=== PATIENT | male | born 1940 | race Caucasian/White ===

== ENCOUNTER 2018-07-19 18:11 | Inpatient (IN) | payer OTHER ==
[~2018-07-19] VITALS: Ht 180.3 cm; Wt 105.5 kg
[2018-07-19 19:38] LABS: Basophils # (auto) 0.1 uL; Basophils % (auto) 0.7 % (0.0-2.0); Eosinophils # (auto) 0.1 uL; Eosinophils % (auto) 1.3 % (0.0-7.0); Hematocrit 42.3 % (41.0-53.0); Hemoglobin 14.1 g/dL (13.5-17.5); Lymphocytes % (auto) 21.3 % (10.0-50.0); Mean Corpuscular Hemoglobin 33.6 pg (28.0-32.0); Mean Corpuscular Hgb Conc. 33.3 g/dL (32.0-36.0); Mean Corpuscular Volume 100.8 fL (80.0-100.0); Monocytes # (auto) 0.8 uL; Monocytes % (auto) 8.1 % (0.0-12.0); Neutrophils # (auto) 6.5 uL; Neutrophils % (auto) 68.6 % (37.0-80.0); Nucleated Red Blood Cells % 0.1 %; Platelet Count (auto) 341 10^3/uL (140-450); Red Cell Distribution Width 12.7 % (11.8-14.3); White Blood Cell 9.4 10^3/uL (4.4-10.8)
[2018-07-19 19:53] LABS: Urine WBC None Seen /hpf (0 - 3)
[2018-07-19 19:54] LABS: INR 0.93 (0.9-1.15); Partial Thromboplastin Time 27.8 sec (23.78-33.04)
[2018-07-19 19:56] LABS: Alanine Aminotransferase 17 U/L (16-61); Albumin 3.2 g/dL (3.4-5.0); Anion Gap 6 (5-15); Aspartate Aminotransferase 15 U/L (15-37); BUN/Creatinine Ratio 9.6; Blood Urea Nitrogen 11 mg/dL (7-18); Calcium 8.4 mg/dL (8.5-10.1); Carbon Dioxide 27 mmol/L (21-32); Chloride 108 mmol/L (98-107); GFR African American 79 mL/min; GFR Non-African American 66 mL/min; Glucose 107 mg/dL (74-106); Magnesium 2.2 mg/dL (1.6-2.6); Potassium 4.3 mmol/L (3.5-5.1); Sodium 141 mmol/L (136-145)
[2018-07-19 20:01] LABS: Alkaline Phosphatase 71 U/L (45-117); Bilirubin, Total 0.6 mg/dL (0.2-1.0); Total Protein 6.8 g/dL (6.4-8.2)
[2018-07-19 20:12] LABS: Urine Bacteria NONE SEEN /hpf (None Seen); Urine Blood Negative /uL (Negative); Urine Specific Gravity 1.003 (1.001-1.035)
[2018-07-19] MEDS ORDERED: TEMAZEPAM 15 MG CAP PO PRN (22:00)
[2018-07-19] MEDS ORDERED: ONDANSETRON HCL 4 MG/2 ML VIAL IV PRN (22:00)
[2018-07-19] MEDS ORDERED: LEVOFLOXACIN 500MG 100 ML IV ONE (22:00)
[2018-07-19] MEDS: FAMOTIDINE 20 MG TAB PO SCH (22:00)
[2018-07-19] MEDS ORDERED: DOCUSATE SOD 100 MG CAP PO PRN (22:00)
[2018-07-19] MEDS: PRAVASTATIN SODIUM 20 MG TAB PO SCH (22:00)
[2018-07-19] MEDS ORDERED: ACETAMINOPHEN 325 MG TAB PO PRN (22:00)
[2018-07-19] MEDS ORDERED: DONEPEZIL HYDROCHLORIDE 5 MG TAB PO SCH (22:00)
[2018-07-19] MEDS: HYDROcodone-ACET 5/325MG TAB PO PRN (22:20)
[2018-07-20] MEDS ORDERED: LORazepam 2MG/ML-1ML VIAL ONE (01:42)
[2018-07-20] MEDS ORDERED: LORazepam 2MG/ML-1ML VIAL IV ONE ×2 (01:45→03:30)
[2018-07-20] MEDS ORDERED: HALOPERIDOL LACTATE 5 MG/ML INJ VIAL IM ONE ×3 (02:30→18:30)
[2018-07-20] MEDS ORDERED: HALOPERIDOL LACTATE 5 MG/ML INJ VIAL ONE (02:53)
[2018-07-20] MEDS ORDERED: PRAV20TA3 PO (09:19)
[2018-07-20] MEDS ORDERED: LOSA-49 PO (09:19)
[2018-07-20] MEDS ORDERED: DONE10TA17 PO (09:19)
[2018-07-20] MEDS ORDERED: QUET25TA37 PO (09:19)
[2018-07-20] MEDS ORDERED: FELO10TA PO (09:19)
[2018-07-20] MEDS: LEVOFLOXACIN 500MG 100 ML IV SCH (11:30)
[2018-07-20] MEDS: ENOXAPARIN SOD 40 MG/0.4 ML SYRINGE SC SCH (11:30)
[2018-07-20] MEDS: LOSARTAN POTASSIUM 50 MG TAB PO SCH (11:34)
[2018-07-20] MEDS: FAMOTIDINE 20 MG TAB PO SCH ×2 (11:34→22:01)
[2018-07-20] MEDS: LORazepam 0.5 MG TAB PO PRN (15:33)
[2018-07-20 20:20] VITALS: BP 124/72
[2018-07-20] MEDS: PRAVASTATIN SODIUM 20 MG TAB PO SCH (22:01)
[2018-07-20] MEDS: DONEPEZIL HYDROCHLORIDE 5 MG TAB PO SCH (22:01)
[2018-07-20] MEDS: QUEtiapine FUMARATE 25 MG TAB PO SCH (22:02)
[2018-07-21 04:27] VITALS: BP 129/73
[2018-07-21 09:00] VITALS: BP 148/67
[2018-07-21] MEDS: ENOXAPARIN SOD 40 MG/0.4 ML SYRINGE SC SCH (10:35)
[2018-07-21] MEDS: LEVOFLOXACIN 500MG 100 ML IV SCH (10:35)
[2018-07-21] MEDS: LOSARTAN POTASSIUM 50 MG TAB PO SCH (10:36)
[2018-07-21] MEDS: FAMOTIDINE 20 MG TAB PO SCH ×2 (10:36→21:39)
[2018-07-21 12:50] VITALS: BP 131/62
[2018-07-21] MEDS: LORazepam 0.5 MG TAB PO PRN ×2 (14:28→15:54)
[2018-07-21] MEDS ORDERED: LEVO500T21 PO (15:30)
[2018-07-21] MEDS ORDERED: SACC250C PO (15:30)
[2018-07-21 16:44] VITALS: BP 142/70
[2018-07-21 17:52] LABS: Basophils # (auto) 0 uL; Basophils % (auto) 0.4 % (0.0-2.0); Eosinophils # (auto) 0.1 uL; Eosinophils % (auto) 1.3 % (0.0-7.0); Hematocrit 45.7 % (41.0-53.0); Hemoglobin 15.2 g/dL (13.5-17.5); Lymphocytes # (auto) 1.9 uL; Lymphocytes % (auto) 18.7 % (10.0-50.0); Mean Corpuscular Hemoglobin 33.4 pg (28.0-32.0); Mean Corpuscular Hgb Conc. 33.2 g/dL (32.0-36.0); Mean Corpuscular Volume 100.6 fL (80.0-100.0); Monocytes # (auto) 0.9 uL; Monocytes % (auto) 8.6 % (0.0-12.0); Neutrophils # (auto) 7.3 uL; Platelet Count (auto) 374 10^3/uL (140-450); Red Blood Cells 4.54 10^6/uL (4.5-5.90); Red Cell Distribution Width 12.6 % (11.8-14.3); White Blood Cell 10.2 10^3/uL (4.4-10.8)
[2018-07-21 18:29] LABS: Calcium 9.7 mg/dL (8.5-10.1); Magnesium 2.2 mg/dL (1.6-2.6); Potassium 4.6 mmol/L (3.5-5.1)
[2018-07-21 18:39] LABS: BUN/Creatinine Ratio 12.5
[2018-07-21] MEDS: HYDROcodone-ACET 5/325MG TAB PO PRN (20:43)
[2018-07-21] MEDS: PRAVASTATIN SODIUM 20 MG TAB PO SCH (21:39)
[2018-07-21] MEDS: DONEPEZIL HYDROCHLORIDE 5 MG TAB PO SCH (21:39)
[2018-07-21] MEDS: QUEtiapine FUMARATE 25 MG TAB PO SCH (21:40)
[2018-07-21 22:00] VITALS: BP 139/91
[2018-07-22 05:04] VITALS: BP 141/75
[2018-07-22 08:00] VITALS: BP 148/67
[2018-07-22 09:00] VITALS: BP 149/82
[2018-07-22] MEDS ORDERED: LEVOFLOXACIN 500 MG TAB PO SCH (10:00)
[2018-07-22] MEDS: FAMOTIDINE 20 MG TAB PO SCH (10:12)
[2018-07-22] MEDS: ENOXAPARIN SOD 40 MG/0.4 ML SYRINGE SC SCH (10:12)
[2018-07-22] MEDS: LOSARTAN POTASSIUM 50 MG TAB PO SCH (10:12)
[2018-07-22 12:32] VITALS: BP 149/82
[2018-07-22 13:00] VITALS: BP 150/84
[2018-07-22 13:30] VITALS: BP 149/82
== END 2018-07-22 16:00 | DRG 70 ==
LOC: ER 18:20 → OVERFLOW 18:21 → WEST WING 07-20 08:30
PROVIDERS: ADMIT Nurse Practitioner; ATTEND Internal Medicine
DX: G93.41 Metabolic encephalopathy (principal); J18.9 Pneumonia, unspecified organism; I24.9 Acute ischemic heart disease, unspecified; F41.9 Anxiety disorder, unspecified; F03.90 Unspecified dementia, unspecified severity, without behavioral disturbance, psychotic disturbance, mood disturbance, and anxiety; E78.5 Hyperlipidemia, unspecified; I10 Essential (primary) hypertension; Z86.73 Personal history of transient ischemic attack (TIA), and cerebral infarction without residual deficits
CPT/HCPCS: 36415; 70450; 71045; 71250; 80048; 80053; 80061; 81001; 83735; 84443; 84484; 85025; 85610; 85730; 93005; 94761; 96365; 96372; 96375; J1956

== ENCOUNTER 2024-02-23 20:28 | Emergency (ER) | payer OTHER ==
[~2024-02-23] VITALS: Ht 182.9 cm; Wt 110.0 kg
[~2024-02-23 20:28] MED LIST: DONE10TA9 PO; FELO10TA28 PO; LEVO500T31 PO; LOSA-535 PO; PRAV20TA3 PO; QUET25TA37 PO; SACC250C PO
[2024-02-23 21:27] LABS: Basophils # (auto) 0 10 ^3/uL (0-0.2); Basophils % (auto) 0.4 % (0.0-2.0); Eosinophils # (auto) 0.1 10 ^3/uL (0-0.8); Eosinophils % (auto) 0.4 % (0.0-7.0); Hematocrit 49.2 % (41.0-53.0); Hemoglobin 16.5 g/dL (13.5-17.5); Lymphocytes # (auto) 1.3 10 ^3/uL (0.4-5.4); Lymphocytes % (auto) 9.5 % (10.0-50.0); Mean Corpuscular Hemoglobin 32.1 pg (28.0-32.0); Mean Corpuscular Hgb Conc. 33.5 g/dL (32.0-36.0); Mean Corpuscular Volume 95.8 fL (80.0-100.0); Monocytes # (auto) 1.1 10 ^3/uL (0-1.3); Neutrophils # (auto) 10.8 10 ^3/uL (1.6-8.6); Neutrophils % (auto) 81.7 % (37.0-80.0); Red Blood Cells 5.13 10^6/uL (4.5-5.90); Red Cell Distribution Width 13.6 % (11.8-14.3); White Blood Cell 13.3 10^3/uL (4.4-10.8)
[2024-02-23 21:47] LABS: INR 1.03 (0.9-1.15); Partial Thromboplastin Time 29.4 SEC (24.5-34.5); Prothrombin Time 10.8 sec (9.3-11.8)
[2024-02-23 21:48] LABS: Alanine Aminotransferase 22 U/L (7-40); Albumin 4.1 g/dL (3.2-4.8); Alkaline Phosphatase 63 U/L (46-116); Anion Gap 8 (5-15); Aspartate Aminotransferase 25 U/L (13-40); BUN/Creatinine Ratio 13.3 (10.0-20.0); Blood Urea Nitrogen 14 mg/dL (9-23); Calcium 9.4 mg/dL (8.5-10.1); Carbon Dioxide 25 mmol/L (20-30); Chloride 105 mmol/L (98-107); Glucose 125 mg/dL (74-106); Potassium 4.6 mmol/L (3.5-5.1); Sodium 138 mmol/L (136-145)
[2024-02-23 21:49] LABS: Bilirubin, Total 0.6 mg/dL (0.2-1.0); Total Protein 6.6 g/dL (5.7-8.2)
[2024-02-24 00:30] VITALS: PULSE 89; RESP 20; O2SAT 94
[2024-02-24] MEDS ORDERED: CEPH250C PO (01:01)
[2024-02-24] MEDS ORDERED: ACET500T58 PO (01:01)
[2024-02-24] MEDS: LORazepam 2MG/ML-1ML VIAL IM ONE (02:07)
[2024-02-24] MEDS: LORazepam 2MG/ML-1ML VIAL ONE (02:07)
[2024-02-24 10:51] VITALS: BP 114/74; PULSE 85; RESP 15; TEMP 98.5; O2SAT 98
== END 2024-02-24 12:00 ==
LOC: ER 20:28 → EDBD 20:28 → ER 02-24 12:00
DX: S01.01XA Laceration without foreign body of scalp, initial encounter (principal); I10 Essential (primary) hypertension; E78.5 Hyperlipidemia, unspecified; F03.90 Unspecified dementia, unspecified severity, without behavioral disturbance, psychotic disturbance, mood disturbance, and anxiety; Z86.73 Personal history of transient ischemic attack (TIA), and cerebral infarction without residual deficits; Z98.890 Other specified postprocedural states; Z79.899 Other long term (current) drug therapy; Z86.2 Personal history of diseases of the blood and blood-forming organs and certain disorders involving the immune mechanism; W01.198A Fall on same level from slipping, tripping and stumbling with subsequent striking against other object, initial encounter; Y93.89 Activity, other specified; Y92.89 Other specified places as the place of occurrence of the external cause; Y99.8 Other external cause status
CPT/HCPCS: 12002; 36415; 70450; 72125; 80053; 84484; 85025; 85610; 85730; 93005; 96372; 99284; J2060

== ENCOUNTER 2024-10-15 17:22 | Emergency (ER) | payer OTHER ==
[~2024-10-15] VITALS: Ht 172.7 cm; Wt 86.0 kg
[2024-10-15] MEDS: SOD CHL 0.45% 500 ML IV ONE (02:33)
[~2024-10-15 17:22] MED LIST changes: +ACET500T58 PO; +CEPH250C PO
--- NOTE | 2024-10-15 18:05 | ED.PDOC ---
History of Present Illness HPI Comments 84 year old male MEG presents to the ED with chief complaint of generalized weakness. EMS reports patient is coming from [facility] with noted generalized weakness as patient normally gets out of bed every day, except for today. EMS relays patient is not able to give any accurate history due to his dementia and patient has no complaints at this time or the reason why he is in the ED. Patient states he was sleeping when EMS arrived and does not remember anything about today. Patient denies any and all symptoms at this time. Chief Complaint: General Weakness Time Seen by MD: 17:58 Primary Care Provider: DR. FRAGOSO Reviewed Notes: Nurses Notes, Channel Installer Notes, Medications, Allergies Allergies: Coded Allergies: Penicillins (Verified Allergy, Unknown, 07/19/18) Home Meds Active Scripts Acetaminophen (Acetaminophen) 500 Mg Tab, 500 MG PO Q4HP PRN, #30 TAB Prov:REMEDIOS NIXON PAC 02/24/24 Cephalexin (KEFLEX CAPSULE) 250 Mg Cp, 1 CAP PO QID for 7 Days, #28 CAP Prov:REMEDIOS NIXON PAC 02/24/24 Yeast (S. Boulardii)(S. Cerevi (Florastor) 250 Mg Cap, 250 MG PO DAILY, #7 CAP Prov:IRA TOMAS MD 07/21/18 Levofloxacin (Levaquin) 500 Mg Tab, 500 MG PO DAILY, #5 TAB Prov:IRA TOMAS MD 07/21/18 Reported Medications Felodipine (Felodipine Er) 10 Mg Tab, 10 MG PO DAILY for 30 Days, MG 07/20/18 Losartan Potassium (Losartan Potassium) 100 Mg Tab, 1 TAB PO DAILY, #30 TAB 5 Refills 07/20/18 Donepezil Hydrochloride (Aricept) 10 Mg Tab, 10 MG PO DAILY, TAB 07/20/18 Pravastatin Sodium (PRAVACHOL TABLET) 20 Mg Tb, 2 TAB PO QHSP, #90 TAB 1 Refill 07/20/18 Quetiapine Fumerate (Seroquel) 25 Mg Tab, 25 MG PO QHSP for 30 Days, MG 07/20/18 Information Source: Patient, Emergency Med Personnel Mode of Arrival: EMS Severity: Moderate Timing: Hours Duration: Since onset Prehospital treatment: None Past Medical History PAST MEDICAL HISTORY: Dementia, High Lipids, HTN, TIA Surgical History: Hernia Repair Family History Family History: Reviewed,noncontributory to illness, Unknown Social History Smoker: Non-Smoker Alcohol: Denies ETOH Use Drugs: Denies Drug Use Lives In: Assisted Care Constitutional: reports: weakness; denies: chills, diaphoresis, fatigue, fever, malaise, sweats, others EENTM: denies: blurred vision, double vision, ear bleeding, ear discharge, ear drainage, ear pain, ear ringing, eye pain, eye redness, hearing loss, mouth pain, mouth swelling, nasal discharge, nose bleeding, nose congestion, nose pain, photophobia, tearing, throat pain, throat swelling, voice changes, others Respiratory: denies: cough, hemoptysis, orthopnea, SOB at rest, shortness of breath, SOB with excertion, stridor, wheezing, others Cardiovascular: denies: chest pain, dizzy spells, diaphoresis, Dyspnea on exertion, edema, irregular heart beat, left arm pain, lightheadedness, palpitations, PND, syncope, others Gastrointestinal: denies: abdomen distended, abdominal pain, blood streaked bowels, constipated, diarrhea, dysphagia, difficulty swallowing, hematemesis, melena, nausea, poor appetite, poor fluid intake, rectal bleeding, rectal pain, vomiting, others Genitourinary: denies: burning, dysuria, flank pain, frequency, hematuria, incontinence, penile discharge, penile sore, pain, testicle pain, testicle swelling, urgency, others Neurological: denies: dizziness, fainting, headache, left sided numbness, left sided weakness, numbness, paresthesia, pre-existing deficit, right sided numbness, right sided weakness, seizure, speech problems, tingling, tremors, weakness, others Musculoskeletal: denies: back pain, gout, joint pain, joint swelling, muscle pain, muscle stiffness, neck pain, others Integumetry: denies: bruises, change in color, change in hair/nails, dryness, laceration, lesions, lumps, rash, wounds, others Allergic/Immunocompromised: denies: Difficulty Healing, Frequent Infections, Hives, Itching, others Hematologic/Lymphatic: denies: anemia, blood clots, easy bleeding, easy bruising, swollen glands, others Endocrine: denies: excessive hunger, excessive sweating, excessive thirst, excessive urination, flushing, intolerance to cold, intolerance to heat, unexplained weight gain, unexplained weight loss, others Psychiatric: denies: anxiety, bipolar disorder, depression, hopeless, panic di sorder, schizophrenia, sleepless, suicidal, others Unable to Obtain due to: Dementia All Other Systems: Reviewed and Negative Physical Exam General Appearance: No Apparent Distress, Normal, Other (Patient cooperative and has clear speech) HEENT: Normal ENT Inspection, Pharynx Normal, TMs Normal Neck: Full Range of Motion, Non-Tender, Normal, Normal Inspection Respiratory: Chest Non-Tender, Lungs Clear, No Accessory Muscle Use, No Respiratory Distress, Normal Breath Sounds Cardiovascular: No Edema, No JVD, No Murmur, No Gallop, Normal Peripheral Pulses, Regular Rate/Rhythm Breast Exam: Deferred Gastrointestinal: No Organomegaly, No Pulsatile Mass, Normal Bowel Sounds, Soft, Tenderness (mild diffused) Genitalia: Deferred Pelvic: Deferred Rectal: Deferred Extremities: No calf tenderness, Normal capillary refill, Normal inspection, Normal range of motion, Non-tender, No pedal edema Musculoskeletal : Apperance: Normal Neurologic: Alert, ent nurse II-XII nml as Tested, No Motor Deficits, Normal Affect, Normal Mood, No Sensory Deficits Cerebellar Function: Normal Reflexes: Normal Skin: Dry, Normal Color, Warm Lymphatic: No Adenopathy Was a procedure done? Was a procedure done?: No EKG EKG : Pulse Rate (adult): 77 [place]: LAD Cardiac Rhythm: NSR, PVC's Block: None Hypertrophy: None ST: Normal Differential Dx Considerations may include: uti, pneumonia, dementia, viral infection, hypoglycemia, hypotension, electrolyte disorders X-Ray, Labs, Meds, VS Vital Signs Date Time Temp Pulse Resp B/P (MAP) Pulse Ox O2 Delivery O2 Flow Rate FiO2 10/15/24 19:49 77 10/15/24 17:45 97.9 69 18 126/67 (86) 98 Lab Test 10/15/24 19:30 10/15/24 18:30 Range/Units Troponin I High Sensitivity 13 14 </=54 ng/L White Blood Count 8.8 4.4-10.8 10^3/uL Red Blood Count 5.32 4.5-5.90 10^6/uL Hemoglobin 16.9 13.5-17.5 g/dL Hematocrit 50.9 41.0-53.0 % Mean Corpuscular Volume 95.5 80.0-100.0 fL Mean Corpuscular Hemoglobin 31.7 28.0-32.0 pg Mean Corpuscular Hemoglobin Concent 33.2 32.0-36.0 g/dL Red Cell Distribution Width 14.0 11.8-14.3 % Platelet Count 293 140-450 10^3/uL Mean Platelet Volume 9.8 6.9-10.8 fL Neutrophils (%) (Auto) 64.9 37.0-80.0 % Lymphocytes (%) (Auto) 23.2 10.0-50.0 % Monocytes (%) (Auto) 8.4 0.0-12.0 % Eosinophils (%) (Auto) 3.3 0.0-7.0 % Basophils (%) (Auto) 0.2 0.0-2.0 % Neutrophils # (Auto) 5.7 1.6-8.6 10 ^3/uL Lymphocytes # (Auto) 2.1 0.4-5.4 10 ^3/uL Monocytes # (Auto) 0.7 0-1.3 10 ^3/uL Eosinophils # (Auto) 0.3 0-0.8 10 ^3/uL Basophils # (Auto) 0 0-0.2 10 ^3/uL Nucleated Red Blood Cells 0.1 % Sodium Level 138 136-145 mmol/L Potassium Level 4.2 3.5-5.1 mmol/L Chloride Level 106 98-107 mmol/L Carbon Dioxide Level 27 20-31 mmol/L Anion Gap 5 5-15 Blood Urea Nitrogen 14 9-23 mg/dL Creatinine 1.01 0.700-1.30 mg/dL Glomerular Filtration Rate Calc 73 >90 mL/min BUN/Creatinine Ratio 13.9 10.0-20.0 Serum Glucose 121 H 74-106 mg/dL Calcium Level 10.0 8.7-10.4 mg/dL Total Bilirubin 0.5 0.2-1.0 mg/dL Aspartate Amino Transferase (AST) 19 13-40 U/L Alanine Aminotransferase (ALT) 24 7-40 U/L Alkaline Phosphatase 97 46-116 U/L Total Protein 7.1 5.7-8.2 g/dL Albumin 4.1 3.2-4.8 g/dL Lipase 34 12-53 U/L Time of 1ST Reevaluation: 18:58 Reevaluation 1ST: Unchanged Patient Education/Counseling: Diagnosis, Treatment, Prognosis, Need For Follow Up Family Education/Counseling: No Family Present Additional Information I reviewed the following notes from the pt's past medical encounters: Visit for head trauma on 02/23/24. The following tests were ordered, and results were reviewed by me: CBC, CMP, Troponin, UA, chest XR, and EKG. Additional information was gathered from interviewing the following independent historians: EMT and nursing staff. I reviewed and agreed with the following test results read by other providers: Chest XR I discussed treatments and results with medical personnel. pt has dementia and does not have any complaints nor knows why he is here. however, [facility] staff found him to ve noticeably weaker. the workup shows he may have pneumonia. he will be admitted for treatment and monitoring Departure 1 Departure Time of Disposition: 20:50 Impression: Primary Impression: Generalized weakness Additional Impressions: Pneumonia Qualified Codes: J18.9 - Pneumonia, unspecified organism Abdominal tenderness Qualified Codes: R10.817 - Generalized abdominal tenderness Disposition: ADMITTED INPATIENT Admit to: Med Surg Condition: Stable Critical Care Note Critical Care Time?: Yes (45 min-critical care time only) Critical care comment: due to concerns for pt's condition deteriorating, the care required my highest level of attention and readiness to intervene. i assessed the patient, ordered the appropriate treatments and tests and reassessed his response. i communicated with medical personnel and consultants, i reviewed his medical records, and formulated a treatment plan. cc time does not include any procedures Stability Stability form required: No Heart Score Heart Score: Heart Score Response (Comments) Value History N/A 0 EKG N/A 0 Age N/A 0 Risk Factors N/A 0 Troponin N/A 0 Total 0 I personally scribed for CODY GARDUNO MD ([email or web address]) on 10/15/24 at 18:04. Electronically submitted by Uriel Sibley ([email or web address]). CODY GARDUNO MD Oct 15, 2024 18:04
[2024-10-15 18:58] LABS: Basophils # (auto) 0 10 ^3/uL (0-0.2); Basophils % (auto) 0.2 % (0.0-2.0); Eosinophils # (auto) 0.3 10 ^3/uL (0-0.8); Eosinophils % (auto) 3.3 % (0.0-7.0); Hematocrit 50.9 % (41.0-53.0); Hemoglobin 16.9 g/dL (13.5-17.5); Lymphocytes # (auto) 2.1 10 ^3/uL (0.4-5.4); Lymphocytes % (auto) 23.2 % (10.0-50.0); Mean Corpuscular Hemoglobin 31.7 pg (28.0-32.0); Mean Corpuscular Hgb Conc. 33.2 g/dL (32.0-36.0); Mean Corpuscular Volume 95.5 fL (80.0-100.0); Monocytes # (auto) 0.7 10 ^3/uL (0-1.3); Monocytes % (auto) 8.4 % (0.0-12.0); Neutrophils # (auto) 5.7 10 ^3/uL (1.6-8.6); Neutrophils % (auto) 64.9 % (37.0-80.0); Nucleated Red Blood Cells % 0.1 %; Platelet Count (auto) 293 10^3/uL (140-450); Red Blood Cells 5.32 10^6/uL (4.5-5.90); White Blood Cell 8.8 10^3/uL (4.4-10.8)
[2024-10-15 19:02] LABS: Alanine Aminotransferase 24 U/L (7-40); Albumin 4.1 g/dL (3.2-4.8); Alkaline Phosphatase 97 U/L (46-116); Anion Gap 5 (5-15); Aspartate Aminotransferase 19 U/L (13-40); BUN/Creatinine Ratio 13.9 (10.0-20.0); Blood Urea Nitrogen 14 mg/dL (9-23); Carbon Dioxide 27 mmol/L (20-31); Chloride 106 mmol/L (98-107); Potassium 4.2 mmol/L (3.5-5.1); Sodium 138 mmol/L (136-145)
[2024-10-15 19:03] LABS: Bilirubin, Total 0.5 mg/dL (0.2-1.0); Total Protein 7.1 g/dL (5.7-8.2)
[2024-10-15 19:06] LABS: Glucose 121 mg/dL (74-106)
--- NOTE | 2024-10-15 19:40 | DVH ---
CHEST RADIOGRAPH Indication: weakness Technique: Single frontal view of the chest was obtained Comparison: None FINDINGS: Lines and Tubes: None Lungs: Right lower lung zone opacification. Linear densities over the left lung base. Elevated right hemidiaphragm. No pneumothorax. Cardiomediastinal contours: Unremarkable Bones: No acute osseous abnormality. IMPRESSION: Right lower lung zone pneumonia/atelectasis with left basilar atelectasis
--- NOTE | 2024-10-15 19:50 | DVH ---
Exam: CT CT AB PEL WO CON-NO ORAL OR IV History: pain Comparison Study: None available at time of dictation. TECHNIQUE: Multidetector CT of the abdomen and pelvis without contrast. Axial, coronal and sagittal m ultiplanar reformats were obtained from the axial data set by the technologist. Radiation Dose Information: CT Dose: CTDI volume is 13.14 mGy. Dose-length product is 844.92 mGy*cm FINDINGS: Bibasilar ground-glass opacities with inter lobar septal thickening. Elevated right hemidiaphragm. Mi ld cardiomegaly. 3.9 cm left hepatic lobe cyst. Otherwise, liver, spleen, pancreas and adrenal glands unremarkable. C holelithiasis with no CT evidence of acute cholecystitis. Mild nonspecific bilateral perirenal fat stranding. Multiple right renal cysts, largest measuring up to 4.8 cm. No hydronephrosis or renal calculi bilaterally. Thickening of the urinary bladder which is most likely from inadequate distension. Prostate is enlarged measuring 4.6 x 5.1 by 5.6 cm with calc ification. Small hiatal hernia. Stomach is unremarkable. Small bowel loops unremarkable. Appendix is not definit stefano visualized. Small to moderate amount of fecal material within the colon. Colonic diverticulosis w ithout diverticulitis. No evidence of intraperitoneal free air or free fluid. No evidence of aortic aneurysm. Moderate to heavy atherosclerotic calcification of the aorta and bila teral iliacs. No significant lymphadenopathy. Small fat containing left inguinal hernia with focus of calcification within the left inguinal canal. Multilevel severe degenerative changes of the lumbar spine. Anterior wedge deformity of L1 with abou t 50% loss of vertebral body height. There is anterior wedge deformity with about 20-30% loss of vert ebral body height of T12. Inferior T10 compression fracture with mild loss of vertebral body height o f unknown chronicity. Multilevel anterior bridging osteophytes of the thoracic and upper lumbar spine . IMPRESSION: Mild wall thickening of the urinary bladder which is most likely from inadequate distension. Correla tion with urinalysis is recommended to exclude cystitis. Colonic diverticulosis without diverticulitis. Right renal cysts. Cholelithiasis with no CT evidence of acute cholecystitis. If there is concern for acute cholecystit is, right upper quadrant ultrasound should be considered for further evaluation. Right hepatic lobe cyst. Bibasilar atelectasis/ scarring with underlying infectious process not excluded. Enlarged prostate. Recommend correlation with PSA. Anterior wedge deformity of L1 and T12 as detailed above. Compression fracture of the inferior verteb ral body of T10 of unknown chronicity. Additional findings as above.
[2024-10-15] MEDS: cefTRIAXone 1GM/50ML D5W 50 ML IV ONE (20:00)
[2024-10-15] MEDS ORDERED: LEVO500T91 PO (22:02)
[2024-10-15 22:45] VITALS: PULSE 86; RESP 15; TEMP 98.8; O2SAT 94
[2024-10-15] MEDS: levoFLOXacin 500MG 100 ML IV ONE (23:18)
--- NOTE | 2024-10-16 06:43 | ECG ---
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
--- NOTE | 2024-10-16 06:44 | ECG ---
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
[2024-10-16 08:40] VITALS: PULSE 53; RESP 16; O2SAT 95
[2024-10-16 10:00] VITALS: BP 154/84; PULSE 63; RESP 22; O2SAT 92
--- NOTE | 2024-10-16 12:48 | DVHDS2 ---
Physician Discharge Progress N Final Diagnosis: Pneumonia Operations or Procedures: Operations or Procedures none Other Interventions Other Interventions EKG, CXR, CT, lab results Consultations: Consultations none Commentary: Commentary 84 year old man was transferred from his living facility - [facility]. He has dementia and the staff informed ENTs that the patient was weaker that usually and he didn't want to get out of his bed today. Patient denied any symptoms including SOB or cough. His VS were within normal limits with O2 sat of 95% on RA. CXR showed right lower pneumonia/atelectasis. WBC was normal. Patient was given Levaquin IV but refused IVF. He remained stable in the ED. He was discharged back to [facility] to continue Levaquin for a week. Condition on Discharge: Stable Disposition: Assisted Living Facility SNF Discharge Will this Physician continue t: No Discharge Instructions: Diet: Cardiac 2g Na,low cholest Activity: No Restrictions, As Tolerated Follow Up/Referral: PMD in 3 days Medications: Levofloxacin 500 mg PO daily for 7 days. Prescription is sent to the pharmacy Follow Up Care: Discharge Statement: "Patient was advised to return to the ER or call 911 if any headaches, dizziness, shortness of breath, chest pain, abdominal pain, bleeding, fevers, or worsening of medical condition. Patient was counseled about treatment plan, medications, possible side effects, patientverbalized understanding. All questions were answered to the best of my ability. This discharge took greater then 30 minutes in planning, reviewing documentation, counseling the patient, and discussing with other team members." ERICA ALVAREZ MD Oct 16, 2024 12:48
== END 2024-10-16 11:13 ==
LOC: ER 17:22 → EDBD 17:22 → ER 10-16 11:13
DX: J18.9 Pneumonia, unspecified organism (principal); R53.1 Weakness; R10.819 Abdominal tenderness, unspecified site; E78.5 Hyperlipidemia, unspecified; I10 Essential (primary) hypertension; Z86.73 Personal history of transient ischemic attack (TIA), and cerebral infarction without residual deficits; Z88.0 Allergy status to penicillin; Z79.899 Other long term (current) drug therapy; Z98.890 Other specified postprocedural states
CPT/HCPCS: 36415; 71045; 74176; 80053; 83690; 84484; 85025; 93005; 96365; 99284; J1956

== ENCOUNTER 2025-08-29 23:02 | Emergency (ER) | payer OTHER ==
[~2025-08-29] VITALS: Ht 177.8 cm; Wt 81.0 kg
[~2025-08-29 23:02] MED LIST changes: +LEVO500T91 PO
--- NOTE | 2025-08-29 23:16 | ED.PDOC ---
History of Present Illness HPI Comments 84-year-old male who came to ER via EMS for weakness. Patient picked up at [facility]. He has a history of hypertension and dementia. Was seen lying on the ground office bedroom floor, preventing the door from opening, and preventing his wheelchair-bound roommate from getting out. Patient was noted to be acting more altered and confused than usual. Blood sugars on scene was 130. Denies any pain REVIEW OF SYSTEMS: General: No fever, no chills, or fatigue HEENT: No sore throat, no earache, no congestion, no neck pain. Cardiac: No chest pain. No palpitations. Lungs: No shortness of breath, no cough. GI: No nausea, no vomiting, no diarrhea, no constipation, no abdominal pain : No dysuria, frequency, or urgency. No hematuria. Musculoskeletal: No joint pain , no joint swelling, no extremity edema. Skin: No rash, no itching. Neuro: No headache, no dizziness, no weakness Physical exam GEN: Patient alert, in no acute distress HEENT: Atraumatic, normocephalic without edema, discoloration or evidence of trauma. Facial bones without deformities or tenderness EYES: PERRL. no scleral icterus or conjunctival injection. Extraocular muscles intact without nystagmus or diplopia. No proptosis or enophthalmos. EARS: Normal-appearing pinnae. No hemotympanum. NOSE: Trachea midline. No discolorations or edema. Neck immobilized in cervical collar. CVS: S1-S2 heard, regular rate and rhythm, no murmur RESPIRATORY: No respiratory distress. Breath sounds clear bilateral, no wheezes, rhonchi or rales; no use of accessory muscles CHEST: No abrasions or ecchymosis. Chest symmetric with respirations. No chest wall tenderness. No crepitus. No step-offs. Lungs are clear to auscultation bilaterally. No rales, rhonchi, wheezing or stridor. ABDOMINAL: No ecchymosis or abrasions. Soft, nondistended, nontender. Bowel tones normoactive. No masses or organomegaly. : No CVA tenderness MUSC: No gross deformities are discolorations or lesions. Tolerates full range of motion of extremities without tenderness. No edema of the extremities. BACK: No abrasions, skin openings or ecchymosis. Spine without bony tenderness. No step-offs. PELVIC: Pelvis stable, nontender to lateral compression and palpation of the symphysis pubis. NEURO: Alert and confused. GCS 15. 5 out of 5 in bilateral upper and lower extremities. SKIN: Warm and well perfused. No lacerations, bruises, discoloration or abrasions. PSYCH: Normal affect, normal mood, no apparent hallucinations, speech clear LYMPHATIC: No cervical lymphadenopathy Chief Complaint: Weakness Time Seen by MD: 23:15 Primary Care Provider: DR. FRAGOSO Reviewed Notes: [employer] Notes Allergies: Coded Allergies: Iodine (Verified Allergy, Unknown, 08/29/25) Penicillins (Verified Allergy, Unknown, 07/19/18) Home Meds Active Scripts Levofloxacin Hemihydrate (LEVOFLOXACIN) 500 Mg Tab, 1 TAB PO DAILY, #7 TAB Prov:ERICA ALVAREZ MD 10/15/24 Acetaminophen (Acetaminophen) 500 Mg Tab, 500 MG PO Q4HP PRN, #30 TAB Prov:REMEDIOS NIXON PAC 02/24/24 Cephalexin (KEFLEX CAPSULE) 250 Mg Cp, 1 CAP PO QID for 7 Days, #28 CAP Prov:REMEDISO NIXON PAC 02/24/24 Yeast (S. Boulardii)(S. Cerevi (Florastor) 250 Mg Cap, 250 MG PO DAILY, #7 CAP Prov:IRA TOMAS MD 07/21/18 Levofloxacin (Levaquin) 500 Mg Tab, 500 MG PO DAILY, #5 TAB Prov:IRA TOMAS MD 07/21/18 Reported Medications Felodipine (Felodipine Er) 10 Mg Tab, 10 MG PO DAILY for 30 Days, MG 07/20/18 Losartan Potassium (Losartan Potassium) 100 Mg Tab, 1 TAB PO DAILY, #30 TAB 5 Refills 07/20/18 Donepezil Hydrochloride (Aricept) 10 Mg Tab, 10 MG PO DAILY, TAB 07/20/18 Pravastatin Sodium (PRAVACHOL TABLET) 20 Mg Tb, 2 TAB PO QHSP, #90 TAB 1 Refill 07/20/18 Quetiapine Fumerate (Seroquel) 25 Mg Tab, 25 MG PO QHSP for 30 Days, MG 07/20/18 Information Source: Patient, Emergency Med Personnel Mode of Arrival: EMS Past Medical History PAST MEDICAL HISTORY: Dementia, High Lipids, HTN, TIA Surgical History: Hernia Repair Family History Family History: Reviewed,noncontributory to illness Social History Smoker: Non-Smoker Alcohol: Denies ETOH Use Drugs: Denies Drug Use Lives In: Assisted Care Was a procedure done? Was a procedure done?: No EKG EKG : Comments Multiple PVCs. No STEMI. Differential Dx Considerations may include: Anemia, electrolyte imbalance, encephalopathy, dementia, fall injury X-Ray, Labs, Meds, VS Vital Signs Date Time Temp Pulse Resp B/P (MAP) Pulse Ox O2 Delivery O2 Flow Rate FiO2 08/30/25 01:30 96 13 134/68 (90) 94 08/30/25 00:49 95 08/29/25 23:30 Room Air* 0 21 08/29/25 23:30 99.1 90 20 130/64 (86) 92 99.1 08/29/25 23:15 96 08/29/25 23:05 100.1 92 18 134/64 92 100.1 Lab Test 08/30/25 02:15 08/30/25 00:25 08/30/25 00:11 08/29/25 23:21 Range/Units Troponin I High Sensitivity 42 42 45 </=54 ng/L Urine Color Light-orange Yellow Urine Clarity Ex.turbid Clear Urine pH 6.0 5.0-9.0 Urine Specific [place] 1.014 1.001-1.035 Urine Protein 1+ H Negative Urine Ketones 1+ H Negative Urine Blood 1+ H Negative /uL Urine Nitrite 2+ H Negative Urine Bilirubin Negative Negative Urine Urobilinogen Normal Negative mg/dL Urine Leukocyte Esterase 3+ Negative /uL Urine RBC 10 0 - 3 /hpf Urine WBC Clumps Present None Seen /hpf Urine Microscopic WBC 2107 H 0-3 /HPF Urine Squamous Epithelial Cells None seen <5 /hpf Urine Bacteria Many H None Seen /hpf Urine Glucose Normal Normal mg/dL White Blood Count 10.5 4.4-10.8 10^3/uL Red Blood Count 5.13 4.5-5.90 10^6/uL Hemoglobin 16.0 13.5-17.5 g/dL Hematocrit 47.7 41.0-53.0 % Mean Corpuscular Volume 92.9 80.0-100.0 fL Mean Corpuscular Hemoglobin 31.2 28.0-32.0 pg Mean Corpuscular Hemoglobin Concent 33.6 32.0-36.0 g/dL Red Cell Distribution Width 14.4 H 11.8-14.3 % Platelet Count 278 140-450 10^3/uL Mean Platelet Volume 9.9 6.9-10.8 fL Neutrophils (%) (Auto) 78.1 37.0-80.0 % Lymphocytes (%) (Auto) 9.0 L 10.0-50.0 % Monocytes (%) (Auto) 12.6 H 0.0-12.0 % Eosinophils (%) (Auto) 0.0 0.0-7.0 % Basophils (%) (Auto) 0.3 0.0-2.0 % Neutrophils # (Auto) 8.2 1.6-8.6 10 ^3/uL Lymphocytes # (Auto) 0.9 0.4-5.4 10 ^3/uL Monocytes # (Auto) 1.3 0-1.3 10 ^3/uL Eosinophils # (Auto) 0 0-0.8 10 ^3/uL Basophils # (Auto) 0 0-0.2 10 ^3/uL Nucleated Red Blood Cells 0.1 % Sodium Level 139 136-145 mmol/L Potassium Level 4.2 3.5-5.1 mmol/L Chloride Level 106 98-107 mmol/L Carbon Dioxide Level 23 20-31 mmol/L Anion Gap 10 5-15 Blood Urea Nitrogen 11 9-23 mg/dL Creatinine 1.21 0.700-1.30 mg/dL Glomerular Filtration Rate Calc 59 >90 mL/min BUN/Creatinine Ratio 9.1 L 10.0-20.0 Serum Glucose 139 H 74-106 mg/dL Lactic Acid Level 1.1 0.4-2.0 mmol/L Calcium Level 9.2 8.7-10.4 mg/dL Magnesium Level 2.0 1.6-2.6 mg/dL B-Type Natriuretic Peptide 156.97 0-100 pg/mL Time of 1ST Reevaluation: 23:12 Reevaluation 1ST: Unchanged Patient Education/Counseling: Need For Follow Up Family Education/Counseling: No Family Present SEPSIS Sepsis Screen Physician Orders Straight Cath. (08/29/25 ) Chest Xray 1 View (08/29/25 23:07) Vital Signs Date Time Temp Pulse Resp B/P (MAP) Pulse Ox O2 Delivery O2 Flow Rate FiO2 08/30/25 01:30 96 13 134/68 (90) 94 08/30/25 00:49 95 08/29/25 23:30 Room Air* 0 21 08/29/25 23:30 99.1 90 20 130/64 (86) 92 99.1 08/29/25 23:15 96 08/29/25 23:05 100.1 92 18 134/64 92 100.1 Laboratory Tests Test 08/29/25 23:21 Lactic Acid Level 1.1 mmol/L (0.4-2.0) White Blood Count 10.5 10^3/uL (4.4-10.8) Departure 1 Departure Time of Disposition: 03:27 Impression: Primary Impression: Fall Disposition: HOME / SELF CARE / HOMELESS Condition: Stable Additional Instructions: ED DISCHARGE INSTRUCTIONS Instructions: Please read all instructions provided in this packet carefully. Although you have been discharged from the Emergency Department, this does not mean that you have a "clean bill of health". No definitive diagnosis for your symptoms has been made today. It is possible that you are in the process of developing a serious illness. This is why you must return to the ED without fail if any new or worsening symptoms (especially if your symptoms include chest pain, trouble breathing, abdominal pain, fever, headache, confusion, trouble seeing, or trouble walking) It is also very important that you see a primary care provider (PCP) within the next 3-5 days to follow up. If you are unable to get an appointment, return to the ED for re-evaluation. Comments MDM: 84-year-old male with fall. No apparent injury on exam. Patient able to ambulate around the emergency department during the ED observation. He is felt stable for discharge back to SNF. I reviewed the following notes from the pt's past medical encounters: Encounter October 2024 for lethargy The following tests were ordered, and results were reviewed by me: (See diagnostic results section) The following test were independently interpreted by me: EKG Additional information was gathered from interviewing the following independent historians: EMS personnel I reviewed and agreed with the following test results read by other providers: Chest x-ray I discussed treatments and results with patient Decision regarding hospitalization or escalation of hospital level of care: Risks and benefits of admission for further treatment of patient's condition was considered however due to patient's stable condition patient will be discharged to follow up closely or return to care for worsening of condition or inability to follow up. Critical Care Note Critical Care Time?: No Stability Stability form required: No Heart Score Heart Score: Heart Score Response (Comments) Value History N/A 0 EKG N/A 0 Age N/A 0 Risk Factors N/A 0 Troponin N/A 0 Total 0 I personally scribed for KRISHNA TENORIO MD ([email or web address]) on 08/29/25 at 23:16. Electronically submitted by Jeremiah Thomas ([email or web address]). KRISHNA TENORIO MD Aug 29, 2025 23:16
[2025-08-29 23:30] VITALS: TEMP 99.1
[2025-08-29 23:30] LABS: Hematocrit 47.7 % (41.0-53.0); Hemoglobin 16.0 g/dL (13.5-17.5); Mean Corpuscular Hemoglobin 31.2 pg (28.0-32.0); Mean Corpuscular Volume 92.9 fL (80.0-100.0); Nucleated Red Blood Cells % 0.1 %
[2025-08-29 23:35] LABS: Chloride 106 mmol/L (98-107); Potassium 4.2 mmol/L (3.5-5.1); Sodium 139 mmol/L (136-145)
[2025-08-29 23:36] LABS: Anion Gap 10 (5-15); Carbon Dioxide 23 mmol/L (20-31)
[2025-08-29 23:37] LABS: Calcium 9.2 mg/dL (8.7-10.4)
[2025-08-29 23:42] LABS: BUN/Creatinine Ratio 9.1 (10.0-20.0); Blood Urea Nitrogen 11 mg/dL (9-23); Magnesium 2.0 mg/dL (1.6-2.6)
[2025-08-29 23:47] LABS: Glucose 139 mg/dL (74-106)
--- NOTE | 2025-08-29 23:49 | DVH ---
CHEST RADIOGRAPH Indication: Syncope Technique: Single frontal view of the chest was obtained COMPARISON: XY CHEST PORTABLE on DOS: 10/15/24 FINDINGS: Lines and Tubes: None Lungs: Clear. Mild right hemidiaphragmatic eventration. Pleura: No effusion. No pneumothorax. Cardiomediastinal contours: Unremarkable Bones: Unremarkable IMPRESSION: 1. No radiographic evidence of acute cardiopulmonary abnormality.
[2025-08-30 01:06] LABS: Urine Protein, UAD 1+ (Negative); Urine WBC Clumps PRESENT /hpf (None Seen)
[2025-08-30 01:30] VITALS: BP 134/68; PULSE 96; RESP 13; O2SAT 94
--- NOTE | 2025-09-02 10:20 | ECG ---
[facility] Test Date: 2025-08-29 Test Time: 23:09:19 Pat Name: ISRAEL CORTES Department: [facility] ED Patient ID: [facility]-[id number] Room: Gender: M Medical Doctor Md: : 1940 Requested By: KRISHNA TENORIO Order Number: [id number] Reading MD: Tae Dueñas Measurements Intervals [place] Rate: 96 P: 41 TN: 179 QRS: 72 QRSD: 102 T: 21 QT: 371 QTc: 469 Interpretive Statements Sinus tachycardia Ventricular trigeminy Probable anteroseptal infarct, old Electronically Signed On 09-09-2025 13:13:08 PST by Tae Dueñas Please click the below link to view image of tracing.
--- NOTE | 2025-09-02 10:20 | ECG ---
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
== END 2025-08-30 12:40 | disposition home or self-care (01) ==
LOC: ER 23:02 → EDBD 23:02 → ER 08-30 12:40
DX: R53.1 Weakness (principal); R41.82 Altered mental status, unspecified; Z88.0 Allergy status to penicillin; Z88.8 Allergy status to other drugs, medicaments and biological substances; Z98.890 Other specified postprocedural states; W19.XXXA Unspecified fall, initial encounter; Y93.89 Activity, other specified; Y92.89 Other specified places as the place of occurrence of the external cause; Y99.8 Other external cause status
CPT/HCPCS: 36415; 71045; 80048; 81001; 83605; 83735; 83880; 84484; 85025; 93005

== ENCOUNTER 2025-09-06 05:20 | Inpatient (IN) | payer OTHER ==
[~2025-09-06] VITALS: Ht 185.4 cm; Wt 87.6 kg
--- NOTE | 2025-09-06 06:58 | ED.PDOC ---
Brendan. trauma (HPI) HPI Comments 84 y.o male with PMHx of dementia, HLD, and HTN, presents to the ED via EMS following an unwitnessed fall last night. According to EMS, the patient was found on the floor next to his bed at the [facility]. The patient is currently disoriented, but his baseline mental status is difficult to ascertain due to his known dementia. A limited history was obtained because of his symptoms and cognitive state. Chief Complaint: Fall Injury Time Seen by MD: 06:20 Primary Care Provider: DR. FRAGOSO Reviewed notes: Nurses Notes, Rand Cementer Notes, Medications, Allergies Allergies: Coded Allergies: Iodine (Verified Allergy, Unknown, 08/29/25) Penicillins (Verified Allergy, Unknown, 07/19/18) Home Meds Active Scripts Levofloxacin Hemihydrate (LEVOFLOXACIN) 500 Mg Tab, 1 TAB PO DAILY, #7 TAB Prov:ERICA ALVAREZ MD 10/15/24 Acetaminophen (Acetaminophen) 500 Mg Tab, 500 MG PO Q4HP PRN, #30 TAB Prov:REMEDIOS NIXON PAC 02/24/24 Cephalexin (KEFLEX CAPSULE) 250 Mg Cp, 1 CAP PO QID for 7 Days, #28 CAP Prov:REMEDIOS NIXON PAC 02/24/24 Yeast (S. Boulardii)(S. Cerevi (Florastor) 250 Mg Cap, 250 MG PO DAILY, #7 CAP Prov:IRA TOMAS MD 07/21/18 Levofloxacin (Levaquin) 500 Mg Tab, 500 MG PO DAILY, #5 TAB Prov:IRA TOMAS MD 07/21/18 Reported Medications Felodipine (Felodipine Er) 10 Mg Tab, 10 MG PO DAILY for 30 Days, MG 07/20/18 Losartan Potassium (Losartan Potassium) 100 Mg Tab, 1 TAB PO DAILY, #30 TAB 5 Refills 07/20/18 Donepezil Hydrochloride (Aricept) 10 Mg Tab, 10 MG PO DAILY, TAB 07/20/18 Pravastatin Sodium (PRAVACHOL TABLET) 20 Mg Tb, 2 TAB PO QHSP, #90 TAB 1 Refill 07/20/18 Quetiapine Fumerate (Seroquel) 25 Mg Tab, 25 MG PO QHSP for 30 Days, MG 07/20/18 Information Source: Emergency Med Personnel Mode of Arrival: EMS Severity: Moderate Timing: Hours Duration: Since onset Mechanism: Fall Associated signs and symtoms: Other Past Medical History PAST MEDICAL HISTORY: Dementia, High Lipids, HTN, TIA Surgical History: Hernia Repair Family History Family History: Reviewed,noncontributory to illness Social History Smoker: Non-Smoker Alcohol: Denies ETOH Use Drugs: Denies Drug Use Lives In: Assisted Care Unable to Obtain due to: Dementia Physical Exam General Appearance: Moderate Distress HEENT: Normal ENT Inspection, Pharynx Normal, TMs Normal Neck: Full Range of Motion, Non-Tender, Normal, Normal Inspection Respiratory: Chest Non-Tender, Lungs Clear, No Accessory Muscle Use, No Respiratory Distress, Normal Breath Sounds Cardiovascular: Irregular, No Edema, No JVD, No Murmur, No Gallop, Normal Peripheral Pulses Breast Exam: Deferred Gastrointestinal: No Organomegaly, Non Tender, No Pulsatile Mass, Normal Bowel Sounds, Soft Genitalia: Deferred Pelvic: Deferred Rectal: Deferred Extremities: No calf tenderness, No pedal edema Musculoskeletal : Apperance: Normal Neurologic: Disoriented Cerebellar Function: NOT DONE Reflexes: NOT DONE Skin: Dry, Normal Color, Warm Peripheral Pulses: 3+ Radial (R), 3+ Radial (L) Lymphatic: No Adenopathy Was a procedure done? Was a procedure done?: No Differential Diagnosis Multiple Trauma: Fractures, Contusion X-Ray, Labs, Meds, VS Vital Signs Date Time Temp Pulse Resp B/P (MAP) Pulse Ox O2 Delivery O2 Flow Rate FiO2 09/06/25 05:20 98.9 94 16 140/94 94 98.9 Lab Test 09/06/25 07:03 Range/Units White Blood Count 18.2 H 4.4-10.8 10^3/uL Red Blood Count 5.02 4.5-5.90 10^6/uL Hemoglobin 15.7 13.5-17.5 g/dL Hematocrit 46.7 41.0-53.0 % Mean Corpuscular Volume 93.1 80.0-100.0 fL Mean Corpuscular Hemoglobin 31.2 28.0-32.0 pg Mean Corpuscular Hemoglobin Concent 33.6 32.0-36.0 g/dL Red Cell Distribution Width 14.8 H 11.8-14.3 % Platelet Count 331 140-450 10^3/uL Mean Platelet Volume 10.7 6.9-10.8 fL Neutrophils (%) (Auto) 85.6 H 37.0-80.0 % Lymphocytes (%) (Auto) 6.2 L 10.0-50.0 % Monocytes (%) (Auto) 7.7 0.0-12.0 % Eosinophils (%) (Auto) 0.1 0.0-7.0 % Basophils (%) (Auto) 0.4 0.0-2.0 % Neutrophils # (Auto) 15.5 H 1.6-8.6 10 ^3/uL Lymphocytes # (Auto) 1.1 0.4-5.4 10 ^3/uL Monocytes # (Auto) 1.4 H 0-1.3 10 ^3/uL Eosinophils # (Auto) 0 0-0.8 10 ^3/uL Basophils # (Auto) 0.1 0-0.2 10 ^3/uL Nucleated Red Blood Cells 0.0 % Sodium Level 144 136-145 mmol/L Potassium Level 4.0 3.5-5.1 mmol/L Chloride Level 109 H 98-107 mmol/L Carbon Dioxide Level 26 20-31 mmol/L Anion Gap 9 5-15 Blood Urea Nitrogen 35 H 9-23 mg/dL Creatinine 1.91 H 0.700-1.30 mg/dL Glomerular Filtration Rate Calc 34 >90 mL/min BUN/Creatinine Ratio 18.3 10.0-20.0 Serum Glucose 175 H 74-106 mg/dL Calcium Level 8.7 8.7-10.4 mg/dL Troponin I High Sensitivity 125 *H </=54 ng/L Current Medications Medications (Trade) Dose Ordered Sig/Abilio Route Start Time Stop Time Status Last Admin Sodium Chloride 1,000 ml @ 1,000 mls/hr Q1H ONCE IV 09/06/25 06:45 09/06/25 07:44 DC 09/06/25 09:[address] [address] Ph: [phone] DIAGNOSTIC IMAGING Diagnostic Imaging Report : [id number] Signed PATIENT: ISRAEL CORTES ACCT: [id number] UNIT: [id number] : 1940 LOC: ER ROOM / BED: / AGE / SEX: 84 / M ADM STATUS: REG ER SERVICE ORDERING PHYSICIAN: MIRANDA REAL MD PROCEDURE(s): PELVS - PELVIS AP REASON: fall ORDER NUMBER(s): [id number], ACCESSION NUMBER(s): [id number] XY PELVIS AP HISTORY: fall TECHNICAL DATA: Single frontal view of the pelvis was obtained. COMPARISON: None FINDINGS: There is bilateral hip joint space narrowing. No dislocation. No acute fracture. IMPRESSION: 1. No acute osseous abnormality. ATED BY: MARIA G AGUILAR MD DICTATED DATE/TIME: 09/06/25724 SIGNED BY: MARIA G AGUILAR MD SIGNED DATE/TIME: 09/06/25724 CC: [place] [address] Ph: [phone] DIAGNOSTIC IMAGING Diagnostic Imaging Report : [id number] Signed PATIENT: ISRAEL CORTES ACCT: [id number] UNIT: [id number] : 1940 LOC: ER ROOM / BED: / AGE / SEX: 84 / M ADM STATUS: REG ER SERVICE 0 ORDERING PHYSICIAN: MIRANDA REAL MD PROCEDURE(s): CXRP - CHEST PORTABLE REASON: sob ORDER NUMBER(s): [id number], ACCESSION NUMBER(s): [id number] CHEST RADIOGRAPH Indication: sob Technique: Single frontal view of the chest was obtained Comparison: XY CHEST XRAY 1 VIEW on DOS: 08/29/25 FINDINGS: Lines and Tubes: None Lungs: Elevated right hemidiaphragm. Bibasilar airspace disease. Pleura: No effusion. No pneumothorax. Cardiomediastinal contours: Cardiomegaly. Bones: No acute osseous abnormality. IMPRESSION: 1. Bibasilar airspace disease. ATED BY: MARIA G AGUILAR MD DICTATED DATE/TIME: 09/06/25722 SIGNED BY: MARIA G AGUILAR MD SIGNED DATE/TIME: 09/06/25722 CC: Patient unable to answering any questions. Moves his extremities. Vitals stable. Answering questions. No sign of any injury. Unable to get any history from the patient. He will be admitted for metabolic encephalopathy. Continue monitoring. Time of 1ST Reevaluation: 06:55 Reevaluation 1ST: Unchanged Patient Education/Counseling: Other (Pt has hx of dementia ) Family Education/Counseling: No Family Present Departure 1 Departure Time of Disposition: 07:19 Impression: Primary Impression: Atrial fibrillation Qualified Codes: I48.0 - Paroxysmal atrial fibrillation Additional Impression: Metabolic encephalopathy Disposition: ADMITTED INPATIENT Admit to: Med Surg Condition: Guarded Critical Care Note Critical Care Time?: Yes (90 min-critical care time only) Stability Stability form required: No I personally scribed for MIRANDA REAL MD ([email or web address]) on 09/06/25 at 06:58. Electronically submitted by Chata Echavarria ([email or web address]). I personally scribed for MIRANDA REAL MD ([email or web address]) on 09/06/25 at 10:28. Electronically submitted by Zackery Chan ([email or web address]). MIRANDA REAL MD Sep 06, 2025 06:58
[2025-09-06 07:15] LABS: Hematocrit 46.7 % (41.0-53.0); Hemoglobin 15.7 g/dL (13.5-17.5); Mean Corpuscular Hemoglobin 31.2 pg (28.0-32.0); Mean Corpuscular Volume 93.1 fL (80.0-100.0); Nucleated Red Blood Cells % 0.0 %
[2025-09-06 07:19] LABS: Potassium 4.0 mmol/L (3.5-5.1); Sodium 144 mmol/L (136-145)
[2025-09-06 07:20] LABS: Anion Gap 9 (5-15); Calcium 8.7 mg/dL (8.7-10.4); Carbon Dioxide 26 mmol/L (20-31); Chloride 109 mmol/L (98-107)
[2025-09-06 07:25] LABS: BUN/Creatinine Ratio 18.3 (10.0-20.0)
--- NOTE | 2025-09-06 07:25 | DVH ---
CHEST RADIOGRAPH Indication: sob Technique: Single frontal view of the chest was obtained Comparison: XY CHEST XRAY 1 VIEW on DOS: 08/29/25 FINDINGS: Lines and Tubes: None Lungs: Elevated right hemidiaphragm. Bibasilar airspace disease. Pleura: No effusion. No pneumothorax. Cardiomediastinal contours: Cardiomegaly. Bones: No acute osseous abnormality. IMPRESSION: 1. Bibasilar airspace disease.
[2025-09-06 07:27] LABS: Blood Urea Nitrogen 35 mg/dL (9-23); Glucose 175 mg/dL (74-106)
--- NOTE | 2025-09-06 07:27 | DVH ---
XY PELVIS AP HISTORY: fall TECHNICAL DATA: Single frontal view of the pelvis was obtained. COMPARISON: None FINDINGS: There is bilateral hip joint space narrowing. No dislocation. No acute fracture. IMPRESSION: 1. No acute osseous abnormality.
[2025-09-06 08:00] VITALS: PULSE 91; RESP 23; O2SAT 97
[2025-09-06] MEDS: SODIUM CHLORIDE 0.9% 1,000 ML IV ONE (09:21)
--- NOTE | 2025-09-06 11:01 | DVH ---
EXAM: CT HEAD WITHOUT CONTRAST INDICATION: Altered mental status. TECHNIQUE: CT of the head without intravenous contrast. Coronal and sagittal reformatted images are s ubmitted. Radiation Dose : 1. Head: CT Dose: CTDI volume is 53.79 mGy. Dose-length product is 971.88 mGy*cm The dose indicators for CT are the volume Computed Tomography (CT) Dose Index (CTDIvol) and the Dose Length Product (DLP), and are measured in units of mGy and mGy-cm, respectively. These indicators are not patient dose, but values generated from the CT scanner acquisition factors. The report includes radiation exposure data for exposures received during this examination. All CT scans at this medical facility are performed using dose modulation techniques as appropriate to a performed exam including the following: Automated exposure control was utilized; adjustment of the MA and/or KV according to patient size; and use of iterative reconstruction technique. COMPARISON: CT HEAD WITHOUT CONTRAST on DOS: 02/23/24 FINDINGS: There is no evidence of acute intracranial hemorrhage, extra-axial collection, mass effect, midline s hift, herniation or hydrocephalus. The ventricles, sulci and cisterns are age appropriate. The samano-white differentiation is intact. The visualized paranasal sinuses and mastoid air cells are clear. No depressed calvarial fracture. The surrounding soft tissues are unremarkable. IMPRESSION: 1. No evidence of acute intracranial abnormality.
[2025-09-06] MEDS ORDERED: NITROGLYCERIN 0.4 MG SL TAB SL PRN (13:00)
[2025-09-06] MEDS ORDERED: HYDROcodone-ACET 5/325MG TAB PO PRN (13:00)
[2025-09-06] MEDS ORDERED: ONDANSETRON HCL 4 MG/2 ML VIAL IV PRN (13:00)
[2025-09-06] MEDS ORDERED: MORPHINE SULFATE INJ 2 MG/ml SYRG IV PRN (13:00)
[2025-09-06] MEDS ORDERED: ACETAMINOPHEN 325 MG TAB PO PRN (13:00)
[2025-09-06] MEDS: ERTAPENEM SOD INJ 1 GM in SODIUM CHL 0.9% 50 ML IV ONE (14:38)
[2025-09-06] MEDS: ENOXAPARIN SOD 40 MG/0.4 ML SYRINGE SC SCH (14:39)
[2025-09-06 16:45] VITALS: BP 144/85; PULSE 58; RESP 19; TEMP 97.6; O2SAT 98
[2025-09-06 17:56] VITALS: BP 144/85; PULSE 58; RESP 19; TEMP 97.6; O2SAT 98
[2025-09-06 20:00] VITALS: PULSE 95
[2025-09-06 21:00] VITALS: BP 132/89; PULSE 89; RESP 17; TEMP 98.4; O2SAT 97
[2025-09-07] VITALS (8 sets, daily range): BP systolic 113–141; BP diastolic 52–83; PULSE 54–98; RESP 16–17; TEMP 97.7–98.6; O2SAT 94–96
[2025-09-07 07:11] LABS: Hematocrit 45.5 % (41.0-53.0); Hemoglobin 14.9 g/dL (13.5-17.5); Mean Corpuscular Hemoglobin 30.4 pg (28.0-32.0); Mean Corpuscular Volume 92.8 fL (80.0-100.0); Nucleated Red Blood Cells % 0.0 %
[2025-09-07 07:34] LABS: Alkaline Phosphatase 60 U/L (46-116); Anion Gap 10 (5-15); BUN/Creatinine Ratio 20.1 (10.0-20.0); Bilirubin, Total 0.7 mg/dL (0.2-1.0); Carbon Dioxide 27 mmol/L (20-31); Potassium 4.0 mmol/L (3.5-5.1); Total Protein 6.0 g/dL (5.7-8.2)
[2025-09-07 07:36] LABS: Alanine Aminotransferase < 9 U/L (7-40); Albumin 3.1 g/dL (3.2-4.8); Blood Urea Nitrogen 40 mg/dL (9-23); Calcium 8.4 mg/dL (8.7-10.4); Chloride 111 mmol/L (98-107); Glucose 157 mg/dL (74-106); Sodium 148 mmol/L (136-145)
[2025-09-07] MEDS: ERTAPENEM SOD INJ 1 GM in SODIUM CHL 0.9% 50 ML IV SCH (11:00)
--- NOTE | 2025-09-07 21:59 | DVHHP2 ---
History of Present Illness HPI 84 y.o male with PMHx of dementia, HLD, and HTN, presents to the ED via EMS following an unwitnessed fall last night. According to EMS, the patient was found on the floor next to [facility]. The patient is currently disoriented, but his baseline mental status is difficult to ascertain due to his known dementia. A limited history was obtained because of his symptoms and cognitive state. Home Meds Active Scripts Levofloxacin Hemihydrate (LEVOFLOXACIN) 500 Mg Tab, 1 TAB PO DAILY, #7 TAB Prov:ERICA ALVAREZ MD 10/15/24 Acetaminophen (Acetaminophen) 500 Mg Tab, 500 MG PO Q4HP PRN, #30 TAB Prov:REMEDIOS NIXON PAC 02/24/24 Cephalexin (KEFLEX CAPSULE) 250 Mg Cp, 1 CAP PO QID for 7 Days, #28 CAP Prov:REMEDIOS NIXON PAC 02/24/24 Yeast (S. Boulardii)(S. Cerevi (Florastor) 250 Mg Cap, 250 MG PO DAILY, #7 CAP Prov:IRA TOMAS MD 07/21/18 Levofloxacin (Levaquin) 500 Mg Tab, 500 MG PO DAILY, #5 TAB Prov:IRA TOMAS MD 07/21/18 Reported Medications Felodipine (Felodipine Er) 10 Mg Tab, 10 MG PO DAILY for 30 Days, MG 07/20/18 Losartan Potassium (Losartan Potassium) 100 Mg Tab, 1 TAB PO DAILY, #30 TAB 5 Refills 07/20/18 Donepezil Hydrochloride (Aricept) 10 Mg Tab, 10 MG PO DAILY, TAB 07/20/18 Pravastatin Sodium (PRAVACHOL TABLET) 20 Mg Tb, 2 TAB PO QHSP, #90 TAB 1 Refill 07/20/18 Quetiapine Fumerate (Seroquel) 25 Mg Tab, 25 MG PO QHSP for 30 Days, MG 07/20/18 Past Medical History Patient Family History: Breast cancer in mother G8 MOTHER, Onset:50's - 60 Review of Systems Constitutional: No symptom reported Pulmonary/Respiratory: No symptom reported Cardiovascular: No symptom reported Gastrointestinal: No symptom reported H&P Exam Vital Signs Vital Signs Date Time Temp Pulse Resp B/P (MAP) Pulse Ox O2 Delivery O2 Flow Rate FiO2 09/07/25 16:47 98.6 92 16 128/83 (98) 94 98.6 09/07/25 08:15 Nasal Cannula* 4 36 General Appeara: Well developed, Well nourished Nasal Exam: Normal inspection Pulmonary/Respiratory: Normal inspection SEPSIS Sepsis Screen Date sepsis recognized/suspect: Sep 06, 2025 Time Sepsis recognized/suspect: 0800 Recent Procedure: No On Antibiotic Therapy: No Respiratory Rate >20: Yes Heart Rate >90: No Temp<36 C (96.8 F) or >38.3 C: No SBP <90 or MAP <65 mmHG: No New Acute Mental Status Change: No Is the patient on CPAP, BIPAP,: No Physician Orders Apply Z-Guard BID (09/07/25 11:05) * Dietary Consult (09/07/25 15:25) Cleanse Wound With Wound Clean BID (09/07/25 11:05) Vital Signs Date Time Temp Pulse Resp B/P (MAP) Pulse Ox O2 Delivery O2 Flow Rate FiO2 09/07/25 16:47 98.6 92 16 128/83 (98) 94 98.6 Labs/Xrays Labs Test 09/07/25 06:25 09/06/25 13:01 Range/Units White Blood Count 16.6 H 4.4-10.8 10^3/uL Red Blood Count 4.91 4.5-5.90 10^6/uL Hemoglobin 14.9 13.5-17.5 g/dL Hematocrit 45.5 41.0-53.0 % Mean Corpuscular Volume 92.8 80.0-100.0 fL Mean Corpuscular Hemoglobin 30.4 28.0-32.0 pg Mean Corpuscular Hemoglobin Concent 32.8 32.0-36.0 g/dL Red Cell Distribution Width 14.8 H 11.8-14.3 % Platelet Count 326 140-450 10^3/uL Mean Platelet Volume 11.1 H 6.9-10.8 fL Neutrophils (%) (Auto) 78.9 37.0-80.0 % Lymphocytes (%) (Auto) 10.0 10.0-50.0 % Monocytes (%) (Auto) 9.7 0.0-12.0 % Eosinophils (%) (Auto) 1.3 0.0-7.0 % Basophils (%) (Auto) 0.1 0.0-2.0 % Neutrophils # (Auto) 13.1 H 1.6-8.6 10 ^3/uL Lymphocytes # (Auto) 1.7 0.4-5.4 10 ^3/uL Monocytes # (Auto) 1.6 H 0-1.3 10 ^3/uL Eosinophils # (Auto) 0.2 0-0.8 10 ^3/uL Basophils # (Auto) 0 0-0.2 10 ^3/uL Nucleated Red Blood Cells 0.0 % Sodium Level 148 H 136-145 mmol/L Potassium Level 4.0 3.5-5.1 mmol/L Chloride Level 111 H 98-107 mmol/L Carbon Dioxide Level 27 20-31 mmol/L Anion Gap 10 5-15 Blood Urea Nitrogen 40 H 9-23 mg/dL Creatinine 1.99 H 0.700-1.30 mg/dL Glomerular Filtration Rate Calc 33 >90 mL/min BUN/Creatinine Ratio 20.1 H 10.0-20.0 Serum Glucose 157 H 74-106 mg/dL Calcium Level 8.4 L 8.7-10.4 mg/dL Total Bilirubin 0.7 0.2-1.0 mg/dL Aspartate Amino Transferase (AST) 16 13-40 U/L Alanine Aminotransferase (ALT) < 9 7-40 U/L Alkaline Phosphatase 60 46-116 U/L Total Protein 6.0 5.7-8.2 g/dL Albumin 3.1 L 3.2-4.8 g/dL Troponin I High Sensitivity 104 *H </=54 ng/L Assessment/Plan Primary Diagnosis 84 y.o male with PMHx of dementia, HLD, and HTN, presents to the ED via EMS following an unwitnessed fall last night. According to EMS, the patient was found on the floor next to [facility]. The patient is currently disoriented, but his baseline mental status is difficult to ascertain due to his known dementia. A limited history was obtained because of his symptoms and cognitive state. Atrial fibrillation Metabolic encephalopathy recent CVA recent UTI cxr indicate bibasilar opacities sepsis with suspected PNA dementia continue with [facility] tx for pna further evaluation Plan discussed with: Patient UNRULY SANDHU DO Sep 07, 2025 21:59
--- NOTE | 2025-09-07 21:59 | DVHPN2 ---
Progress Note Date Seen: Sep 07, 2025 Medical Necessity Reason Pt with a Central, PICC or Fol: No Objective vital signs Vital Sign Date Time Temp Pulse Resp B/P (MAP) Pulse Ox O2 Delivery O2 Flow Rate FiO2 09/07/25 16:47 98.6 92 16 128/83 (98) 94 98.6 09/07/25 08:15 Nasal Cannula* 4 36 Total Intake and Output 09/06/25 09/06/25 09/07/25 15:00 23:00 07:00 Intake Total 1000 ml 50 ml 1200 ml Balance 1000 ml 50 ml 1200 ml medications Current Medications Medications Dose Ordered Sig/Abilio Route Start Time Stop Time Status Last Admin Dose Admin Acetaminophen/ Hydrocodone Bitart 1 tab Q4HP PRN PO 09/06/25 13:00 Ondansetron HCl 4 mg Q4HP PRN IV 09/06/25 13:00 Acetaminophen 650 mg Q6HP PRN PO 09/06/25 13:00 Morphine Sulfate 2 mg Q4HPRN PRN IV 09/06/25 13:00 Enoxaparin Sodium 40 mg DAILY SC 09/06/25 13:00 09/06/25 14:39 40 MG Nitroglycerin 0.4 mg Q5MINP PRN SL 09/06/25 13:00 Morphine Sulfate 2 mg Q30M PRN IV 09/06/25 13:00 Ertapenem 1 gm/ Sodium Chloride 50 ml @ 100 mls/hr DAILY IV 09/07/25 10:00 Examination: GENERAL:Normal, HEENT:Normal, NECK:Normal, LUNGS:Normal laboratory and microbiology Laboratory Tests 09/07/25 06:25 Test 09/07/25 06:25 Range/Units Serum Glucose 157 H 74-106 mg/dL Labs and/or images reviewed: Labs reviewed by me, Image(s) reviewed by me Problem List/Assessment/Plan Problem List/Assessment/Plan 84 y.o male with PMHx of dementia, HLD, and HTN, presents to the ED via EMS following an unwitnessed fall last night. According to EMS, the patient was found on the floor next to [facility]. The patient is currently disoriented, but his baseline mental status is difficult to ascertain due to his known dementia. A limited history was obtained because of his symptoms and cognitive state. Atrial fibrillation Metabolic encephalopathy recent CVA recent UTI cxr indicate bibasilar opacities sepsis with suspected PNA dementia mechanical fall, rule out fractures continue with [facility] tx for pna further evaluation Plan discussed with: Patient My Orders My Orders Orders - UNRULY SANDHU DO Procedure Category Date Status Time Apply Z-Guard SCARLETT 09/07/25 In Process 11:05 * Dietary Consult CONS 09/07/25 Transmitted 15:25 Cleanse Wound With SCARLETT 09/07/25 In Process Wound Clean 11:05 Dietary Evaluation Review Comments: 1) Initiate Ensure High Protein bid 2) Initiate MVI @ 1 tb qd 3) Initiate vitamin C @ 500 mg bid and zinc sulfate @ 220 mg qd for 7 days 4) Follow-up with neurology, nephrology, cardiology, and pulmonology 5) Continue to monitor I&O, labs, and skin integrity Expected Outcomes/Goals: 1) appetite and labs to improve 2) wounds to improve 3) f/u in 3-5 days UNRULY SANDHU DO Sep 07, 2025 21:59
[2025-09-08] VITALS (7 sets, daily range): BP systolic 135–147; BP diastolic 62–82; PULSE 67–90; RESP 17–20; TEMP 98.1–99.8; O2SAT 96–98
[2025-09-08 10:53] LABS: Urine Budding Yeast OCCASIONAL /hpf (None Seen); Urine Protein, UAD Negative (Negative); Urine WBC Clumps PRESENT /hpf (None Seen)
[2025-09-08] MEDS ORDERED: CLINIMIX PER PHARMACY 0 ML IV SCH (15:00)
[2025-09-08 15:27] LABS: Base Excess -1.2 mmol/L (-2.0-3.0)
[2025-09-08] MEDS ORDERED: DEXTROSE (50%) 50ML SYRG IV SCH (15:30)
[2025-09-08 16:50] LABS: Triglycerides 122.0 mg/dL (< 150)
[2025-09-08 16:51] LABS: Magnesium 2.4 mg/dL (1.6-2.6)
--- NOTE | 2025-09-08 17:12 | DVH ---
PROCEDURE: MRI BRAIN HEAD WO CONTRAST Indication: R/O Stroke COMPARISON: None TECHNIQUE: Multiplanar multisequence images of the brain are obtained. FINDINGS: Limited examination. Only DWI and axial T2 images are obtained There are numerous foci diffusion restriction within the bilateral jaffe radiata and subcortical reg ions, [id number]- right. There are old bilateral basal ganglia lacunar infarcts. The ventricles are midline and normal in size. Cisterns patent. Major intracranial flow voids intact . Mild global cerebral volume loss. Mastoids well pneumatized. Mucosal thickening ethmoids. Orbits and retrobulbar spaces unremarkable. IMPRESSION: Limited examination. Only DWI and axial T2 images submitted for review. Recommend repea t brain MRI when patient is able to tolerate. Numerous foci diffusion restriction within the bilateral jaffe radiata and subcortical regions left- [id number], consistent with acute infarction in the watershed distribution bilaterally. Gabriella elate for thromboembolic, vasospastic etiologies.
[2025-09-08] MEDS: InsuLIN REG 1unit/0.01ml Soln (100units/ml) SC SCH (18:00)
[2025-09-08] MEDS: ACCU-CHEK COMFORT CURVE STRIP VI SCH (18:00)
--- NOTE | 2025-09-08 20:54 | DVH ---
Upper Extremity Venous Duplex Clinical History: Right arm swelling Comparison: None Technique: Duplex Doppler evaluation of the venous system of the RIGHT lower neck and upper extremity including color Doppler and spectral/pulsed waveform analysis was performed. Findings: The internal jugular vein demonstrates appropriate compressibility and waveform variability. The subclavian vein is patent on color Doppler evaluation without intraluminal thrombus and demonstra julián waveform variability. The visualized portion of the brachiocephalic vein is patent on color Doppler evaluation without intr aluminal thrombus and demonstrates waveform variability. The axillary vein demonstrates appropriate compressibility and waveform variability. The brachial veins demonstrate appropriate compressibility and patency on Doppler evaluation. The basilic vein demonstrates appropriate compressibility and patency on Doppler evaluation. The cephalic vein demonstrates no flow or compressibility. Impression: 1. No flow noted in the right cephalic vein and no compressibility consistent with thrombosis.
[2025-09-08] MEDS: AMINO ACID INFUSION IN D10W 1,000 ML IV SCH (21:56)
--- NOTE | 2025-09-08 22:45 | DVHINCON2 ---
Date of service: Sep 08, [address] Norris Reason for Consultation Right-sided weakness History of Present Illness Mr. Rich is a 84 years old gentleman with a history of hypertension, dyslipidemia, TIA, dementia, the patient was brought to the [facility] on 09/15/2025 with a chief company of with a fall, at this time, the patient is awake, but he does not not respond to verbal stimuli, vocalize In the hospital, the patient is found to have leukocytosis, urinary tract infection, hypernatremia. According to his nurse, the patient talked last night, and was only oriented to himself In the hospital, the patient is found to have right-sided weakness, MR brain scan from 09/08/2025 showed evidence of acute stroke in bilateral hemispheres Urinalysis, 09/08/2025: WBC: 54, urine leukocyte esterase: 3+ WBC/HB/PLT/MCV, 09/07/2025: 16.6/40.9/326/92.8 Na 09/06/2025: 144, 09/07/2025: 148 BUN/CR, 09/06/2025: 35/1.91, 09/07/2025: 40/1.99 GFR, 09/06/2025: 33, 09/07/2025: 33 Extremity venous study, 09/08/2025: No flow noted in the right cephalic vein and no compressibility consistent with thrombosis. MRI head, 09/08/2025: Limited examination. Only DWI and axial T2 images submitted for review. Recommend repeat brain MRI when patient is able to tolerate. Numerous foci diffusion restriction within the bilateral jaffe radiata and subcortical regions [id number]-[id number]-[id number]-right, consistent with acute infarction in the watershed distribution bilaterally. Correlate for thromboembolic, vasospastic etiologies. Past Medical History Hypertension, dyslipidemia, TIA, dementia Past Surgical History Hernia repair Family History: Breast cancer in mother G8 MOTHER, Onset:50's - 60 Family History Breast Cancer Social History Smoker: Non-Smoker Alcohol: Denies ETOH Use Drugs: Denies Drug Use Lives In: Assisted Care Allergies: Coded Allergies: Iodine (Verified Allergy, Unknown, 08/29/25) Penicillins (Verified Allergy, Unknown, 07/19/18) Home Meds Active Scripts Levofloxacin Hemihydrate (LEVOFLOXACIN) 500 Mg Tab, 1 TAB PO DAILY, #7 TAB Prov:ERICA ALVAREZ MD 10/15/24 Acetaminophen (Acetaminophen) 500 Mg Tab, 500 MG PO Q4HP PRN, #30 TAB Prov:REMEDIOS NIXON PAC 02/24/24 Cephalexin (KEFLEX CAPSULE) 250 Mg Cp, 1 CAP PO QID for 7 Days, #28 CAP Prov:REMEDIOS NIXON PAC 02/24/24 Yeast (S. Boulardii)(S. Cerevi (Florastor) 250 Mg Cap, 250 MG PO DAILY, #7 CAP Prov:IRA TOMAS MD 07/21/18 Levofloxacin (Levaquin) 500 Mg Tab, 500 MG PO DAILY, #5 TAB Prov:IRA TOMAS MD 07/21/18 Reported Medications Felodipine (Felodipine Er) 10 Mg Tab, 10 MG PO DAILY for 30 Days, MG 07/20/18 Losartan Potassium (Losartan Potassium) 100 Mg Tab, 1 TAB PO DAILY, #30 TAB 5 Refills 07/20/18 Donepezil Hydrochloride (Aricept) 10 Mg Tab, 10 MG PO DAILY, TAB 07/20/18 Pravastatin Sodium (PRAVACHOL TABLET) 20 Mg Tb, 2 TAB PO QHSP, #90 TAB 1 Refill 07/20/18 Quetiapine Fumerate (Seroquel) 25 Mg Tab, 25 MG PO QHSP for 30 Days, MG 07/20/18 Current Medications Current Medications Medications (Trade) Dose Ordered Sig/Abilio Route PRN Reason Start Time Stop Time Status Last Admin Amino Acids 0 ml @ 0 mls/hr PER PHARMACY IV 09/08/25 15:00 Diagnostic Test (Pha) (Accu-Chek Comfort Curve T) 1 strip Q6HR 09/08/25 18:00 09/08/25 18:00 Insulin Human Regular (InsuLIN R) FOLLOW SLIDING SCALE Q6HR SC 09/08/25 18:00 Dextrose 50 ml UD IV 09/08/25 15:30 Amino Acids/ Electrolytes/ Dextrose 1,000 ml @ 42 mls/hr DAILY@2200 IV 09/08/25 22:00 09/08/25 21:56 Review of Systems Unobtainable Vital Signs Vital Signs Date Time Temp Pulse Resp B/P (MAP) Pulse Ox O2 Delivery O2 Flow Rate FiO2 09/08/25 16:33 99.8 80 20 135/82 (99) 96 99.8 09/08/25 08:00 Nasal Cannula* 4 36 Physical Exam GENERAL EXAM: General: the patient is well developed and nourished. No acute distress. HEENT: Normocephalic, neck is supple, no carotid bruits. No mass. RESPIRATORY: Normal respiratory effort with symmetrical lung expansion. Lungs clear to auscultation. CARDIOVASCULAR: Regular rate and rhythm with no murmurs. S1, S2. ABDOMEN: Soft, nontender, normal bowel sound NEUROLOGICAL: MENTAL STATUS: HPI SPEECH, LANGUAGE, HIGHER CORTICAL FUNCTION: He does not vocalize CRANIAL NERVES: #2: Intact visual ayers to confrontation. . #3,4,6: Pupils are equal, round and reactive. Gait eye movement #5: Facial sensation okay in all three divisions bilaterally. Mandibular str ength intact. #7: Facial muscles symmetrical and strength intact. #8: Deferred #9,10: Deferred #11: Deferred #12: Tongue midline SENSATION: Sensation to touch and pinprick is fine MOTOR: Normal tone in the upper and lower extremity. Normal muscle bulk. No fasciculations. No abnormal movements or posturing. He moves the left arm, and slightly the left leg. He does not moves the right arm than leg REFLEXES: Deep tendon reflexes are symmetrical. Upgoing toes in the right foot CEREBELLAR/COORDINATION: Deferred GAIT/STATION: deferred. Labs/Diagnostic Data Labs Test 09/08/25 18:29 09/08/25 16:19 09/08/25 15:22 09/08/25 10:20 Range/Units POC Glucose 115 H 70-106 mg/dl Phosphorus Level 4.3 2.4-5.1 mg/dL Magnesium Level 2.4 1.6-2.6 mg/dL Triglycerides Level 122 < 150 mg/dL Blood Gas Specimen Type Arterial Blood Gas Sample Site Left radial Blood Gas Patient Temperature 37.0 Arterial Blood Date Drawn [id number] Arterial Blood pH 7.436 7.350-7.450 Arterial Blood Partial Pressure CO2 33.7 L 35.0-48.0 mmHg Arterial Blood Partial Pressure O2 76.2 L 83.0-108.0 mmHg Arterial Blood HCO3 22.2 21.0-28.0 mmol/L Arterial Blood Oxygen Saturation 95.3 94.0-98.0 % Arterial Blood Base Excess -1.2 -2.0-3.0 mmol/L Arterial Blood Oxyhemoglobin 93.6 L 94.0-98.0 % Arterial Blood Carboxyhemoglobin 1.2 0.5-1.5 % Arterial Blood Methemoglobin 0.6 0.0-1.5 % Bernard Test Yes Blood Gas Total Hemoglobin 16.00 13.5-17.5 g/dL Blood Gas Liter Flow 4.00 Blood Gas Modality Nasal cannula FiO2 % 36.0 Urine Color Light-orange Yellow Urine Clarity Turbid H Clear Urine pH 5.5 5.0-9.0 Urine Specific [place] 1.011 1.001-1.035 Urine Protein Negative Negative Urine Ketones Negative Negative Urine Blood 1+ H Negative /uL Urine Nitrite Negative Negative Urine Bilirubin Negative Negative Urine Urobilinogen Normal Negative mg/dL Urine Leukocyte Esterase 3+ Negative /uL Urine RBC 4 0 - 3 /hpf Urine WBC Clumps Present None Seen /hpf Urine Microscopic WBC 54 H 0-3 /HPF Urine Squamous Epithelial Cells None seen <5 /hpf Urine Bacteria None seen None Seen /hpf Urine Yeast (Budding) Occasional None Seen /hpf Urine Glucose Normal Normal mg/dL Test 09/07/25 06:25 09/06/25 13:01 Range/Units White Blood Count 16.6 H 4.4-10.8 10^3/uL Red Blood Count 4.91 4.5-5.90 10^6/uL Hemoglobin 14.9 13.5-17.5 g/dL Hematocrit 45.5 41.0-53.0 % Mean Corpuscular Volume 92.8 80.0-100.0 fL Mean Corpuscular Hemoglobin 30.4 28.0-32.0 pg Mean Corpuscular Hemoglobin Concent 32.8 32.0-36.0 g/dL Red Cell Distribution Width 14.8 H 11.8-14.3 % Platelet Count 326 140-450 10^3/uL Mean Platelet Volume 11.1 H 6.9-10.8 fL Neutrophils (%) (Auto) 78.9 37.0-80.0 % Lymphocytes (%) (Auto) 10.0 10.0-50.0 % Monocytes (%) (Auto) 9.7 0.0-12.0 % Eosinophils (%) (Auto) 1.3 0.0-7.0 % Basophils (%) (Auto) 0.1 0.0-2.0 % Neutrophils # (Auto) 13.1 H 1.6-8.6 10 ^3/uL Lymphocytes # (Auto) 1.7 0.4-5.4 10 ^3/uL Monocytes # (Auto) 1.6 H 0-1.3 10 ^3/uL Eosinophils # (Auto) 0.2 0-0.8 10 ^3/uL Basophils # (Auto) 0 0-0.2 10 ^3/uL Nucleated Red Blood Cells 0.0 % Sodium Level 148 H 136-145 mmol/L Potassium Level 4.0 3.5-5.1 mmol/L Chloride Level 111 H 98-107 mmol/L Carbon Dioxide Level 27 20-31 mmol/L Anion Gap 10 5-15 Blood Urea Nitrogen 40 H 9-23 mg/dL Creatinine 1.99 H 0.700-1.30 mg/dL Glomerular Filtration Rate Calc 33 >90 mL/min BUN/Creatinine Ratio 20.1 H 10.0-20.0 Serum Glucose 157 H 74-106 mg/dL Calcium Level 8.4 L 8.7-10.4 mg/dL Total Bilirubin 0.7 0.2-1.0 mg/dL Aspartate Amino Transferase (AST) 16 13-40 U/L Alanine Aminotransferase (ALT) < 9 7-40 U/L Alkaline Phosphatase 60 46-116 U/L Total Protein 6.0 5.7-8.2 g/dL Albumin 3.1 L 3.2-4.8 g/dL Troponin I High Sensitivity 104 *H </=54 ng/L Assessment 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 Although this document has been carefully reviewed, there may still be some phonetic and typographical errors. These areas are purely typographical due to imperfections of the software programs, and do not reflect any compromise in the patient's medical care. Plan discussed with: Other ELLA MURDOCK MD Sep 08, 2025 22:45
--- NOTE | 2025-09-08 23:27 | DVHINCON2 ---
Date of service: Sep 08, 2025 Referring Physician Myrna Reason for Consultation Elevated troponin History of Present Illness This is a 84 year old male with PMH of dementia, HLD, and HTN who was brought in by EMS following an unwitnessed fall last night. According to EMS, the patient was found on the floor next to his bed at the [facility] facility. A limited history was obtained because of his symptoms and cognitive state. Chest x-ray shows bibasilar airspace disease. Pelvic x-ray is WNL. CT head shows no evidence of acute intracranial abnormality. 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 Troponin 125 > 116 > 104. Patient was admitted to the hospital. I am asked to consult on this patient. Family History: Breast cancer in mother G8 MOTHER, Onset:50's - 60 Allergies: Coded Allergies: Iodine (Verified Allergy, Unknown, 08/29/25) Penicillins (Verified Allergy, Unknown, 07/19/18) Home Meds Active Scripts Levofloxacin Hemihydrate (LEVOFLOXACIN) 500 Mg Tab, 1 TAB PO DAILY, #7 TAB Prov:ERICA ALVAREZ MD 10/15/24 Acetaminophen (Acetaminophen) 500 Mg Tab, 500 MG PO Q4HP PRN, #30 TAB Prov:REMEDIOS NIXON PAC 02/24/24 Cephalexin (KEFLEX CAPSULE) 250 Mg Cp, 1 CAP PO QID for 7 Days, #28 CAP Prov:REMEDIOS NIXON PAC 02/24/24 Yeast (S. Boulardii)(S. Cerevi (Florastor) 250 Mg Cap, 250 MG PO DAILY, #7 CAP Prov:IRA TOMAS MD 07/21/18 Levofloxacin (Levaquin) 500 Mg Tab, 500 MG PO DAILY, #5 TAB Prov:IRA TOMAS MD 07/21/18 Reported Medications Felodipine (Felodipine Er) 10 Mg Tab, 10 MG PO DAILY for 30 Days, MG 07/20/18 Losartan Potassium (Losartan Potassium) 100 Mg Tab, 1 TAB PO DAILY, #30 TAB 5 Refills 07/20/18 Donepezil Hydrochloride (Aricept) 10 Mg Tab, 10 MG PO DAILY, TAB 07/20/18 Pravastatin Sodium (PRAVACHOL TABLET) 20 Mg Tb, 2 TAB PO QHSP, #90 TAB 1 Refill 07/20/18 Quetiapine Fumerate (Seroquel) 25 Mg Tab, 25 MG PO QHSP for 30 Days, MG 07/20/18 Current Medications Current Medications Medications (Trade) Dose Ordered Sig/Abilio Route PRN Reason Start Time Stop Time Status Last Admin Amino Acids 0 ml @ 0 mls/hr PER PHARMACY IV 09/08/25 15:00 Diagnostic Test (Pha) (Accu-Chek Comfort Curve T) 1 strip Q6HR 09/08/25 18:00 09/08/25 18:00 Insulin Human Regular (InsuLIN R) FOLLOW SLIDING SCALE Q6HR SC 09/08/25 18:00 Dextrose 50 ml UD IV 09/08/25 15:30 Amino Acids/ Electrolytes/ Dextrose 1,000 ml @ 42 mls/hr DAILY@2200 IV 09/08/25 22:00 09/08/25 21:56 Review of Systems Unable to review as patient is altered. Vital Signs Vital Signs Date Time Temp Pulse Resp B/P (MAP) Pulse Ox O2 Delivery O2 Flow Rate FiO2 09/08/25 20:00 90 20 97 Nasal Cannula* 4 36 09/08/25 16:33 99.8 135/82 (99) 99.8 Physical Exam GENERAL: Altered. EYES: PERRL, EOMI. Anicteric. HENT: Moist mucous membranes. LUNGS: Clear to auscultation bilaterally. CARDIOVASCULAR: Irregular rate and rhythm. ABDOMEN: Soft, non-tender and non-distended. EXTREMITIES: No edema. SKIN: Warm, dry. Labs/Diagnostic Data Labs Test 09/08/25 18:29 09/08/25 16:19 09/08/25 15:22 09/08/25 10:20 Range/Units POC Glucose 115 H 70-106 mg/dl Phosphorus Level 4.3 2.4-5.1 mg/dL Magnesium Level 2.4 1.6-2.6 mg/dL Triglycerides Level 122 < 150 mg/dL Blood Gas Specimen Type Arterial Blood Gas Sample Site Left radial Blood Gas Patient Temperature 37.0 Arterial Blood Date Drawn [id number] Arterial Blood pH 7.436 7.350-7.450 Arterial Blood Partial Pressure CO2 33.7 L 35.0-48.0 mmHg Arterial Blood Partial Pressure O2 76.2 L 83.0-108.0 mmHg Arterial Blood HCO3 22.2 21.0-28.0 mmol/L Arterial Blood Oxygen Saturation 95.3 94.0-98.0 % Arterial Blood Base Excess -1.2 -2.0-3.0 mmol/L Arterial Blood Oxyhemoglobin 93.6 L 94.0-98.0 % Arterial Blood Carboxyhemoglobin 1.2 0.5-1.5 % Arterial Blood Methemoglobin 0.6 0.0-1.5 % Bernard Test Yes Blood Gas Total Hemoglobin 16.00 13.5-17.5 g/dL Blood Gas Liter Flow 4.00 Blood Gas Modality Nasal cannula FiO2 % 36.0 Urine Color Light-orange Yellow Urine Clarity Turbid H Clear Urine pH 5.5 5.0-9.0 Urine Specific [place] 1.011 1.001-1.035 Urine Protein Negative Negative Urine Ketones Negative Negative Urine Blood 1+ H Negative /uL Urine Nitrite Negative Negative Urine Bilirubin Negative Negative Urine Urobilinogen Normal Negative mg/dL Urine Leukocyte Esterase 3+ Negative /uL Urine RBC 4 0 - 3 /hpf Urine WBC Clumps Present None Seen /hpf Urine Microscopic WBC 54 H 0-3 /HPF Urine Squamous Epithelial Cells None seen <5 /hpf Urine Bacteria None seen None Seen /hpf Urine Yeast (Budding) Occasional None Seen /hpf Urine Glucose Normal Normal mg/dL Test 09/07/25 06:25 09/06/25 13:01 Range/Units White Blood Count 16.6 H 4.4-10.8 10^3/uL Red Blood Count 4.91 4.5-5.90 10^6/uL Hemoglobin 14.9 13.5-17.5 g/dL Hematocrit 45.5 41.0-53.0 % Mean Corpuscular Volume 92.8 80.0-100.0 fL Mean Corpuscular Hemoglobin 30.4 28.0-32.0 pg Mean Corpuscular Hemoglobin Concent 32.8 32.0-36.0 g/dL Red Cell Distribution Width 14.8 H 11.8-14.3 % Platelet Count 326 140-450 10^3/uL Mean Platelet Volume 11.1 H 6.9-10.8 fL Neutrophils (%) (Auto) 78.9 37.0-80.0 % Lymphocytes (%) (Auto) 10.0 10.0-50.0 % Monocytes (%) (Auto) 9.7 0.0-12.0 % Eosinophils (%) (Auto) 1.3 0.0-7.0 % Basophils (%) (Auto) 0.1 0.0-2.0 % Neutrophils # (Auto) 13.1 H 1.6-8.6 10 ^3/uL Lymphocytes # (Auto) 1.7 0.4-5.4 10 ^3/uL Monocytes # (Auto) 1.6 H 0-1.3 10 ^3/uL Eosinophils # (Auto) 0.2 0-0.8 10 ^3/uL Basophils # (Auto) 0 0-0.2 10 ^3/uL Nucleated Red Blood Cells 0.0 % Sodium Level 148 H 136-145 mmol/L Potassium Level 4.0 3.5-5.1 mmol/L Chloride Level 111 H 98-107 mmol/L Carbon Dioxide Level 27 20-31 mmol/L Anion Gap 10 5-15 Blood Urea Nitrogen 40 H 9-23 mg/dL Creatinine 1.99 H 0.700-1.30 mg/dL Glomerular Filtration Rate Calc 33 >90 mL/min BUN/Creatinine Ratio 20.1 H 10.0-20.0 Serum Glucose 157 H 74-106 mg/dL Calcium Level 8.4 L 8.7-10.4 mg/dL Total Bilirubin 0.7 0.2-1.0 mg/dL Aspartate Amino Transferase (AST) 16 13-40 U/L Alanine Aminotransferase (ALT) < 9 7-40 U/L Alkaline Phosphatase 60 46-116 U/L Total Protein 6.0 5.7-8.2 g/dL Albumin 3.1 L 3.2-4.8 g/dL Troponin I High Sensitivity 104 *H </=54 ng/L Assessment Paroxysmal atrial fibrillation. Metabolic encephalopathy. Elevated troponin. Dementia. HLD. HTN. History of TIA. Plan/Recommendation I agree with your ongoing assessment and care of plan. Morphine and Churdan for pain management. DVT prophylactics. IV antibiotics as ordered. Nitro SL. Additional plan as per the hospital course. A total of 45 minutes was spent reviewing the patient record, examining the patient, making a diagnostic and therapeutic plan, discussing this plan with medical personnel, following up on diagnostic studies and following the patient for clinical stability excluding any and all procedures. At least 50% of this time was spent in direct, [id number] contact. Plan discussed with: BLAINE Boudreaux MD Sep 08, 2025 23:27
[2025-09-08] MEDS: ATORVASTATIN 20 MG TAB PO ONE (23:30)
[2025-09-09] VITALS (8 sets, daily range): BP systolic 110–153; BP diastolic 44–91; PULSE 50–96; RESP 15–20; TEMP 97.7–98.6; O2SAT 93–98
--- NOTE | 2025-09-09 00:28 | DVH ---
Carotid Duplex Clinical History: CVA Comparison: MRI BRAIN HEAD WO CONTRAST on DOS: 09/08/25, CT HEAD WITHOUT CONTRAST on DOS: 09/06/25, CT CERVICAL WITHOUT CONTRAST on DOS: 02/23/24, CT HEAD WITHOUT CONTRAST on DOS: 02/23/24 Technique: Duplex Doppler evaluation of the extracranial carotid and vertebral arteries including color Doppler and spectral/pulsed waveform analysis was performed. Findings: RIGHT SIDE: The peak systolic velocities are 86 cm/s in the CCA, 0 cm/s in the ICA. The ICA/CCA ratio is 0. The external carotid artery is patent with peak systolic velocity of 234 cm/s proximally. There is appropriate antegrade flow in the right vertebral artery. LEFT SIDE: The peak systolic velocities are 80 cm/s in the CCA, 0 cm/s in the ICA. The ICA/CCA ratio is 0. The external carotid artery is patent with peak systolic velocity of 118 cm/s proximally. There is appropriate antegrade flow in the left vertebral artery. IMPRESSION: No appreciable flow within either ICA suggesting either occlusion or near occlusion. Reference: Radiology 2003; 229:340-346 Normal ICA PSV is <125 cm/sec and no plaque or intimal thickening is visible sonographically addition al criteria include ICA/CCA PSV ratio <2.0 and ICA EDV <40 cm/sec <50% ICA stenosis ICA PSV is <125 cm/sec and plaque or intimal thickening is visible sonographically additional criteria include ICA/CCA PSV ratio <2.0 and ICA EDV <40 cm/sec 50-69% ICA stenosis ICA PSV is 125-230 cm/sec and plaque is visible sonographically additional criter ia include ICA/CCA PSV ratio of 2.0-4.0 and ICA EDV of 40-100 cm/sec 70% ICA stenosis but less than near occlusion ICA PSV is >230 cm/sec and visible plaque and luminal narrowing are seen at samano-scale and color Doppler ultrasound (the higher the Doppler parameters lie above the threshold of 230 cm/sec, the greater the likelihood of severe disease) additional criteria include ICA/CCA PSV ratio >4 and ICA EDV >100 cm/sec
[2025-09-09 00:54] LABS: Free T4 (Free Thyroxine) 1.18 ng/dL (0.89-1.76)
[2025-09-09 02:18] LABS: Triglycerides 114 mg/dL (< 150)
[2025-09-09 02:20] LABS: Cholesterol 136 mg/dL (< 200); HDL Cholesterol 33 mg/dL (40-59)
[2025-09-09 07:41] LABS: Alanine Aminotransferase 14 U/L (7-40); Alkaline Phosphatase 60 U/L (46-116); Anion Gap 12 (5-15); BUN/Creatinine Ratio 20.7 (10.0-20.0); Carbon Dioxide 27 mmol/L (20-31); Potassium 4.4 mmol/L (3.5-5.1)
[2025-09-09 07:42] LABS: Magnesium 2.3 mg/dL (1.6-2.6); Total Protein 6.4 g/dL (5.7-8.2)
[2025-09-09 07:43] LABS: Bilirubin, Total 0.7 mg/dL (0.2-1.0)
[2025-09-09 07:44] LABS: Albumin 3.1 g/dL (3.2-4.8); Blood Urea Nitrogen 29 mg/dL (9-23); Calcium 8.4 mg/dL (8.7-10.4); Chloride 110 mmol/L (98-107); Glucose 143 mg/dL (74-106); Sodium 149 mmol/L (136-145)
--- NOTE | 2025-09-09 07:49 | DVHINCON2 ---
Date of service: Sep 09, 2025 Referring Physician HOSPITALIST Reason for Consultation Urinary retention Cosme catheter in situ History of Present Illness 84 y.o male with PMHx of dementia, HLD, and HTN, presents to the ED via EMS following an unwitnessed fall on the night prior to admission. According to EMS, the patient was found on the floor next to his bed at the [facility] care facility. The patient is currently disoriented, but his baseline mental status is difficult to ascertain due to his known dementia. A limited history was obtained because of his symptoms and cognitive state. Chief Complaint: Fall Injury Primary Care Provider: DR. FRAGOSO Reviewed notes: Nurses Notes, Mammography Technologist Notes, Medications, Allergies Allergies: Coded Allergies: Iodine (Verified Allergy, Unknown, 08/29/25) Penicillins (Verified Allergy, Unknown, 07/19/18) Home Meds Active Scripts Levofloxacin Hemihydrate (LEVOFLOXACIN) 500 Mg Tab, 1 TAB PO DAILY, #7 TAB Prov:ERICA ALVAREZ MD 10/15/24 Acetaminophen (Acetaminophen) 500 Mg Tab, 500 MG PO Q4HP PRN, #30 TAB Prov:REMEDIOS NIXON PAC 02/24/24 Cephalexin (KEFLEX CAPSULE) 250 Mg Cp, 1 CAP PO QID for 7 Days, #28 CAP Prov:REMEDIOS NIXON PAC 02/24/24 Yeast (S. Boulardii)(S. Cerevi (Florastor) 250 Mg Cap, 250 MG PO DAILY, #7 CAP Prov:IRA TOMAS MD 07/21/18 Levofloxacin (Levaquin) 500 Mg Tab, 500 MG PO DAILY, #5 TAB Prov:IRA TOMAS MD 07/21/18 Reported Medications Felodipine (Felodipine Er) 10 Mg Tab, 10 MG PO DAILY for 30 Days, MG 07/20/18 Losartan Potassium (Losartan Potassium) 100 Mg Tab, 1 TAB PO DAILY, #30 TAB 5 Refills 07/20/18 Donepezil Hydrochloride (Aricept) 10 Mg Tab, 10 MG PO DAILY, TAB 07/20/18 Pravastatin Sodium (PRAVACHOL TABLET) 20 Mg Tb, 2 TAB PO QHSP, #90 TAB 1 Refill 07/20/18 Quetiapine Fumerate (Seroquel) 25 Mg Tab, 25 MG PO QHSP for 30 Days, MG 07/20/18 Information Source: Emergency Med Personnel Mode of Arrival: EMS Severity: Moderate Timing: Hours Duration: Since onset Mechanism: Fall Associated signs and symtoms: Other Past Medical History Dementia, High Lipids, HTN, TIA Past Surgical History Hernia Repair Family History: Breast cancer in mother G8 MOTHER, Onset:50's - 60 Allergies: Coded Allergies: Iodine (Verified Allergy, Unknown, 08/29/25) Penicillins (Verified Allergy, Unknown, 07/19/18) Home Meds Active Scripts Levofloxacin Hemihydrate (LEVOFLOXACIN) 500 Mg Tab, 1 TAB PO DAILY, #7 TAB Prov:ERICA ALVAREZ MD 10/15/24 Acetaminophen (Acetaminophen) 500 Mg Tab, 500 MG PO Q4HP PRN, #30 TAB Prov:REMEDIOS NIXON PAC 02/24/24 Cephalexin (KEFLEX CAPSULE) 250 Mg Cp, 1 CAP PO QID for 7 Days, #28 CAP Prov:REMEDIOS NIXON PAC 02/24/24 Yeast (S. Boulardii)(S. Cerevi (Florastor) 250 Mg Cap, 250 MG PO DAILY, #7 CAP Prov:IRA TOMAS MD 07/21/18 Levofloxacin (Levaquin) 500 Mg Tab, 500 MG PO DAILY, #5 TAB Prov:IRA TOMAS MD 07/21/18 Reported Medications Felodipine (Felodipine Er) 10 Mg Tab, 10 MG PO DAILY for 30 Days, MG 07/20/18 Losartan Potassium (Losartan Potassium) 100 Mg Tab, 1 TAB PO DAILY, #30 TAB 5 Refills 07/20/18 Donepezil Hydrochloride (Aricept) 10 Mg Tab, 10 MG PO DAILY, TAB 07/20/18 Pravastatin Sodium (PRAVACHOL TABLET) 20 Mg Tb, 2 TAB PO QHSP, #90 TAB 1 Refill 07/20/18 Quetiapine Fumerate (Seroquel) 25 Mg Tab, 25 MG PO QHSP for 30 Days, MG 07/20/18 Current Medications Current Medications Medications (Trade) Dose Ordered Sig/Abilio Route PRN Reason Start Time Stop Time Status Last Admin Amino Acids 0 ml @ 0 mls/hr PER PHARMACY IV 09/08/25 15:00 Diagnostic Test (Pha) (Accu-Chek Comfort Curve T) 1 strip Q6HR 09/08/25 18:00 09/09/25 05:53 Insulin Human Regular (InsuLIN R) FOLLOW SLIDING SCALE Q6HR SC 09/08/25 18:00 09/09/25 06:14 Dextrose 50 ml UD IV 09/08/25 15:30 Amino Acids/ Electrolytes/ Dextrose 1,000 ml @ 42 mls/hr DAILY@2200 IV 09/08/25 22:00 09/08/25 21:56 Aspirin 81 mg DAILY PO 09/09/25 10:00 Atorvastatin Calcium (Lipitor) 20 mg HS PO 09/09/25 22:00 Review of Systems Unable to Obtain due to: Dementia Vital Signs Vital Signs Date Time Temp Pulse Resp B/P (MAP) Pulse Ox O2 Delivery O2 Flow Rate FiO2 09/09/25 05:00 98.3 50 15 122/67 (85) 95 98.3 09/08/25 20:00 Nasal Cannula* 4 36 Physical Exam General Appearance: Moderate Distress HEENT: Normal ENT Inspection, Pharynx Normal, TMs Normal Neck: Full Range of Motion, Non-Tender, Normal, Normal Inspection Respiratory: Chest Non-Tender, Lungs Clear, No Accessory Muscle Use, No Respiratory Distress, Normal Breath Sounds Cardiovascular: Irregular, No Edema, No JVD, No Murmur, No Gallop, Normal Peripheral Pulses Breast Exam: Deferred Gastrointestinal: No Organomegaly, Non Tender, No Pulsatile Mass, Normal Bowel Sounds, Soft Genitalia: Cosme catheter in place Pelvic: Deferred Rectal: Deferred Extremities: No calf tenderness, No pedal edema Musculoskeletal : Apperance: Normal Neurologic: Disoriented Cerebellar Function: NOT DONE Reflexes: NOT DONE Skin: Dry, Normal Color, Warm Peripheral Pulses: 3+ Radial (R), 3+ Radial (L) Lymphatic: No Adenopathy Labs/Diagnostic Data Labs Test 09/09/25 05:41 09/09/25 05:22 09/09/25 00:12 09/08/25 15:22 Range/Units Sodium Level 149 H 136-145 mmol/L Potassium Level 4.4 3.5-5.1 mmol/L Chloride Level 110 H 98-107 mmol/L Carbon Dioxide Level 27 20-31 mmol/L Anion Gap 12 5-15 Blood Urea Nitrogen 29 #H 9-23 mg/dL Creatinine 1.40 H 0.700-1.30 mg/dL Glomerular Filtration Rate Calc 50 >90 mL/min BUN/Creatinine Ratio 20.7 H 10.0-20.0 Serum Glucose 143 H 74-106 mg/dL Calcium Level 8.4 L 8.7-10.4 mg/dL Phosphorus Level 2.9 2.4-5.1 mg/dL Magnesium Level 2.3 1.6-2.6 mg/dL Total Bilirubin 0.7 0.2-1.0 mg/dL Aspartate Amino Transferase (AST) 26 13-40 U/L Alanine Aminotransferase (ALT) 14 7-40 U/L Alkaline Phosphatase 60 46-116 U/L Total Protein 6.4 5.7-8.2 g/dL Albumin 3.1 L 3.2-4.8 g/dL POC Glucose 158 H 70-106 mg/dl Triglycerides Level 114 < 150 mg/dL Cholesterol Level 136 < 200 mg/dL LDL Cholesterol 85 < 100 mg/dL HDL Cholesterol 33 L 40-59 mg/dL Vitamin B12 Level 320 211-911 pg/mL Folic Acid 7.59 >5.38 ng/mL Thyroid Stimulating Hormone (TSH) 1.97 0.55-4.78 uIU/mL Free Thyroxine (T4) Calculated 1.18 0.89-1.76 ng/dL Blood Gas Specimen Type Arterial Blood Gas Sample Site Left radial Blood Gas Patient Temperature 37.0 Arterial Blood Date Drawn [id number] Arterial Blood pH 7.436 7.350-7.450 Arterial Blood Partial Pressure CO2 33.7 L 35.0-48.0 mmHg Arterial Blood Partial Pressure O2 76.2 L 83.0-108.0 mmHg Arterial Blood HCO3 22.2 21.0-28.0 mmol/L Arterial Blood Oxygen Saturation 95.3 94.0-98.0 % Arterial Blood Base Excess -1.2 -2.0-3.0 mmol/L Arterial Blood Oxyhemoglobin 93.6 L 94.0-98.0 % Arterial Blood Carboxyhemoglobin 1.2 0.5-1.5 % Arterial Blood Methemoglobin 0.6 0.0-1.5 % Bernard Test Yes Blood Gas Total Hemoglobin 16.00 13.5-17.5 g/dL Blood Gas Liter Flow 4.00 Blood Gas Modality Nasal cannula FiO2 % 36.0 Test 09/08/25 10:20 09/07/25 06:25 09/06/25 13:01 Range/Units Urine Color Light-orange Yellow Urine Clarity Turbid H Clear Urine pH 5.5 5.0-9.0 Urine Specific [place] 1.011 1.001-1.035 Urine Protein Negative Negative Urine Ketones Negative Negative Urine Blood 1+ H Negative /uL Urine Nitrite Negative Negative Urine Bilirubin Negative Negative Urine Urobilinogen Normal Negative mg/dL Urine Leukocyte Esterase 3+ Negative /uL Urine RBC 4 0 - 3 /hpf Urine WBC Clumps Present None Seen /hpf Urine Microscopic WBC 54 H 0-3 /HPF Urine Squamous Epithelial Cells None seen <5 /hpf Urine Bacteria None seen None Seen /hpf Urine Yeast (Budding) Occasional None Seen /hpf Urine Glucose Normal Normal mg/dL White Blood Count 16.6 H 4.4-10.8 10^3/uL Red Blood Count 4.91 4.5-5.90 10^6/uL Hemoglobin 14.9 13.5-17.5 g/dL Hematocrit 45.5 41.0-53.0 % Mean Corpuscular Volume 92.8 80.0-100.0 fL Mean Corpuscular Hemoglobin 30.4 28.0-32.0 pg Mean Corpuscular Hemoglobin Concent 32.8 32.0-36.0 g/dL Red Cell Distribution Width 14.8 H 11.8-14.3 % Platelet Count 326 140-450 10^3/uL Mean Platelet Volume 11.1 H 6.9-10.8 fL Neutrophils (%) (Auto) 78.9 37.0-80.0 % Lymphocytes (%) (Auto) 10.0 10.0-50.0 % Monocytes (%) (Auto) 9.7 0.0-12.0 % Eosinophils (%) (Auto) 1.3 0.0-7.0 % Basophils (%) (Auto) 0.1 0.0-2.0 % Neutrophils # (Auto) 13.1 H 1.6-8.6 10 ^3/uL Lymphocytes # (Auto) 1.7 0.4-5.4 10 ^3/uL Monocytes # (Auto) 1.6 H 0-1.3 10 ^3/uL Eosinophils # (Auto) 0.2 0-0.8 10 ^3/uL Basophils # (Auto) 0 0-0.2 10 ^3/uL Nucleated Red Blood Cells 0.0 % Troponin I High Sensitivity 104 *H </=54 ng/L Assessment Urinary retention Microscopic hematuria BPH likely Plan/Recommendation CT scan abdomen pelvis noncontrast PSA level Maintain indwelling catheter with monthly exchanges Outpatient cystoscopy Plan discussed with: Other FELTON DUBOIS MD Sep 09, 2025 07:49
--- NOTE | 2025-09-09 09:21 | DVHPN2 ---
Progress Note - Dictate Date Seen: Sep 09, 2025 Medical Necessity Reason Pt with a Central, PICC or Fol: No Subjective Mr. Rich is a 84 years old gentleman with a history of hypertension, dyslipidemia, TIA, dementia, the patient was brought to the [facility] on 09/15/2025 with a chief complaint of fall, I have seen and examined the patient, I have talked to his nurse, and other medical staff, he is better today, he is able to vocalize slightly, he may only oriented to himself, he follows verbal commands a little bit According to Fatuma, his [id number] Humira his brother 55 years ago, he has had progressive memory difficulty since 2018 or earlier, long-term memory has been affected, he does not remember all his family members, he does not remember while his brothers, and he does not remember Fatuma sometimes. He is in the dementia facility. His walking is fine No family history of dementia [phone] Urinalysis, 09/08/2025: WBC: 54, urine leukocyte esterase: 3+ WBC/HB/PLT/MCV, 09/07/2025: 16.6/40.9/326/92.8 Na 09/06/2025: 144, 09/07/2025: 148, 09/09/2025: 149 BUN/CR, 09/06/2025: 35/1.91, 09/07/2025: 40/1.99, 09/09/2025: 29/1.4 GFR, 09/06/2025: 33, 09/07/2025: 33 TG/HDL/LDL/HDL, 09/09/2025: 114/136/85/33 Vitamin B12, 09/09/2025: 320 Folic acid, 09/09/2025: 7.59 TSH, 09/09/2025: 1.97 FT4 09/09/2025: 1.18 Extremity venous study, 09/08/2025: No flow noted in the right cephalic vein and no compressibility consistent with thrombosis. Carotid Doppler, 09/08/2025: No appreciable flow within either ICA suggesting either occlusion or near occlusion. MRI head, 09/08/2025: Limited examination. Only DWI and axial T2 images submitted for review. Recommend repeat brain MRI when patient is able to tolerate. Numerous foci diffusion restriction within the bilateral jaffe radiata and subcortical regions [id number], consistent with acute infarction in the watershed distribution bilaterally. Correlate for thromboembolic, vasospastic etiology vital signs Vital Sign Date Time Temp Pulse Resp B/P (MAP) Pulse Ox O2 Delivery O2 Flow Rate FiO2 09/09/25 08:46 98.6 83 18 130/44 (72) 96 98.6 09/08/25 20:00 Nasal Cannula* 4 36 Total Intake and Output 09/08/25 09/08/25 09/09/25 15:00 23:00 07:00 Intake Total 530 ml 240 ml Output Total 1600 ml 1600 ml Balance 530 ml -1360 ml -1600 ml medications Current Medications Medications Dose Ordered Sig/Abilio Route Start Time Stop Time Status Last Admin Dose Admin Acetaminophen/ Hydrocodone Bitart 1 tab Q4HP PRN PO 09/06/25 13:00 Ondansetron HCl 4 mg Q4HP PRN IV 09/06/25 13:00 Acetaminophen 650 mg Q6HP PRN PO 09/06/25 13:00 Morphine Sulfate 2 mg Q4HPRN PRN IV 09/06/25 13:00 Enoxaparin Sodium 40 mg DAILY SC 09/06/25 13:00 09/08/25 11:15 40 MG Nitroglycerin 0.4 mg Q5MINP PRN SL 09/06/25 13:00 Morphine Sulfate 2 mg Q30M PRN IV 09/06/25 13:00 Ertapenem 1 gm/ Sodium Chloride 50 ml @ 100 mls/hr DAILY IV 09/07/25 10:00 09/08/25 11:15 100 MLS/HR Amino Acids 0 ml @ 0 mls/hr PER PHARMACY IV 09/08/25 15:00 Diagnostic Test (Pha) 1 strip Q6HR 09/08/25 18:00 09/09/25 05:53 1 STRIP Insulin Human Regular FOLLOW SLIDING SCALE Q6HR SC 09/08/25 18:00 09/09/25 06:14 2 UNITS Dextrose 50 ml UD IV 09/08/25 15:30 Amino Acids/ Electrolytes/ Dextrose 1,000 ml @ 42 mls/hr DAILY@2200 IV 09/08/25 22:00 09/08/25 21:56 42 MLS/HR Aspirin 81 mg DAILY PO 09/09/25 10:00 Atorvastatin Calcium 20 mg HS PO 09/09/25 22:00 objective General: the patient is well developed and nourished. No acute distress. MENTAL STATUS: Subjective SPEECH, LANGUAGE, HIGHER CORTICAL FUNCTION: He speaks with very weak voice CRANIAL NERVES: Pupils are equal, round and reactive. Gait eye movement. Facial sensation okay in all three divisions bilaterally. Mandibular strength intact. Facial muscles symmetrical and strength intact. SENSATION: Sensation to touch and pinprick is fine MOTOR: Normal tone in the upper and lower extremity. Normal muscle bulk. No fasciculations. No abnormal movements or posturing. Minimal movement in left arm, both feet noticed REFLEXES: Deep tendon reflexes are symmetrical. 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 DVT prophylaxis/Lovenox Need more history More recommendation per clinical course This medical document was created using an electronic medical record system with [employer] dictation system. Although this document has been carefully reviewed, there may still be some phonetic and typographical errors. These areas are purely typographical due to imperfections of the software programs, and do not reflect any compromise in the patient's medical care. Prognosis Prognosis: Poor Dietary Evaluation Review Comments: 1) Initiate Ensure High Protein bid 2) Initiate MVI @ 1 tb qd 3) Initiate vitamin C @ 500 mg bid and zinc sulfate @ 220 mg qd for 7 days 4) Follow-up with neurology, nephrology, cardiology, and pulmonology 5) Continue to monitor I&O, labs, and skin integrity Expected Outcomes/Goals: 1) appetite and labs to improve 2) wounds to improve 3) f/u in 3-5 days Plan discussed with: Other Total Time (mins): 45 ELLA MURDOCK MD Sep 09, 2025 09:21
[2025-09-09] MEDS: CYANOCOBALAMIN 500 MCG TAB PO SCH (10:00)
--- NOTE | 2025-09-09 10:16 | DVH ---
EXAM DESCRIPTION: CT CT AB PEL WO CON-NO ORAL OR IV CLINICAL HISTORY: hematuria COMPARISON: XY PELVIS AP on DOS: 09/06/25, CT CT AB PEL WO CON-NO ORAL OR IV on DOS: 10/15/24, CT CERVICAL WITHOUT CONTRAST on DOS: 02/23/24 TECHNIQUE: CT abdomen and pelvis without IV contrast was performed. Coronal and sagittal MPR images were generated.CTDI/ DLP = 22.61 / 1500.86 Dose reduction technique with one or more of the following methods was performed: Automated exposure control, adjustment of the mA and/or kV according to patient size, use of iterative reconstruction technique FINDINGS: Lower chest: Bibasilar subsegmental atelectasis. Partially imaged 7 mm nodule in the right upper lobe. Coronary artery disease. Liver: Homogenous in attenuation. Water attenuation cyst.. Biliary: No calcified gallstones. No biliary ductal dilatation. Pancreas: No fat stranding or focal lesion. Spleen: Normal in size.. Adrenal glands: No nodularity. Kidneys: No nephrolithiasis. No hydroureteronephrosis. Water attenuation cysts.. Bladder: Decompressed via Cosme catheter. Thickened bladder wall. Reproductive organs: Prostatomegaly. Bowel: No bowel wall thickening or dilatation. Colonic diverticulosis without evidence of diverticulitis. . Peritoneum: No free fluid. No free air. Vessels: Normal caliber abdominal aorta. Severe atherosclerotic calcifications.. Lymph nodes: No suspicious lymph nodes. Soft tissues: Unremarkable. . Osseous structures: No acute fracture or subluxation. No suspicious osseous lesions. Degenerative changes of the visualized thoracolumbar spine. Unchanged compression deformities at the thoracolumbar junction. IMPRESSION: 1. Thickened urinary bladder wall with prostatomegaly, correlate with urinalysis for cystitis. 2. Partially imaged 7 mm pulmonary nodule in the right upper lobe. Recommend further evaluation dedicated CT chest. 3. Severe atherosclerotic vascular disease. Coronary artery disease.
[2025-09-09] MEDS: ATORVASTATIN 20 MG TAB PO SCH (20:51)
--- NOTE | 2025-09-09 23:57 | DVHPN2 ---
Progress Note - Dictate Date Seen: Sep 09, 2025 Medical Necessity Reason Pt with a Central, PICC or Fol: No Subjective Patient was seen and evaluated in follow up. Patient is confused. Sitter is at bedside. NA 149, BUN 29, WAITER/WAITRESS COCKTAIL LOUNGE 1.40, CA 8.4. CT ABD/PEL shows thickened urinary bladder wall with prostatomegaly, correlate with urinalysis for cystitis. Partially imaged 7 mm pulmonary nodule in the right upper lobe. Severe atherosclerotic vascular disease. Coronary artery disease. Telemetry reviewed. vital signs Vital Sign Date Time Temp Pulse Resp B/P (MAP) Pulse Ox O2 Delivery O2 Flow Rate FiO2 09/09/25 12:40 98.3 70 18 123/67 (85) 97 98.3 09/09/25 08:00 Nasal Cannula* 4 36 Total Intake and Output 09/08/25 09/08/25 09/09/25 15:00 23:00 07:00 Intake Total 530 ml 240 ml Output Total 1600 ml 1600 ml Balance 530 ml -1360 ml -1600 ml medications Current Medications Medications Dose Ordered Sig/Abilio Route Start Time Stop Time Status Last Admin Dose Admin Acetaminophen/ Hydrocodone Bitart 1 tab Q4HP PRN PO 09/06/25 13:00 Ondansetron HCl 4 mg Q4HP PRN IV 09/06/25 13:00 Acetaminophen 650 mg Q6HP PRN PO 09/06/25 13:00 Morphine Sulfate 2 mg Q4HPRN PRN IV 09/06/25 13:00 Enoxaparin Sodium 40 mg DAILY SC 09/06/25 13:00 09/09/25 10:00 40 MG Nitroglycerin 0.4 mg Q5MINP PRN SL 09/06/25 13:00 Morphine Sulfate 2 mg Q30M PRN IV 09/06/25 13:00 Ertapenem 1 gm/ Sodium Chloride 50 ml @ 100 mls/hr DAILY IV 09/07/25 10:00 09/09/25 09:59 100 MLS/HR Amino Acids 0 ml @ 0 mls/hr PER PHARMACY IV 09/08/25 15:00 Diagnostic Test (Pha) 1 strip Q6HR 09/08/25 18:00 09/09/25 12:00 1 STRIP Insulin Human Regular FOLLOW SLIDING SCALE Q6HR SC 09/08/25 18:00 09/09/25 13:03 2 UNITS Dextrose 50 ml UD IV 09/08/25 15:30 Amino Acids/ Electrolytes/ Dextrose 1,000 ml @ 42 mls/hr DAILY@2200 IV 09/08/25 22:00 09/08/25 21:56 42 MLS/HR Aspirin 81 mg DAILY PO 09/09/25 10:00 Atorvastatin Calcium 20 mg HS PO 09/09/25 22:00 Cyanocobalamin 500 mcg DAILY PO 09/09/25 10:00 objective GENERAL: Altered. EYES: PERRL, EOMI. Anicteric. HENT: Moist mucous membranes. LUNGS: Clear to auscultation bilaterally. CARDIOVASCULAR: Irregular rate and rhythm. ABDOMEN: Soft, non-tender and non-distended. EXTREMITIES: No edema. SKIN: Warm, dry. laboratory and microbiology Laboratory Tests 09/09/25 05:41 09/07/25 06:25 Test 09/09/25 05:41 Range/Units Serum Glucose 143 H 74-106 mg/dL Problem List Paroxysmal atrial fibrillation. Metabolic encephalopathy. Elevated troponin. Dementia. HLD. HTN. History of TIA. Assessment/Plan Continued all current supportive medical care. Lipitor. Morphine and [place] for pain management. DVT prophylactics. IV antibiotics as ordered. Nitro SL. Additional plan as per the hospital course. Dietary Evaluation Review Comments: 1) Initiate Ensure High Protein bid 2) Initiate MVI @ 1 tb qd 3) Initiate vitamin C @ 500 mg bid and zinc sulfate @ 220 mg qd for 7 days 4) Follow-up with neurology, nephrology, cardiology, and pulmonology 5) Continue to monitor I&O, labs, and skin integrity Expected Outcomes/Goals: 1) appetite and labs to improve 2) wounds to improve 3) f/u in 3-5 days Plan discussed with: BLAINE Boudreaux MD Sep 09, 2025 16:58
[2025-09-10] VITALS (15 sets, daily range): BP systolic 101–155; BP diastolic 61–85; PULSE 60–110; RESP 16–19; TEMP 97.5–99.3; O2SAT 91–98
[2025-09-10] MEDS: MORPHINE SULFATE INJ 2 MG/ml SYRG IV PRN (05:14)
[2025-09-10 07:15] LABS: Alanine Aminotransferase 30 U/L (7-40); Albumin 3.4 g/dL (3.2-4.8); BUN/Creatinine Ratio 28.4 (10.0-20.0); Bilirubin, Total 0.7 mg/dL (0.2-1.0); Magnesium 2.2 mg/dL (1.6-2.6); Potassium 4.6 mmol/L (3.5-5.1); Total Protein 6.7 g/dL (5.7-8.2)
[2025-09-10 07:17] LABS: Anion Gap 13 (5-15)
[2025-09-10 07:18] LABS: Blood Urea Nitrogen 33 mg/dL (9-23); Calcium 8.7 mg/dL (8.7-10.4); Carbon Dioxide 26 mmol/L (20-31); Chloride 112 mmol/L (98-107); Glucose 158 mg/dL (74-106); Sodium 151 mmol/L (136-145)
[2025-09-10 07:28] LABS: Alkaline Phosphatase 71 U/L (46-116)
[2025-09-10 08:07] LABS: Prostate Specific Antigen 3.2 ng/mL (0.0-4.0)
--- NOTE | 2025-09-10 10:24 | DVHPN2 ---
Progress Note - Dictate Date Seen: Sep 10, 2025 Medical Necessity Reason Pt with a Central, PICC or Fol: No Subjective While is a 84 years old gentleman with a history of hypertension, dyslipidemia, TIA, dementia, the patient was brought to the [facility] on 09/15/2025 with a chief complaint of fall, I have seen and examined the patient, I have talked to his nurse, he is awake, but does not not vocalize, T follows a little bit He only moves the left hand The case was discussed with hand crocheter Urinalysis, 09/08/2025: WBC: 54, urine leukocyte esterase: 3+ WBC/HB/PLT/MCV, 09/07/2025: 16.6/40.9/326/92.8 Na 09/06/2025: 144, 09/07/2025: 148, 09/09/2025: 149 BUN/CR, 09/06/2025: 35/1.91, 09/07/2025: 40/1.99, 09/09/2025: 29/1.4 GFR, 09/06/2025: 33, 09/07/2025: 33 TG/HDL/LDL/HDL, 09/09/2025: 114/136/85/33 Vitamin B12, 09/09/2025: 320 Folic acid, 09/09/2025: 7.59 TSH, 09/09/2025: 1.97 FT4 09/09/2025: 1.18 Extremity venous study, 09/08/2025: No flow noted in the right cephalic vein and no compressibility consistent with thrombosis. Carotid Doppler, 09/08/2025: No appreciable flow within either ICA suggesting either occlusion or near occlusion. MRI head, 09/08/2025: Limited examination. Only DWI and axial T2 images submitted for review. Recommend repeat brain MRI when patient is able to tolerate. Numerous foci diffusion restriction within the bilateral jaffe radiata and subcortical regions [id number], consistent with acute infarction in the watershed distribution bilaterally. Correlate for thromboembolic, vasospastic etiology vital signs Vital Sign Date Time Temp Pulse Resp B/P (MAP) Pulse Ox O2 Delivery O2 Flow Rate FiO2 09/10/25 08:41 99.3 65 19 135/80 (98) 97 99.3 09/09/25 20:00 Nasal Cannula* 4 36 Total Intake and Output 09/09/25 09/09/25 09/10/25 15:00 23:00 07:00 Intake Total 50 ml 0 ml 0 ml Output Total 850 ml 925 ml Balance 50 ml -850 ml -925 ml medications Current Medications Medications Dose Ordered Sig/Abilio Route Start Time Stop Time Status Last Admin Dose Admin Acetaminophen/ Hydrocodone Bitart 1 tab Q4HP PRN PO 09/06/25 13:00 Ondansetron HCl 4 mg Q4HP PRN IV 09/06/25 13:00 Acetaminophen 650 mg Q6HP PRN PO 09/06/25 13:00 Morphine Sulfate 2 mg Q4HPRN PRN IV 09/06/25 13:00 09/10/25 05:14 2 MG Enoxaparin Sodium 40 mg DAILY SC 09/06/25 13:00 09/10/25 09:56 40 MG Nitroglycerin 0.4 mg Q5MINP PRN SL 09/06/25 13:00 Morphine Sulfate 2 mg Q30M PRN IV 09/06/25 13:00 Ertapenem 1 gm/ Sodium Chloride 50 ml @ 100 mls/hr DAILY IV 09/07/25 10:00 09/10/25 09:55 100 MLS/HR Amino Acids 0 ml @ 0 mls/hr PER PHARMACY IV 09/08/25 15:00 Diagnostic Test (Pha) 1 strip Q6HR 09/08/25 18:00 09/10/25 05:17 1 STRIP Insulin Human Regular FOLLOW SLIDING SCALE Q6HR SC 09/08/25 18:00 09/10/25 05:17 4 UNITS Dextrose 50 ml UD IV 09/08/25 15:30 Amino Acids/ Electrolytes/ Dextrose 1,000 ml @ 42 mls/hr DAILY@2200 IV 09/08/25 22:00 09/09/25 22:28 42 MLS/HR Aspirin 81 mg DAILY PO 09/09/25 10:00 Atorvastatin Calcium 20 mg HS PO 09/09/25 22:00 Cyanocobalamin 500 mcg DAILY PO 09/09/25 10:00 objective General: the patient is well developed and nourished. No acute distress. MENTAL STATUS: Subjective SPEECH, LANGUAGE, HIGHER CORTICAL FUNCTION: Subjective CRANIAL NERVES: Pupils are equal, round and reactive. Gait eye movement. Facial sensation okay in all three divisions bilaterally. Mandibular strength intact. Facial muscles symmetrical and strength intact. SENSATION: Sensation to touch and pinprick is fine MOTOR: Normal tone in the upper and lower extremity. Normal muscle bulk. No fasciculations. No abnormal movements or posturing. Minimal movement in left arm, REFLEXES: Deep tendon reflexes are symmetrical. 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 DVT prophylaxis/Lovenox Need more history More recommendation per clinical course This medical document was created using an electronic medical record system with [employer] dictation system. Although this document has been carefully reviewed, there may still be some phonetic and typographical errors. These areas are purely typographical due to imperfections of the software programs, and do not reflect any compromise in the patient's medical care. Prognosis poor Dietary Evaluation Review Comments: 1) Initiate Ensure High Protein bid 2) Initiate MVI @ 1 tb qd 3) Initiate vitamin C @ 500 mg bid and zinc sulfate @ 220 mg qd for 7 days 4) Follow-up with neurology, nephrology, cardiology, and pulmonology 5) Continue to monitor I&O, labs, and skin integrity Expected Outcomes/Goals: 1) appetite and labs to improve 2) wounds to improve 3) f/u in 3-5 days Plan discussed with: Other Total Time (mins): 35 ELLA MURDOCK MD Sep 10, 2025 10:24
--- NOTE | 2025-09-10 12:32 | MEDREC ---
[facility] Intervention Section I [facility] Intervention: Review courses of therapy (Patient has no history of ESBL, UCX has no growth. Please consider d/c ertapenem. If want to emperically cover for UTI, please use ceftriaxone instead) [facility]IN [facility] RESIDENT Sep 10, 2025 12:32
[2025-09-10] MEDS: ALBUTEROL SULF 2.5 MG/0.5ML(0.5%) NEB SOLN NEB PRN (14:30)
--- NOTE | 2025-09-10 15:18 | DVHPN2 ---
Progress Note Date Seen: Sep 09, 2025 Medical Necessity Reason Pt with a Central, PICC or Fol: No Objective vital signs Vital Sign Date Time Temp Pulse Resp B/P (MAP) Pulse Ox O2 Delivery O2 Flow Rate FiO2 09/10/25 14:36 107 18 98 09/10/25 14:30 Nasal Cannula 4.0 09/10/25 14:30 36 09/10/25 13:07 98.2 101/73 98.2 Total Intake and Output 09/09/25 09/09/25 09/10/25 15:00 23:00 07:00 Intake Total 50 ml 0 ml 0 ml Output Total 850 ml 925 ml Balance 50 ml -850 ml -925 ml medications Current Medications Medications Dose Ordered Sig/Abilio Route Start Time Stop Time Status Last Admin Dose Admin Acetaminophen/ Hydrocodone Bitart 1 tab Q4HP PRN PO 09/06/25 13:00 Ondansetron HCl 4 mg Q4HP PRN IV 09/06/25 13:00 Acetaminophen 650 mg Q6HP PRN PO 09/06/25 13:00 Morphine Sulfate 2 mg Q4HPRN PRN IV 09/06/25 13:00 09/10/25 05:14 2 MG Enoxaparin Sodium 40 mg DAILY SC 09/06/25 13:00 09/10/25 09:56 40 MG Nitroglycerin 0.4 mg Q5MINP PRN SL 09/06/25 13:00 Morphine Sulfate 2 mg Q30M PRN IV 09/06/25 13:00 Ertapenem 1 gm/ Sodium Chloride 50 ml @ 100 mls/hr DAILY IV 09/07/25 10:00 09/10/25 09:55 100 MLS/HR Amino Acids 0 ml @ 0 mls/hr PER PHARMACY IV 09/08/25 15:00 Diagnostic Test (Pha) 1 strip Q6HR 09/08/25 18:00 09/10/25 11:20 1 STRIP Insulin Human Regular FOLLOW SLIDING SCALE Q6HR SC 09/08/25 18:00 09/10/25 11:51 4 UNITS Dextrose 50 ml UD IV 09/08/25 15:30 Amino Acids/ Electrolytes/ Dextrose 1,000 ml @ 42 mls/hr DAILY@2200 IV 09/08/25 22:00 09/09/25 22:28 42 MLS/HR Aspirin 81 mg DAILY PO 09/09/25 10:00 Atorvastatin Calcium 20 mg HS PO 09/09/25 22:00 Cyanocobalamin 500 mcg DAILY PO 09/09/25 10:00 Albuterol 2.5 mg Q6HPRN PRN NEB 09/10/25 12:00 09/10/25 14:30 2.5 MG Examination: GENERAL:Normal, HEENT:Normal laboratory and microbiology Laboratory Tests 09/10/25 06:07 09/07/25 06:25 Test 09/10/25 06:07 Range/Units Serum Glucose 158 H 74-106 mg/dL Microbiology Date/Time Source Procedure Growth Status 09/08/25 10:20 Urine - Catheterized Urine Culture - Final Complete Labs and/or images reviewed: Labs reviewed by me, Image(s) reviewed by me Problem List/Assessment/Plan Problem List/Assessment/Plan 84 y.o male with PMHx of dementia, HLD, and HTN, presents to the ED via EMS following an unwitnessed fall last night. According to EMS, the patient was found on the floor next to [facility]. The patient is currently disoriented, but his baseline mental status is difficult to ascertain due to his known dementia. A limited history was obtained because of his symptoms and cognitive state. Atrial fibrillation Metabolic encephalopathy recent CVA recent UTI cxr indicate bibasilar opacities sepsis with suspected PNA dementia mechanical fall, rule out fractures continue with INvance tx for pna further evaluation Plan discussed with: Patient My Orders My Orders Orders - UNRULY SANDHU DO Procedure Category Date Status Time Comprehensive LAB 09/11/25 Verified Metabolic Panel 04:00 Magnesium LAB 09/11/25 Verified 04:00 Phosphorus LAB 09/11/25 Verified 04:00 Clinimix Per Pharmacy [facility] 09/10/25 In Process 09:27 Albuterol Medneb PHA 09/10/25 In Process (Ventolin Medneb) 12:00 * Pipe [employer] And Repairer CONS 09/10/25 Transmitted Consult Azithromycin 500mg/ PHA 09/11/25 Logged 250ml (Zithromax 50 10:00 Dietary Evaluation Review Comments: 1) Initiate Ensure High Protein bid 2) Initiate MVI @ 1 tb qd 3) Initiate vitamin C @ 500 mg bid and zinc sulfate @ 220 mg qd for 7 days 4) Follow-up with neurology, nephrology, cardiology, and pulmonology 5) Continue to monitor I&O, labs, and skin integrity Expected Outcomes/Goals: 1) appetite and labs to improve 2) wounds to improve 3) f/u in 3-5 days UNRULY SANDHU DO Sep 10, 2025 15:18
--- NOTE | 2025-09-10 15:19 | DVHPN2 ---
Progress Note Date Seen: Sep 10, 2025 Medical Necessity Reason Pt with a Central, PICC or Fol: No Objective vital signs Vital Sign Date Time Temp Pulse Resp B/P (MAP) Pulse Ox O2 Delivery O2 Flow Rate FiO2 09/10/25 14:36 107 18 98 09/10/25 14:30 Nasal Cannula 4.0 09/10/25 14:30 36 09/10/25 13:07 98.2 101/73 98.2 Total Intake and Output 09/09/25 09/09/25 09/10/25 15:00 23:00 07:00 Intake Total 50 ml 0 ml 0 ml Output Total 850 ml 925 ml Balance 50 ml -850 ml -925 ml medications Current Medications Medications Dose Ordered Sig/Abilio Route Start Time Stop Time Status Last Admin Dose Admin Acetaminophen/ Hydrocodone Bitart 1 tab Q4HP PRN PO 09/06/25 13:00 Ondansetron HCl 4 mg Q4HP PRN IV 09/06/25 13:00 Acetaminophen 650 mg Q6HP PRN PO 09/06/25 13:00 Morphine Sulfate 2 mg Q4HPRN PRN IV 09/06/25 13:00 09/10/25 05:14 2 MG Enoxaparin Sodium 40 mg DAILY SC 09/06/25 13:00 09/10/25 09:56 40 MG Nitroglycerin 0.4 mg Q5MINP PRN SL 09/06/25 13:00 Morphine Sulfate 2 mg Q30M PRN IV 09/06/25 13:00 Ertapenem 1 gm/ Sodium Chloride 50 ml @ 100 mls/hr DAILY IV 09/07/25 10:00 09/10/25 09:55 100 MLS/HR Amino Acids 0 ml @ 0 mls/hr PER PHARMACY IV 09/08/25 15:00 Diagnostic Test (Pha) 1 strip Q6HR 09/08/25 18:00 09/10/25 11:20 1 STRIP Insulin Human Regular FOLLOW SLIDING SCALE Q6HR SC 09/08/25 18:00 09/10/25 11:51 4 UNITS Dextrose 50 ml UD IV 09/08/25 15:30 Amino Acids/ Electrolytes/ Dextrose 1,000 ml @ 42 mls/hr DAILY@2200 IV 09/08/25 22:00 09/09/25 22:28 42 MLS/HR Aspirin 81 mg DAILY PO 09/09/25 10:00 Atorvastatin Calcium 20 mg HS PO 09/09/25 22:00 Cyanocobalamin 500 mcg DAILY PO 09/09/25 10:00 Albuterol 2.5 mg Q6HPRN PRN NEB 09/10/25 12:00 09/10/25 14:30 2.5 MG Examination: GENERAL:Normal, HEENT:Normal, NECK:Normal, LUNGS:Normal laboratory and microbiology Laboratory Tests 09/10/25 06:07 09/07/25 06:25 Test 09/10/25 06:07 Range/Units Serum Glucose 158 H 74-106 mg/dL Microbiology Date/Time Source Procedure Growth Status 09/08/25 10:20 Urine - Catheterized Urine Culture - Final Complete Labs and/or images reviewed: Labs reviewed by me, Image(s) reviewed by me Problem List/Assessment/Plan Problem List/Assessment/Plan 84 y.o male with PMHx of dementia, HLD, and HTN, presents to the ED via EMS following an unwitnessed fall last night. According to EMS, the patient was found on the floor next to his bed [facility]. The patient is currently disoriented, but his baseline mental status is difficult to ascertain due to his known dementia. A limited history was obtained because of his symptoms and cognitive state. Atrial fibrillation Metabolic encephalopathy recent CVA recent UTI cxr indicate bibasilar opacities sepsis with suspected PNA dementia mechanical fall, rule out fractures continue with [facility] tx for pna further evaluation Plan discussed with: Other (nursing) My Orders My Orders Orders - UNRULY SANDHU DO Procedure Category Date Status Time Comprehensive LAB 09/11/25 Verified Metabolic Panel 04:00 Magnesium LAB 09/11/25 Verified 04:00 Phosphorus LAB 09/11/25 Verified 04:00 Clinimix Per Pharmacy [facility] 09/10/25 In Process 09:27 Albuterol Medneb PHA 09/10/25 In Process (Ventolin Medneb) 12:00 * Burlapper CONS 09/10/25 Transmitted Consult Azithromycin 500mg/ PHA 09/11/25 Logged 250ml (Zithromax 50 10:00 Dietary Evaluation Review Comments: 1) Initiate Ensure High Protein bid 2) Initiate MVI @ 1 tb qd 3) Initiate vitamin C @ 500 mg bid and zinc sulfate @ 220 mg qd for 7 days 4) Follow-up with neurology, nephrology, cardiology, and pulmonology 5) Continue to monitor I&O, labs, and skin integrity Expected Outcomes/Goals: 1) appetite and labs to improve 2) wounds to improve 3) f/u in 3-5 days UNRULY SANDHU DO Sep 10, 2025 15:19
--- NOTE | 2025-09-10 23:46 | DVHPN2 ---
Progress Note - Dictate Date Seen: Sep 10, 2025 Medical Necessity Reason Pt with a Central, PICC or Fol: No Subjective Patient was seen and evaluated in follow up. Patient is confused. Sitter is at bedside. Patient is noted with a cough. NA 151, CL 112, BUN 33, AST 45. Telemetry reviewed. vital signs Vital Sign Date Time Temp Pulse Resp B/P (MAP) Pulse Ox O2 Delivery O2 Flow Rate FiO2 09/10/25 12:28 98.2 110 19 101/73 (82) 98 98.2 09/10/25 08:30 Nasal Cannula* 4 36 Total Intake and Output 09/09/25 09/09/25 09/10/25 15:00 23:00 07:00 Intake Total 50 ml 0 ml 0 ml Output Total 850 ml 925 ml Balance 50 ml -850 ml -925 ml medications Current Medications Medications Dose Ordered Sig/Abilio Route Start Time Stop Time Status Last Admin Dose Admin Acetaminophen/ Hydrocodone Bitart 1 tab Q4HP PRN PO 09/06/25 13:00 Ondansetron HCl 4 mg Q4HP PRN IV 09/06/25 13:00 Acetaminophen 650 mg Q6HP PRN PO 09/06/25 13:00 Morphine Sulfate 2 mg Q4HPRN PRN IV 09/06/25 13:00 09/10/25 05:14 2 MG Enoxaparin Sodium 40 mg DAILY SC 09/06/25 13:00 09/10/25 09:56 40 MG Nitroglycerin 0.4 mg Q5MINP PRN SL 09/06/25 13:00 Morphine Sulfate 2 mg Q30M PRN IV 09/06/25 13:00 Ertapenem 1 gm/ Sodium Chloride 50 ml @ 100 mls/hr DAILY IV 09/07/25 10:00 09/10/25 09:55 100 MLS/HR Amino Acids 0 ml @ 0 mls/hr PER PHARMACY IV 09/08/25 15:00 Diagnostic Test (Pha) 1 strip Q6HR 09/08/25 18:00 09/10/25 11:20 1 STRIP Insulin Human Regular FOLLOW SLIDING SCALE Q6HR SC 09/08/25 18:00 09/10/25 11:51 4 UNITS Dextrose 50 ml UD IV 09/08/25 15:30 Amino Acids/ Electrolytes/ Dextrose 1,000 ml @ 42 mls/hr DAILY@2200 IV 09/08/25 22:00 09/09/25 22:28 42 MLS/HR Aspirin 81 mg DAILY PO 09/09/25 10:00 Atorvastatin Calcium 20 mg HS PO 09/09/25 22:00 Cyanocobalamin 500 mcg DAILY PO 09/09/25 10:00 Albuterol 2.5 mg Q6HPRN PRN NEB 09/10/25 12:00 objective GENERAL: Altered. EYES: PERRL, EOMI. Anicteric. HENT: Moist mucous membranes. LUNGS: Clear to auscultation bilaterally. CARDIOVASCULAR: Irregular rate and rhythm. ABDOMEN: Soft, non-tender and non-distended. EXTREMITIES: No edema. SKIN: Warm, dry. laboratory and microbiology Laboratory Tests 09/10/25 06:07 09/07/25 06:25 Test 09/10/25 06:07 Range/Units Serum Glucose 158 H 74-106 mg/dL Problem List Paroxysmal atrial fibrillation. Metabolic encephalopathy. Elevated troponin. Dementia. HLD. HTN. History of TIA. Assessment/Plan Continued all current supportive medical care. Morphine and [place] for pain management. DVT prophylactics. IV antibiotics as ordered. Nitro SL. Additional plan as per the hospital course. Dietary Evaluation Review Comments: 1) Initiate Ensure High Protein bid 2) Initiate MVI @ 1 tb qd 3) Initiate vitamin C @ 500 mg bid and zinc sulfate @ 220 mg qd for 7 days 4) Follow-up with neurology, nephrology, cardiology, and pulmonology 5) Continue to monitor I&O, labs, and skin integrity Expected Outcomes/Goals: 1) appetite and labs to improve 2) wounds to improve 3) f/u in 3-5 days Plan discussed with: BLAINE Boudreaux MD Sep 10, 2025 13:01
[2025-09-11] VITALS (12 sets, daily range): BP systolic 122–149; BP diastolic 67–80; PULSE 78–110; RESP 17–20; TEMP 97.7–98.1; O2SAT 94–100
[2025-09-11 06:46] LABS: Alanine Aminotransferase 22 U/L (7-40); Alkaline Phosphatase 58 U/L (46-116); Anion Gap 10 (5-15); BUN/Creatinine Ratio 28.6 (10.0-20.0); Carbon Dioxide 29 mmol/L (20-31); Magnesium 2.2 mg/dL (1.6-2.6); Potassium 3.8 mmol/L (3.5-5.1); Total Protein 6.2 g/dL (5.7-8.2)
[2025-09-11 06:47] LABS: Bilirubin, Total 1.1 mg/dL (0.2-1.0)
[2025-09-11 06:50] LABS: Albumin 3.1 g/dL (3.2-4.8); Blood Urea Nitrogen 32 mg/dL (9-23); Calcium 8.5 mg/dL (8.7-10.4); Chloride 115 mmol/L (98-107); Glucose 191 mg/dL (74-106); Sodium 154 mmol/L (136-145)
[2025-09-11] MEDS: AZITHROMYCIN 500MG/250ML 250 ML IV SCH (10:56)
--- NOTE | 2025-09-11 12:55 | DVHPN2 ---
Progress Note - Dictate Date Seen: Sep 11, 2025 Medical Necessity Reason Pt with a Central, PICC or Fol: No Subjective Patient was seen and evaluated in follow up. Patient is on 15 L NRB. Sitter present at bedside. Patient is nonverbal. Urine culture shows no growth. NA 154, BUN 32. Telemetry reviewed. vital signs Vital Sign Date Time Temp Pulse Resp B/P (MAP) Pulse Ox O2 Delivery O2 Flow Rate FiO2 09/11/25 09:00 97.7 78 19 131/76 (94) 99 97.7 09/11/25 06:52 Non-Rebreather 15.0 09/11/25 06:52 N/A Total Intake and Output 09/10/25 09/10/25 09/11/25 15:00 23:00 07:00 Intake Total 176 ml 315 ml Output Total 1000 ml 500 ml Balance 176 ml -685 ml -500 ml medications Current Medications Medications Dose Ordered Sig/Abilio Route Start Time Stop Time Status Last Admin Dose Admin Acetaminophen/ Hydrocodone Bitart 1 tab Q4HP PRN PO 09/06/25 13:00 Ondansetron HCl 4 mg Q4HP PRN IV 09/06/25 13:00 Acetaminophen 650 mg Q6HP PRN PO 09/06/25 13:00 Morphine Sulfate 2 mg Q4HPRN PRN IV 09/06/25 13:00 09/10/25 16:51 2 MG Enoxaparin Sodium 40 mg DAILY SC 09/06/25 13:00 09/11/25 10:57 40 MG Nitroglycerin 0.4 mg Q5MINP PRN SL 09/06/25 13:00 Morphine Sulfate 2 mg Q30M PRN IV 09/06/25 13:00 Ertapenem 1 gm/ Sodium Chloride 50 ml @ 100 mls/hr DAILY IV 09/07/25 10:00 09/11/25 10:56 100 MLS/HR Amino Acids 0 ml @ 0 mls/hr PER PHARMACY IV 09/08/25 15:00 Diagnostic Test (Pha) 1 strip Q6HR 09/08/25 18:00 09/11/25 11:47 1 STRIP Insulin Human Regular FOLLOW SLIDING SCALE Q6HR SC 09/08/25 18:00 09/11/25 12:24 2 UNITS Dextrose 50 ml UD IV 09/08/25 15:30 Amino Acids/ Electrolytes/ Dextrose 1,000 ml @ 42 mls/hr DAILY@2200 IV 09/08/25 22:00 09/10/25 21:41 42 MLS/HR Aspirin 81 mg DAILY PO 09/09/25 10:00 Atorvastatin Calcium 20 mg HS PO 09/09/25 22:00 Cyanocobalamin 500 mcg DAILY PO 09/09/25 10:00 Albuterol 2.5 mg Q6HPRN PRN NEB 09/10/25 12:00 09/11/25 03:08 2.5 MG Azithromycin 250 ml @ 125 mls/hr DAILY IV 09/11/25 10:00 09/11/25 10:56 125 MLS/HR objective GENERAL: Altered. EYES: PERRL, EOMI. Anicteric. HENT: Moist mucous membranes. LUNGS: Clear to auscultation bilaterally. CARDIOVASCULAR: Irregular rate and rhythm. ABDOMEN: Soft, non-tender and non-distended. EXTREMITIES: No edema. SKIN: Warm, dry. laboratory and microbiology Laboratory Tests 09/11/25 05:27 09/07/25 06:25 Test 09/11/25 05:27 Range/Units Serum Glucose 191 H 74-106 mg/dL Problem List Paroxysmal atrial fibrillation. Metabolic encephalopathy. Elevated troponin. Dementia. HLD. HTN. History of TIA. Assessment/Plan Continued all current supportive medical care. Morphine and [place] for pain management. Aspirin, Lipitor. IV antibiotics as ordered. DVT prophylactics. Nitro SL. Additional plan as per the hospital course. Dietary Evaluation Review Comments: 1) Initiate Ensure High Protein bid 2) Initiate MVI @ 1 tb qd 3) Initiate vitamin C @ 500 mg bid and zinc sulfate @ 220 mg qd for 7 days 4) Follow-up with neurology, nephrology, cardiology, and pulmonology 5) Continue to monitor I&O, labs, and skin integrity Expected Outcomes/Goals: 1) appetite and labs to improve 2) wounds to improve 3) f/u in 3-5 days Plan discussed with: BLAINE Boudreaux MD Sep 11, 2025 12:45
[2025-09-11] MEDS: POTASSIUM PHOSPHATE 22 MEQ in SODIUM CHL 0.9% 100 ML IV ONE (14:08)
--- NOTE | 2025-09-11 22:33 | DVHPN2 ---
Progress Note - Dictate Date Seen: Sep 11, 2025 Medical Necessity Reason Pt with a Central, PICC or Fol: No Subjective While is a 84 years old gentleman with a history of hypertension, dyslipidemia, TIA, dementia, the patient was brought to the [facility] on 09/15/2025 with a chief complaint of fall, I have seen and examined the patient, I have talked to his nurse, he is awake, but does not not vocalize, he may follow up with a little bit He is not doing well, he on a non-rebreather for respiratory distress He only moves the left hand Urinalysis, 09/08/2025: WBC: 54, urine leukocyte esterase: 3+ WBC/HB/PLT/MCV, 09/07/2025: 16.6/40.9/326/92.8 Na 09/06/2025: 144, 09/07/2025: 148, 09/09/2025: 149, 09/10/2020 5:151, 09/11/25:153 BUN/CR, 09/06/2025: 35/1.91, 09/07/2025: 40/1.99, 09/09/2025: 29/1.4 GFR, 09/06/2025: 33, 09/07/2025: 33 TG/HDL/LDL/HDL, 09/09/2025: 114/136/85/33 Vitamin B12, 09/09/2025: 320 Folic acid, 09/09/2025: 7.59 TSH, 09/09/2025: 1.97 FT4 09/09/2025: 1.18 Extremity venous study, 09/08/2025: No flow noted in the right cephalic vein and no compressibility consistent with thrombosis. Carotid Doppler, 09/08/2025: No appreciable flow within either ICA suggesting either occlusion or near occlusion. MRI head, 09/08/2025: Limited examination. Only DWI and axial T2 images submitted for review. Recommend repeat brain MRI when patient is able to tolerate. 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 Correlate for thromboembolic, vasospastic etiology vital signs Vital Sign Date Time Temp Pulse Resp B/P (MAP) Pulse Ox O2 Delivery O2 Flow Rate FiO2 09/11/25 21:00 97.9 89 19 147/67 (93) 100 97.9 09/11/25 08:15 Non-Rebreather 15 N/A Total Intake and Output 09/10/25 09/10/25 09/11/25 15:00 23:00 07:00 Intake Total 176 ml 315 ml Output Total 1000 ml 500 ml Balance 176 ml -685 ml -500 ml medications Current Medications Medications Dose Ordered Sig/Abilio Route Start Time Stop Time Status Last Admin Dose Admin Acetaminophen/ Hydrocodone Bitart 1 tab Q4HP PRN PO 09/06/25 13:00 Ondansetron HCl 4 mg Q4HP PRN IV 09/06/25 13:00 Acetaminophen 650 mg Q6HP PRN PO 09/06/25 13:00 Morphine Sulfate 2 mg Q4HPRN PRN IV 09/06/25 13:00 09/10/25 16:51 2 MG Enoxaparin Sodium 40 mg DAILY SC 09/06/25 13:00 09/11/25 10:57 40 MG Nitroglycerin 0.4 mg Q5MINP PRN SL 09/06/25 13:00 Morphine Sulfate 2 mg Q30M PRN IV 09/06/25 13:00 Ertapenem 1 gm/ Sodium Chloride 50 ml @ 100 mls/hr DAILY IV 09/07/25 10:00 09/11/25 10:56 100 MLS/HR Amino Acids 0 ml @ 0 mls/hr PER PHARMACY IV 09/08/25 15:00 Diagnostic Test (Pha) 1 strip Q6HR 09/08/25 18:00 09/11/25 17:18 1 STRIP Insulin Human Regular FOLLOW SLIDING SCALE Q6HR SC 09/08/25 18:00 09/11/25 17:37 2 UNITS Dextrose 50 ml UD IV 09/08/25 15:30 Amino Acids/ Electrolytes/ Dextrose 1,000 ml @ 42 mls/hr DAILY@2200 IV 09/08/25 22:00 09/11/25 21:39 42 MLS/HR Aspirin 81 mg DAILY PO 09/09/25 10:00 Atorvastatin Calcium 20 mg HS PO 09/09/25 22:00 Cyanocobalamin 500 mcg DAILY PO 09/09/25 10:00 Albuterol 2.5 mg Q6HPRN PRN NEB 09/10/25 12:00 11/6/25 03:08 2.5 MG Azithromycin 250 ml @ 125 mls/hr DAILY IV 09/11/25 10:00 09/11/25 10:56 125 MLS/HR objective General: the patient is well developed and nourished. No acute distress. MENTAL STATUS: Subjective SPEECH, LANGUAGE, HIGHER CORTICAL FUNCTION: Subjective CRANIAL NERVES: Pupils are equal, round and reactive. Gait eye movement. Facial sensation okay in all three divisions bilaterally. Mandibular strength intact. Facial muscles symmetrical and strength intact. SENSATION: Sensation to touch and pinprick is fine MOTOR: Normal tone in the upper and lower extremity. Normal muscle bulk. No fasciculations. No abnormal movements or posturing. Minimal movement in left arm, REFLEXES: Deep tendon reflexes are symmetrical. 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 DVT prophylaxis/Lovenox Need more history More recommendation per clinical course He has a poor prognosis, need to consider code status This medical document was created using an electronic medical record system with Infer dictation system. Although this document has been carefully reviewed, there may still be some phonetic and typographical errors. These areas are purely typographical due to imperfections of the software programs, and do not reflect any compromise in the patient's medical care. Prognosis Poor Dietary Evaluation Review Comments: 1) Initiate Ensure High Protein bid 2) Initiate MVI @ 1 tb qd 3) Initiate vitamin C @ 500 mg bid and zinc sulfate @ 220 mg qd for 7 days 4) Follow-up with neurology, nephrology, cardiology, and pulmonology 5) Continue to monitor I&O, labs, and skin integrity Expected Outcomes/Goals: 1) appetite and labs to improve 2) wounds to improve 3) f/u in 3-5 days Plan discussed with: Other Total Time (mins): 35 ELLA MURDOCK MD Sep 11, 2025 22:33
[2025-09-12] VITALS (10 sets, daily range): BP systolic 105–159; BP diastolic 59–107; PULSE 67–89; RESP 18–20; TEMP 97.1–98.6; O2SAT 97–100
[2025-09-12 06:57] LABS: Alanine Aminotransferase 29 U/L (7-40); Alkaline Phosphatase 59 U/L (46-116); Anion Gap 10 (5-15); BUN/Creatinine Ratio 31.5 (10.0-20.0); Carbon Dioxide 29 mmol/L (20-31); Magnesium 2.2 mg/dL (1.6-2.6); Potassium 3.9 mmol/L (3.5-5.1); Total Protein 6.0 g/dL (5.7-8.2)
[2025-09-12 06:58] LABS: Bilirubin, Total 1.2 mg/dL (0.2-1.0)
[2025-09-12 07:01] LABS: Albumin 2.9 g/dL (3.2-4.8); Blood Urea Nitrogen 28 mg/dL (9-23); Calcium 8.5 mg/dL (8.7-10.4); Chloride 118 mmol/L (98-107); Glucose 153 mg/dL (74-106); Sodium 157 mmol/L (136-145)
[2025-09-12] MEDS: POTASSIUM PHOSPHATE 26.4 MEQ in SODIUM CHL 0.9% 100 ML IV ONE (16:00)
--- NOTE | 2025-09-12 17:39 | DVHPN2 ---
Progress Note - Dictate Date Seen: Sep 12, 2025 Medical Necessity Reason Pt with a Central, PICC or Fol: No Subjective Patient was seen and evaluated in follow up. Patient is maintained on 15 L NRB. Sitter remains present at bedside. Patient only moves his left hand. NA 157, CL 118, BUN 28, CA 8.5, AST 47. Telemetry reviewed. vital signs Vital Sign Date Time Temp Pulse Resp B/P (MAP) Pulse Ox O2 Delivery O2 Flow Rate FiO2 09/12/25 08:37 97.8 77 20 139/73 (95) 99 97.8 09/12/25 08:05 Non-Rebreather 15 N/A Total Intake and Output 09/11/25 09/11/25 09/12/25 15:00 23:00 07:00 Intake Total 300 ml 0 ml 0 ml Output Total 550 ml 750 ml Balance 300 ml -550 ml -750 ml medications Current Medications Medications Dose Ordered Sig/Abilio Route Start Time Stop Time Status Last Admin Dose Admin Acetaminophen/ Hydrocodone Bitart 1 tab Q4HP PRN PO 09/06/25 13:00 Ondansetron HCl 4 mg Q4HP PRN IV 09/06/25 13:00 Acetaminophen 650 mg Q6HP PRN PO 09/06/25 13:00 Morphine Sulfate 2 mg Q4HPRN PRN IV 09/06/25 13:00 09/10/25 16:51 2 MG Enoxaparin Sodium 40 mg DAILY SC 09/06/25 13:00 09/12/25 10:01 40 MG Nitroglycerin 0.4 mg Q5MINP PRN SL 09/06/25 13:00 Morphine Sulfate 2 mg Q30M PRN IV 09/06/25 13:00 Ertapenem 1 gm/ Sodium Chloride 50 ml @ 100 mls/hr DAILY IV 09/07/25 10:00 09/12/25 10:00 100 MLS/HR Amino Acids 0 ml @ 0 mls/hr PER PHARMACY IV 09/08/25 15:00 Diagnostic Test (Pha) 1 strip Q6HR 09/08/25 18:00 09/12/25 12:13 1 STRIP Insulin Human Regular FOLLOW SLIDING SCALE Q6HR SC 09/08/25 18:00 09/12/25 12:43 2 UNITS Dextrose 50 ml UD IV 09/08/25 15:30 Amino Acids/ Electrolytes/ Dextrose 1,000 ml @ 42 mls/hr DAILY@2200 IV 09/08/25 22:00 09/11/25 21:39 42 MLS/HR Aspirin 81 mg DAILY PO 09/09/25 10:00 Atorvastatin Calcium 20 mg HS PO 09/09/25 22:00 Cyanocobalamin 500 mcg DAILY PO 09/09/25 10:00 Albuterol 2.5 mg Q6HPRN PRN NEB 09/10/25 12:00 09/11/25 03:08 2.5 MG Azithromycin 250 ml @ 125 mls/hr DAILY IV 09/11/25 10:00 09/12/25 10:00 125 MLS/HR objective GENERAL: Altered. EYES: PERRL, EOMI. Anicteric. HENT: Moist mucous membranes. LUNGS: Clear to auscultation bilaterally. CARDIOVASCULAR: Irregular rate and rhythm. ABDOMEN: Soft, non-tender and non-distended. EXTREMITIES: No edema. SKIN: Warm, dry. laboratory and microbiology Laboratory Tests 09/12/25 04:55 09/07/25 06:25 Test 09/12/25 04:55 Range/Units Serum Glucose 153 H 74-106 mg/dL Problem List Paroxysmal atrial fibrillation. Metabolic encephalopathy. Elevated troponin. Dementia. HLD. HTN. History of TIA. Assessment/Plan Continued all current supportive medical care. Nitro SL. DVT prophylactics. IV antibiotics as ordered. Morphine and [place] for pain management. Additional plan as per the hospital course. Dietary Evaluation Review Comments: 1) Initiate Ensure High Protein bid 2) Initiate MVI @ 1 tb qd 3) Initiate vitamin C @ 500 mg bid and zinc sulfate @ 220 mg qd for 7 days 4) Follow-up with neurology, nephrology, cardiology, and pulmonology 5) Continue to monitor I&O, labs, and skin integrity Expected Outcomes/Goals: 1) appetite and labs to improve 2) wounds to improve 3) f/u in 3-5 days Plan discussed with: BLAINE Boudreaux MD Sep 12, 2025 12:47
--- NOTE | 2025-09-12 20:05 | DVHPN2 ---
Progress Note - Dictate Date Seen: Sep 12, 2025 Medical Necessity Reason Pt with a Central, PICC or Fol: No Subjective While is a 84 years old gentleman with a history of hypertension, dyslipidemia, TIA, dementia, the patient was brought to the [facility] on 09/15/2025 with a chief complaint of fall, I have seen and examined the patient, I have talked to his nurse, he looks better today, awake, responsive to verbal stimuli, he follows verbal commands a little bit, He only moves the left hand Urinalysis, 09/08/2025: WBC: 54, urine leukocyte esterase: 3+ WBC/HB/PLT/MCV, 09/07/2025: 16.6/40.9/326/92.8 Na 09/06/2025: 144, 09/07/2025: 148, 09/09/2025: 149, 09/10/2020 5:151, 09/11/25:153, 09/12/2025: 157 BUN/CR, 09/06/2025: 35/1.91, 09/07/2025: 40/1.99, 09/09/2025: 29/1.4, 09/12/2025: 28/0.98 GFR, 09/06/2025: 33, 09/07/2025: 33 TBI/AST/ALT/AP, 09/12/2025: 1.2/47/29/59 TG/HDL/LDL/HDL, 09/09/2025: 114/136/85/33 Vitamin B12, 09/09/2025: 320 Folic acid, 09/09/2025: 7.59 TSH, 09/09/2025: 1.97 FT4 09/09/2025: 1.18 Extremity venous study, 09/08/2025: No flow noted in the right cephalic vein and no compressibility consistent with thrombosis. Carotid Doppler, 09/08/2025: No appreciable flow within either ICA suggesting either occlusion or near occlusion. MRI head, 09/08/2025: Limited examination. Only DWI and axial T2 images submitted for review. Recommend repeat brain MRI when patient is able to tolerate. 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 Correlate for thromboembolic, vasospastic etiology vital signs Vital Sign Date Time Temp Pulse Resp B/P (MAP) Pulse Ox O2 Delivery O2 Flow Rate FiO2 09/12/25 17:00 97.8 76 18 159/107 (124) 97 97.8 09/12/25 16:25 Mask 6.0 09/12/25 16:25 50 Total Intake and Output 09/11/25 09/11/25 09/12/25 15:00 23:00 07:00 Intake Total 300 ml 0 ml 0 ml Output Total 550 ml 750 ml Balance 300 ml -550 ml -750 ml medications Current Medications Medications Dose Ordered Sig/Abilio Route Start Time Stop Time Status Last Admin Dose Admin Acetaminophen/ Hydrocodone Bitart 1 tab Q4HP PRN PO 09/06/25 13:00 Ondansetron HCl 4 mg Q4HP PRN IV 09/06/25 13:00 Acetaminophen 650 mg Q6HP PRN PO 09/06/25 13:00 Morphine Sulfate 2 mg Q4HPRN PRN IV 09/06/25 13:00 09/10/25 16:51 2 MG Enoxaparin Sodium 40 mg DAILY SC 09/06/25 13:00 09/12/25 10:01 40 MG Nitroglycerin 0.4 mg Q5MINP PRN SL 09/06/25 13:00 Morphine Sulfate 2 mg Q30M PRN IV 09/06/25 13:00 Ertapenem 1 gm/ Sodium Chloride 50 ml @ 100 mls/hr DAILY IV 09/07/25 10:00 09/12/25 10:00 100 MLS/HR Amino Acids 0 ml @ 0 mls/hr PER PHARMACY IV 09/08/25 15:00 Diagnostic Test (Pha) 1 strip Q6HR 09/08/25 18:00 09/12/25 17:07 1 STRIP Insulin Human Regular FOLLOW SLIDING SCALE Q6HR SC 09/08/25 18:00 09/12/25 12:43 2 UNITS Dextrose 50 ml UD IV 09/08/25 15:30 Amino Acids/ Electrolytes/ Dextrose 1,000 ml @ 42 mls/hr DAILY@2200 IV 09/08/25 22:00 09/11/25 21:39 42 MLS/HR Aspirin 81 mg DAILY PO 09/09/25 10:00 Atorvastatin Calcium 20 mg HS PO 09/09/25 22:00 Cyanocobalamin 500 mcg DAILY PO 09/09/25 10:00 Albuterol 2.5 mg Q6HPRN PRN NEB 09/10/25 12:00 09/11/25 03:08 2.5 MG Azithromycin 250 ml @ 125 mls/hr DAILY IV 09/11/25 10:00 09/12/25 10:00 125 MLS/HR objective General: the patient is well developed and nourished. No acute distress. MENTAL STATUS: Subjective SPEECH, LANGUAGE, HIGHER CORTICAL FUNCTION: Subjective CRANIAL NERVES: Pupils are equal, round and reactive. Gait eye movement. Facial sensation okay in all three divisions bilaterally. Mandibular strength intact. Facial muscles symmetrical and strength intact. SENSATION: Sensation to touch and pinprick is fine MOTOR: Normal tone in the upper and lower extremity. Normal muscle bulk. No fasciculations. No abnormal movements or posturing. Minimal movement in left arm, REFLEXES: Deep tendon reflexes are symmetrical. 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 DVT prophylaxis/Lovenox Need more history More recommendation per clinical course He has a poor prognosis, need to consider code status This medical document was created using an electronic medical record system with [employer] dictation system. Although this document has been carefully reviewed, there may still be some phonetic and typographical errors. These areas are purely typographical due to imperfections of the software programs, and do not reflect any compromise in the patient's medical care. Prognosis poor Dietary Evaluation Review Comments: 1) Initiate Ensure High Protein bid 2) Initiate MVI @ 1 tb qd 3) Initiate vitamin C @ 500 mg bid and zinc sulfate @ 220 mg qd for 7 days 4) Follow-up with neurology, nephrology, cardiology, and pulmonology 5) Continue to monitor I&O, labs, and skin integrity Expected Outcomes/Goals: 1) appetite and labs to improve 2) wounds to improve 3) f/u in 3-5 days Plan discussed with: Other Total Time (mins): 35 ELLA MURDOCK MD Sep 12, 2025 20:05
[2025-09-13] VITALS (13 sets, daily range): BP systolic 109–133; BP diastolic 55–81; PULSE 56–106; RESP 17–22; TEMP 97.1–98.8; O2SAT 93–100
[2025-09-13 08:51] LABS: Alanine Aminotransferase 39 U/L (7-40); Alkaline Phosphatase 70 U/L (46-116); Carbon Dioxide 29 mmol/L (20-31); Potassium 4.3 mmol/L (3.5-5.1)
[2025-09-13 08:52] LABS: Anion Gap 13 (5-15); BUN/Creatinine Ratio 28.8 (10.0-20.0); Blood Urea Nitrogen 23 mg/dL (9-23)
[2025-09-13 08:53] LABS: Magnesium 2.2 mg/dL (1.6-2.6); Total Protein 6.3 g/dL (5.7-8.2)
[2025-09-13 08:54] LABS: Albumin 3.0 g/dL (3.2-4.8); Bilirubin, Total 1.1 mg/dL (0.2-1.0); Calcium 8.7 mg/dL (8.7-10.4); Chloride 117 mmol/L (98-107); Glucose 130 mg/dL (74-106); Sodium 159 mmol/L (136-145)
--- NOTE | 2025-09-13 23:19 | DVHPN2 ---
Progress Note Date Seen: Sep 12, 2025 Medical Necessity Reason Pt with a Central, PICC or Fol: No Subjective Review of Systems: HEENT:Normal, CVS:Normal, RESPIRATORY:Normal Objective vital signs Vital Sign Date Time Temp Pulse Resp B/P (MAP) Pulse Ox O2 Delivery O2 Flow Rate FiO2 09/13/25 21:00 97.5 104 20 124/75 (91) 95 97.5 09/13/25 20:00 Simple Mask* 6 50 Total Intake and Output 09/12/25 09/12/25 09/13/25 15:00 23:00 07:00 Intake Total 300 ml 0 ml 0 ml Output Total 615 ml 450 ml Balance 300 ml -615 ml -450 ml medications Current Medications Medications Dose Ordered Sig/Abilio Route Start Time Stop Time Status Last Admin Dose Admin Acetaminophen/ Hydrocodone Bitart 1 tab Q4HP PRN PO 09/06/25 13:00 Ondansetron HCl 4 mg Q4HP PRN IV 09/06/25 13:00 Acetaminophen 650 mg Q6HP PRN PO 09/06/25 13:00 Morphine Sulfate 2 mg Q4HPRN PRN IV 09/06/25 13:00 09/10/25 16:51 2 MG Enoxaparin Sodium 40 mg DAILY SC 09/06/25 13:00 09/13/25 10:21 40 MG Nitroglycerin 0.4 mg Q5MINP PRN SL 09/06/25 13:00 Morphine Sulfate 2 mg Q30M PRN IV 09/06/25 13:00 Ertapenem 1 gm/ Sodium Chloride 50 ml @ 100 mls/hr DAILY IV 09/07/25 10:00 09/13/25 12:42 100 MLS/HR Amino Acids 0 ml @ 0 mls/hr PER PHARMACY IV 09/08/25 15:00 Diagnostic Test (Pha) 1 strip Q6HR 09/08/25 18:00 09/13/25 06:19 1 STRIP Insulin Human Regular FOLLOW SLIDING SCALE Q6HR SC 09/08/25 18:00 09/13/25 18:21 2 UNITS Dextrose 50 ml UD IV 09/08/25 15:30 Amino Acids/ Electrolytes/ Dextrose 1,000 ml @ 42 mls/hr DAILY@2200 IV 09/08/25 22:00 09/13/25 21:43 42 MLS/HR Aspirin 81 mg DAILY PO 09/09/25 10:00 Atorvastatin Calcium 20 mg HS PO 09/09/25 22:00 Cyanocobalamin 500 mcg DAILY PO 09/09/25 10:00 Albuterol 2.5 mg Q6HPRN PRN NEB 09/10/25 12:00 09/13/25 09:36 2.5 MG Azithromycin 250 ml @ 125 mls/hr DAILY IV 09/11/25 10:00 09/12/25 10:00 125 MLS/HR Examination: GENERAL:Normal, HEENT:Normal, NECK:Normal laboratory and microbiology Laboratory Tests 09/13/25 06:21 09/07/25 06:25 Test 09/13/25 06:21 Range/Units Serum Glucose 130 H 74-106 mg/dL Microbiology Date/Time Source Procedure Growth Status 09/08/25 10:20 Urine - Catheterized Urine Culture - Final Complete Labs and/or images reviewed: Labs reviewed by me, Image(s) reviewed by me Problem List/Assessment/Plan Problem List/Assessment/Plan 84 y.o male with PMHx of dementia, HLD, and HTN, presents to the ED via EMS following an unwitnessed fall last night. According to EMS, the patient was found on the floor next to his bed at [facility]. The patient is currently disoriented, but his baseline mental status is difficult to ascertain due to his known dementia. A limited history was obtained because of his symptoms and cognitive state. 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 Multiple strokes Altered mental status Secondary to metabolic encephalopathy, UTI related, hypernatremia Secondary multiple strokes Urinalysis Leukocytosis/sepsis Respiratory failure Dementia, he may have advanced dementia continue with [facility] tx for pna further evaluation Plan discussed with: Patient My Orders My Orders Orders - UNRULY SANDHU DO Procedure Category Date Status Time Comprehensive LAB 09/14/25 Verified Metabolic Panel 05:00 Phosphorus LAB 09/14/25 Verified 05:00 Magnesium LAB 09/14/25 Verified 05:00 Clinim[facility] Per Pharm[facility] 09/13/25 In Process 22:00 Dietary Evaluation Review Comments: 1) Initiate Ensure High Protein bid 2) Initiate MVI @ 1 tb qd 3) Initiate vitamin C @ 500 mg bid and zinc sulfate @ 220 mg qd for 7 days 4) Follow-up with neurology, nephrology, cardiology, and pulmonology 5) Continue to monitor I&O, labs, and skin integrity Expected Outcomes/Goals: 1) appetite and labs to improve 2) wounds to improve 3) f/u in 3-5 days UNRULY SANDHU DO Sep 13, 2025 23:19
--- NOTE | 2025-09-13 23:36 | DVHPN2 ---
Progress Note - Dictate Date Seen: Sep 13, 2025 Medical Necessity Reason Pt with a Central, PICC or Fol: No Subjective Patient was seen and evaluated in follow up. Patient is c/o SOB. Patient is now on 6 L simple mask. NA 159. Telemetry reviewed. vital signs Vital Sign Date Time Temp Pulse Resp B/P (MAP) Pulse Ox O2 Delivery O2 Flow Rate FiO2 09/13/25 21:00 97.5 104 20 124/75 (91) 95 97.5 09/13/25 20:00 Simple Mask* 6 50 Total Intake and Output 09/12/25 09/12/25 09/13/25 15:00 23:00 07:00 Intake Total 300 ml 0 ml 0 ml Output Total 615 ml 450 ml Balance 300 ml -615 ml -450 ml medications Current Medications Medications Dose Ordered Sig/Abilio Route Start Time Stop Time Status Last Admin Dose Admin Acetaminophen/ Hydrocodone Bitart 1 tab Q4HP PRN PO 09/06/25 13:00 Ondansetron HCl 4 mg Q4HP PRN IV 09/06/25 13:00 Acetaminophen 650 mg Q6HP PRN PO 09/06/25 13:00 Morphine Sulfate 2 mg Q4HPRN PRN IV 09/06/25 13:00 09/10/25 16:51 2 MG Enoxaparin Sodium 40 mg DAILY SC 09/06/25 13:00 09/13/25 10:21 40 MG Nitroglycerin 0.4 mg Q5MINP PRN SL 09/06/25 13:00 Morphine Sulfate 2 mg Q30M PRN IV 09/06/25 13:00 Ertapenem 1 gm/ Sodium Chloride 50 ml @ 100 mls/hr DAILY IV 09/07/25 10:00 09/13/25 12:42 100 MLS/HR Amino Acids 0 ml @ 0 mls/hr PER PHARMACY IV 09/08/25 15:00 Diagnostic Test (Pha) 1 strip Q6HR 09/08/25 18:00 09/13/25 06:19 1 STRIP Insulin Human Regular FOLLOW SLIDING SCALE Q6HR SC 09/08/25 18:00 09/13/25 18:21 2 UNITS Dextrose 50 ml UD IV 09/08/25 15:30 Amino Acids/ Electrolytes/ Dextrose 1,000 ml @ 42 mls/hr DAILY@2200 IV 09/08/25 22:00 09/13/25 21:43 42 MLS/HR Aspirin 81 mg DAILY PO 09/09/25 10:00 Atorvastatin Calcium 20 mg HS PO 09/09/25 22:00 Cyanocobalamin 500 mcg DAILY PO 09/09/25 10:00 Albuterol 2.5 mg Q6HPRN PRN NEB 09/10/25 12:00 09/13/25 09:36 2.5 MG Azithromycin 250 ml @ 125 mls/hr DAILY IV 09/11/25 10:00 09/12/25 10:00 125 MLS/HR objective GENERAL: Altered. EYES: PERRL, EOMI. Anicteric. HENT: Moist mucous membranes. LUNGS: Clear to auscultation bilaterally. CARDIOVASCULAR: Irregular rate and rhythm. ABDOMEN: Soft, non-tender and non-distended. EXTREMITIES: No edema. SKIN: Warm, dry. laboratory and microbiology Laboratory Tests 09/13/25 06:21 09/07/25 06:25 Test 09/13/25 06:21 Range/Units Serum Glucose 130 H 74-106 mg/dL Problem List Paroxysmal atrial fibrillation. Metabolic encephalopathy. Elevated troponin. Dementia. HLD. HTN. History of TIA. Assessment/Plan Continued all current supportive medical care. Nitro SL. DVT prophylactics. IV antibiotics as ordered. Morphine and [place] for pain management. Additional plan as per the hospital course. Dietary Evaluation Review Comments: 1) Initiate Ensure High Protein bid 2) Initiate MVI @ 1 tb qd 3) Initiate vitamin C @ 500 mg bid and zinc sulfate @ 220 mg qd for 7 days 4) Follow-up with neurology, nephrology, cardiology, and pulmonology 5) Continue to monitor I&O, labs, and skin integrity Expected Outcomes/Goals: 1) appetite and labs to improve 2) wounds to improve 3) f/u in 3-5 days Plan discussed with: Patient BLAINE NASH MD Sep 13, 2025 23:36
--- NOTE | 2025-09-13 23:51 | DVHPN2 ---
Progress Note - Dictate Date Seen: Sep 13, 2025 Medical Necessity Reason Pt with a Central, PICC or Fol: No Subjective While is a 84 years old gentleman with a history of hypertension, dyslipidemia, TIA, dementia, the patient was brought to the [facility] on 09/15/2025 with a chief complaint of fall, I have seen and examined the patient, I have talked to his nurse, he looks better today, awake, responsive to verbal stimuli, he follows verbal commands a little bit, her voice is very soft He only moves the left hand a little bit Dr. Norris's and ER notes patient AFib. I have talked to weatherization technician, we have not captured AFib. SNF med list did not include anticoagulant Urinalysis, 09/08/2025: WBC: 54, urine leukocyte esterase: 3+ WBC/HB/PLT/MCV, 09/07/2025: 16.6/40.9/326/92.8 Na 09/06/2025: 144, 09/07/2025: 148, 09/09/2025: 149, 09/10/2020 5:151, 09/11/25:153, 09/12/2025: 157 BUN/CR, 09/06/2025: 35/1.91, 09/07/2025: 40/1.99, 09/09/2025: 29/1.4, 09/12/2025: 28/0.98 GFR, 09/06/2025: 33, 09/07/2025: 33 TBI/AST/ALT/AP, 09/12/2025: 1.2/47/29/59 TG/HDL/LDL/HDL, 09/09/2025: 114/136/85/33 Vitamin B12, 09/09/2025: 320 Folic acid, 09/09/2025: 7.59 TSH, 09/09/2025: 1.97 FT4 09/09/2025: 1.18 Extremity venous study, 09/08/2025: No flow noted in the right cephalic vein and no compressibility consistent with thrombosis. Carotid Doppler, 09/08/2025: No appreciable flow within either ICA suggesting either occlusion or near occlusion. MRI head, 09/08/2025: Limited examination. Only DWI and axial T2 images submitted for review. Recommend repeat brain MRI when patient is able to tolerate. 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 Correlate for thromboembolic, vasospastic etiology vital signs Vital Sign Date Time Temp Pulse Resp B/P (MAP) Pulse Ox O2 Delivery O2 Flow Rate FiO2 09/13/25 21:00 97.5 104 20 124/75 (91) 95 97.5 09/13/25 20:00 Simple Mask* 6 50 Total Intake and Output 09/12/25 09/12/25 09/13/25 15:00 23:00 07:00 Intake Total 300 ml 0 ml 0 ml Output Total 615 ml 450 ml Balance 300 ml -615 ml -450 ml medications Current Medications Medications Dose Ordered Sig/Abilio Route Start Time Stop Time Status Last Admin Dose Admin Acetaminophen/ Hydrocodone Bitart 1 tab Q4HP PRN PO 09/06/25 13:00 Ondansetron HCl 4 mg Q4HP PRN IV 09/06/25 13:00 Acetaminophen 650 mg Q6HP PRN PO 09/06/25 13:00 Morphine Sulfate 2 mg Q4HPRN PRN IV 09/06/25 13:00 09/10/25 16:51 2 MG Enoxaparin Sodium 40 mg DAILY SC 09/06/25 13:00 09/13/25 10:21 40 MG Nitroglycerin 0.4 mg Q5MINP PRN SL 09/06/25 13:00 Morphine Sulfate 2 mg Q30M PRN IV 09/06/25 13:00 Ertapenem 1 gm/ Sodium Chloride 50 ml @ 100 mls/hr DAILY IV 09/07/25 10:00 09/13/25 12:42 100 MLS/HR Amino Acids 0 ml @ 0 mls/hr PER PHARMACY IV 09/08/25 15:00 Diagnostic Test (Pha) 1 strip Q6HR 09/08/25 18:00 09/13/25 06:19 1 STRIP Insulin Human Regular FOLLOW SLIDING SCALE Q6HR SC 09/08/25 18:00 09/13/25 18:21 2 UNITS Dextrose 50 ml UD IV 09/08/25 15:30 Amino Acids/ Electrolytes/ Dextrose 1,000 ml @ 42 mls/hr DAILY@2200 IV 09/08/25 22:00 09/13/25 21:43 42 MLS/HR Aspirin 81 mg DAILY PO 09/09/25 10:00 Atorvastatin Calcium 20 mg HS PO 09/09/25 22:00 Cyanocobalamin 500 mcg DAILY PO 09/09/25 10:00 Albuterol 2.5 mg Q6HPRN PRN NEB 09/10/25 12:00 09/13/25 09:36 2.5 MG Azithromycin 250 ml @ 125 mls/hr DAILY IV 09/11/25 10:00 09/12/25 10:00 125 MLS/HR objective General: the patient is well developed and nourished. No acute distress. MENTAL STATUS: Subjective SPEECH, LANGUAGE, HIGHER CORTICAL FUNCTION: Subjective CRANIAL NERVES: Pupils are equal, round and reactive. Gait eye movement. Facial sensation okay in all three divisions bilaterally. Mandibular strength intact. Facial muscles symmetrical and strength intact. SENSATION: Sensation to touch and pinprick is fine MOTOR: Normal tone in the upper and lower extremity. Normal muscle bulk. No fasciculations. No abnormal movements or posturing. Minimal movement in left arm, REFLEXES: Deep tendon reflexes are symmetrical. 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 Norris's notes and ER note, she has not captured AFib, SNF med list: No anticoagulant)) Assessment/Plan Monitoring Supportive treatment Telemetry ROMAN Aspirin 81 mg daily Lipitor 10 mg daily Vitamin B12, 500 mcg q.d. DVT prophylaxis/Lovenox Need more history RN to call Dr. Norris Re: Diagnosis AFib and anticoagulant treatment More recommendation per clinical course He has a poor prognosis, need to consider code status This medical document was created using an electronic medical record system with [employer] system. Although this document has been carefully reviewed, there may still be some phonetic and typographical errors. These areas are purely typographical due to imperfections of the software programs, and do not reflect any compromise in the patient's medical care. Prognosis poor Dietary Evaluation Review Comments: 1) Initiate Ensure High Protein bid 2) Initiate MVI @ 1 tb qd 3) Initiate vitamin C @ 500 mg bid and zinc sulfate @ 220 mg qd for 7 days 4) Follow-up with neurology, nephrology, cardiology, and pulmonology 5) Continue to monitor I&O, labs, and skin integrity Expected Outcomes/Goals: 1) appetite and labs to improve 2) wounds to improve 3) f/u in 3-5 days Plan discussed with: Other Total Time (mins): 40 ELLA MURDOCK MD Sep 13, 2025 23:51
[2025-09-14] VITALS (10 sets, daily range): BP systolic 125–147; BP diastolic 67–88; PULSE 51–100; RESP 16–20; TEMP 97.7–98.9; O2SAT 94–100
[2025-09-14 07:00] LABS: Alkaline Phosphatase 71 U/L (46-116); BUN/Creatinine Ratio 29.6 (10.0-20.0); Carbon Dioxide 30 mmol/L (20-31); Magnesium 2.0 mg/dL (1.6-2.6); Total Protein 6.1 g/dL (5.7-8.2)
[2025-09-14 07:01] LABS: Potassium 4.1 mmol/L (3.5-5.1)
[2025-09-14 07:04] LABS: Glucose 162 mg/dL (74-106); Sodium 155 mmol/L (136-145)
[2025-09-14 07:05] LABS: Alanine Aminotransferase 48 U/L (7-40); Albumin 3.0 g/dL (3.2-4.8); Bilirubin, Total 1.4 mg/dL (0.2-1.0); Blood Urea Nitrogen 24 mg/dL (9-23); Calcium 8.6 mg/dL (8.7-10.4)
[2025-09-14 09:08] LABS: Anion Gap 8 (5-15)
[2025-09-14 10:23] LABS: Hematocrit 44.3 % (41.0-53.0); Hemoglobin 14.1 g/dL (13.5-17.5); Mean Corpuscular Hemoglobin 30.6 pg (28.0-32.0); Mean Corpuscular Volume 95.8 fL (80.0-100.0); Nucleated Red Blood Cells % 0.1 %
--- NOTE | 2025-09-14 11:33 | DVHPN2 ---
Progress Note - Dictate Date Seen: Sep 14, 2025 Medical Necessity Reason Pt with a Central, PICC or Fol: No Subjective Patient was seen and evaluated in follow up. Patient is on 8 L by simple mask. Patient reports feeling SOB. WBC 13.6, NA 155, BUN 24. Telemetry reviewed. vital signs Vital Sign Date Time Temp Pulse Resp B/P (MAP) Pulse Ox O2 Delivery O2 Flow Rate FiO2 09/14/25 09:00 98.9 88 18 126/82 (97) 96 98.9 09/13/25 23:44 Simple Mask* 8 60 Total Intake and Output 09/13/25 09/13/25 09/14/25 15:00 23:00 07:00 Intake Total 50 ml 0 ml Output Total 300 ml Balance 50 ml -300 ml medications Current Medications Medications Dose Ordered Sig/Abilio Route Start Time Stop Time Status Last Admin Dose Admin Acetaminophen/ Hydrocodone Bitart 1 tab Q4HP PRN PO 09/06/25 13:00 Ondansetron HCl 4 mg Q4HP PRN IV 09/06/25 13:00 Acetaminophen 650 mg Q6HP PRN PO 09/06/25 13:00 Morphine Sulfate 2 mg Q4HPRN PRN IV 09/06/25 13:00 09/10/25 16:51 2 MG Enoxaparin Sodium 40 mg DAILY SC 09/06/25 13:00 09/14/25 08:31 40 MG Nitroglycerin 0.4 mg Q5MINP PRN SL 09/06/25 13:00 Morphine Sulfate 2 mg Q30M PRN IV 09/06/25 13:00 Ertapenem 1 gm/ Sodium Chloride 50 ml @ 100 mls/hr DAILY IV 09/07/25 10:00 09/13/25 12:42 100 MLS/HR Amino Acids 0 ml @ 0 mls/hr PER PHARMACY IV 09/08/25 15:00 Diagnostic Test (Pha) 1 strip Q6HR 09/08/25 18:00 09/14/25 05:35 1 STRIP Insulin Human Regular FOLLOW SLIDING SCALE Q6HR SC 09/08/25 18:00 09/14/25 05:38 4 UNITS Dextrose 50 ml UD IV 09/08/25 15:30 Amino Acids/ Electrolytes/ Dextrose 1,000 ml @ 42 mls/hr DAILY@2200 IV 09/08/25 22:00 09/13/25 21:43 42 MLS/HR Aspirin 81 mg DAILY PO 09/09/25 10:00 Atorvastatin Calcium 20 mg HS PO 09/09/25 22:00 Cyanocobalamin 500 mcg DAILY PO 09/09/25 10:00 Albuterol 2.5 mg Q6HPRN PRN NEB 09/10/25 12:00 09/14/25 07:58 2.5 MG Azithromycin 250 ml @ 125 mls/hr DAILY IV 09/11/25 10:00 09/14/25 08:30 125 MLS/HR objective GENERAL: Altered. EYES: PERRL, EOMI. Anicteric. HENT: Moist mucous membranes. LUNGS: Clear to auscultation bilaterally. CARDIOVASCULAR: Irregular rate and rhythm. ABDOMEN: Soft, non-tender and non-distended. EXTREMITIES: No edema. SKIN: Warm, dry. laboratory and microbiology Laboratory Tests 09/14/25 06:05 Test 09/14/25 06:05 Range/Units Serum Glucose 162 H 74-106 mg/dL Problem List Paroxysmal atrial fibrillation. Metabolic encephalopathy. Elevated troponin. Dementia. HLD. HTN. History of TIA. Assessment/Plan Continued all current supportive medical care. Nitro SL. DVT prophylactics. IV antibiotics as ordered. Morphine and [place] for pain management. Additional plan as per the hospital course. Dietary Evaluation Review Comments: 1) Initiate Ensure High Protein bid 2) Initiate MVI @ 1 tb qd 3) Initiate vitamin C @ 500 mg bid and zinc sulfate @ 220 mg qd for 7 days 4) Follow-up with neurology, nephrology, cardiology, and pulmonology 5) Continue to monitor I&O, labs, and skin integrity Expected Outcomes/Goals: 1) appetite and labs to improve 2) wounds to improve 3) f/u in 3-5 days Plan discussed with: Patient BLAINE NASH MD Sep 14, 2025 11:33
--- NOTE | 2025-09-14 11:57 | DVHDS2 ---
Discharge Summary Date of Admission Sep 06, 2025 at 12:53 Date of Discharge: Sep 14, 2025 Labs/Diagnostic Data: Laboratory Results Test 09/14/25 06:05 09/14/25 05:33 09/09/25 14:28 09/09/25 00:12 White Blood Count 13.6 10^3/uL (4.4-10.8) Red Blood Count 4.63 10^6/uL (4.5-5.90) Hemoglobin 14.1 g/dL (13.5-17.5) Hematocrit 44.3 % (41.0-53.0) Mean Corpuscular Volume 95.8 fL (80.0-100.0) Mean Corpuscular Hemoglobin 30.6 pg (28.0-32.0) Mean Corpuscular Hemoglobin Concent 31.9 g/dL (32.0-36.0) Red Cell Distribution Width 15.0 % (11.8-14.3) Platelet Count 252 10^3/uL (140-450) Mean Platelet Volume 12.2 fL (6.9-10.8) Neutrophils (%) (Auto) 80.4 % (37.0-80.0) Lymphocytes (%) (Auto) 11.3 % (10.0-50.0) Monocytes (%) (Auto) 6.0 % (0.0-12.0) Eosinophils (%) (Auto) 1.9 % (0.0-7.0) Basophils (%) (Auto) 0.4 % (0.0-2.0) Neutrophils # (Auto) 10.9 10 ^3/uL (1.6-8.6) Lymphocytes # (Auto) 1.5 10 ^3/uL (0.4-5.4) Monocytes # (Auto) 0.8 10 ^3/uL (0-1.3) Eosinophils # (Auto) 0.3 10 ^3/uL (0-0.8) Basophils # (Auto) 0 10 ^3/uL (0-0.2) Nucleated Red Blood Cells 0.1 % Sodium Level 155 mmol/L (136-145) Potassium Level 4.1 mmol/L (3.5-5.1) Chloride Level mmol/L (98-107) Carbon Dioxide Level 30 mmol/L (20-31) Anion Gap 8 (5-15) Blood Urea Nitrogen 24 mg/dL (9-23) Creatinine 0.81 mg/dL (0.700-1.30) Glomerular Filtration Rate Calc 87 mL/min (>90) BUN/Creatinine Ratio 29.6 (10.0-20.0) Serum Glucose 162 mg/dL (74-106) Calcium Level 8.6 mg/dL (8.7-10.4) Phosphorus Level 2.5 mg/dL (2.4-5.1) Magnesium Level 2.0 mg/dL (1.6-2.6) Total Bilirubin 1.4 mg/dL (0.2-1.0) Aspartate Amino Transferase (AST) 49 U/L (13-40) Alanine Aminotransferase (ALT) 48 U/L (7-40) Alkaline Phosphatase 71 U/L (46-116) Total Protein 6.1 g/dL (5.7-8.2) Albumin 3.0 g/dL (3.2-4.8) POC Glucose 178 mg/dl (70-106) Free Prostate Specific Antigen 0.27 ng/mL (N/A) Percent Free Prostate Specific Ag 8.4 % (.) Prostate Specific Antigen Total 3.2 ng/mL (0.0-4.0) Triglycerides Level 114 mg/dL (< 150) Cholesterol Level 136 mg/dL (< 200) LDL Cholesterol 85 mg/dL (< 100) HDL Cholesterol 33 mg/dL (40-59) Vitamin B12 Level 320 pg/mL (211-911) Folic Acid 7.59 ng/mL (>5.38) Thyroid Stimulating Hormone (TSH) 1.97 uIU/mL (0.55-4.78) Free Thyroxine (T4) Calculated 1.18 ng/dL (0.89-1.76) Test 09/08/25 15:22 09/08/25 10:20 09/06/25 13:01 Blood Gas Specimen Type Arterial Blood Gas Sample Site Left radial Blood Gas Patient Temperature 37.0 Arterial Blood Date Drawn [id number] Arterial Blood pH 7.436 (7.350-7.450) Arterial Blood Partial Pressure CO2 33.7 mmHg (35.0-48.0) Arterial Blood Partial Pressure O2 76.2 mmHg (83.0-108.0) Arterial Blood HCO3 22.2 mmol/L (21.0-28.0) Arterial Blood Oxygen Saturation 95.3 % (94.0-98.0) Arterial Blood Base Excess -1.2 mmol/L (-2.0-3.0) Arterial Blood Oxyhemoglobin 93.6 % (94.0-98.0) Arterial Blood Carboxyhemoglobin 1.2 % (0.5-1.5) Arterial Blood Methemoglobin 0.6 % (0.0-1.5) Bernard Test Yes Blood Gas Total Hemoglobin 16.00 g/dL (13.5-17.5) Blood Gas Liter Flow 4.00 Blood Gas Modality Nasal cannula FiO2 % 36.0 Urine Color Light-orange (Yellow) Urine Clarity Turbid (Clear) Urine pH 5.5 (5.0-9.0) Urine Specific [place] 1.011 (1.001-1.035) Urine Protein Negative (Negative) Urine Ketones Negative (Negative) Urine Blood 1+ /uL (Negative) Urine Nitrite Negative (Negative) Urine Bilirubin Negative (Negative) Urine Urobilinogen Normal mg/dL (Negative) Urine Leukocyte Esterase 3+ /uL (Negative) Urine RBC 4 /hpf (0 - 3) Urine WBC Clumps Present /hpf (None Seen) Urine Microscopic WBC 54 /HPF (0-3) Urine Squamous Epithelial Cells None seen /hpf (<5) Urine Bacteria None seen /hpf (None Seen) Urine Yeast (Budding) Occasional /hpf (None Urine Glucose Normal mg/dL (Normal) Troponin I High Sensitivity 104 ng/L (</=54) Other Laboratory Tests 09/14/25 06:05 Brief Hx & Hospital Course: 84 y.o male with PMHx of dementia, HLD, and HTN, presents to the ED via EMS following an unwitnessed fall last night. According to EMS, the patient was found on the floor next to his bed at the [facility] care facility. The patient is currently disoriented, but his baseline mental status is difficult to ascertain due to his known dementia. A limited history was obtained because of his symptoms and cognitive state. 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 Multiple strokes Altered mental status Secondary to metabolic encephalopathy, UTI related, hypernatremia Secondary multiple strokes Urinalysis Leukocytosis/sepsis Respiratory failure Dementia, he may have advanced dementia discharged to hospice with son Condition at Discharge: Poor Final Diagnosis/Problems List see above Discharge Disposition: Hospice - Home Discharge Instruct/Medications Diet: Cardiac 2g Na,low cholest Activity: No Restrictions, As Tolerated Scheduled Cephalexin (Keflex Capsule), 1 CAP PO QID Donepezil Hydrochloride (Aricept), 10 MG PO DAILY, (Reported) Felodipine (Felodipine Er), 10 MG PO DAILY, (Reported) Levofloxacin (Levaquin), 500 MG PO DAILY Levofloxacin Hemihydrate (Levofloxacin), 1 TAB PO DAILY Losartan Potassium (Losartan Potassium), 1 TAB PO DAILY, (Reported) Pravastatin Sodium (Pravachol Tablet), 2 TAB PO QHSP, (Reported) Quetiapine Fumerate (Seroquel), 25 MG PO QHSP, (Reported) Yeast (S. Boulardii)(S. Cerevi (Florastor), 250 MG PO DAILY Scheduled PRN Acetaminophen (Acetaminophen), 500 MG PO Q4HP PRN Discharge Statement: "Patient was advised to return to the ER or call 911 if any headaches, dizziness, shortness of breath, chest pain, abdominal pain, bleeding, fevers, or worsening of medical condition. Patient was counseled about treatment plan, medications, possible side effects, patientverbalized understanding. All questions were answered to the best of my ability. This discharge took greater then 30 minutes in planning, reviewing documentation, counseling the patient, and discussing with other team members." ASSESSMENT ASSESSMENT Assessment UNRULY SANDHU DO Sep 14, 2025 11:57
[2025-09-14] MEDS: POTASSIUM PHOSPHATE 22 MEQ in SODIUM CHL 0.9% 100 ML IV ONE (18:20)
--- NOTE | 2025-09-14 22:44 | DVHPN2 ---
Progress Note - Dictate Date Seen: Sep 14, 2025 Medical Necessity Reason Pt with a Central, PICC or Fol: No Subjective While is a 84 years old gentleman with a history of hypertension, dyslipidemia, TIA, dementia, the patient was brought to the [facility] on 09/15/2025 with a chief complaint of fall, I have seen and examined the patient, I have talked to his nurse, he looks very weak today, eyes are snf open, only responsive to verbal stimuli, he does not move the arms and legs (EN: He tried to pull his mask) Urinalysis, 09/08/2025: WBC: 54, urine leukocyte esterase: 3+ WBC/HB/PLT/MCV, 09/07/2025: 16.6/40.9/326/92.8 Na 09/06/2025: 144, 09/07/2025: 148, 09/09/2025: 149, 09/10/2020 5:151, 09/11/25:153, 09/12/2025: 157, 09/14/2025: 155 BUN/CR, 09/06/2025: 35/1.91, 09/07/2025: 40/1.99, 09/09/2025: 29/1.4, 09/12/2025: 28/0.98 GFR, 09/06/2025: 33, 09/07/2025: 33 TBI/AST/ALT/AP, 09/12/2025: 1.2/47/29/59, 11/14/2024: 1.4/49/48/71 TG/HDL/LDL/HDL, 09/09/2025: 114/136/85/33 Vitamin B12, 09/09/2025: 320 Folic acid, 09/09/2025: 7.59 TSH, 09/09/2025: 1.97 FT4 09/09/2025: 1.18 Extremity venous study, 09/08/2025: No flow noted in the right cephalic vein and no compressibility consistent with thrombosis. Carotid Doppler, 09/08/2025: No appreciable flow within either ICA suggesting either occlusion or near occlusion. MRI head, 09/08/2025: Limited examination. Only DWI and axial T2 images submitted for review. Recommend repeat brain MRI when patient is able to tolerate. 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 Correlate for thromboembolic, vasospastic etiology vital signs Vital Sign Date Time Temp Pulse Resp B/P (MAP) Pulse Ox O2 Delivery O2 Flow Rate FiO2 09/14/25 21:00 98.1 77 20 128/70 (89) 98 98.1 09/14/25 20:00 Simple Mask* 6 50 Total Intake and Output 09/13/25 09/13/25 09/14/25 15:00 23:00 07:00 Intake Total 50 ml 0 ml Output Total 300 ml Balance 50 ml -300 ml medications Current Medications Medications Dose Ordered Sig/Abilio Route Start Time Stop Time Status Last Admin Dose Admin Acetaminophen/ Hydrocodone Bitart 1 tab Q4HP PRN PO 09/06/25 13:00 Ondansetron HCl 4 mg Q4HP PRN IV 09/06/25 13:00 Acetaminophen 650 mg Q6HP PRN PO 09/06/25 13:00 Morphine Sulfate 2 mg Q4HPRN PRN IV 09/06/25 13:00 09/10/25 16:51 2 MG Enoxaparin Sodium 40 mg DAILY SC 09/06/25 13:00 09/14/25 08:31 40 MG Nitroglycerin 0.4 mg Q5MINP PRN SL 09/06/25 13:00 Morphine Sulfate 2 mg Q30M PRN IV 09/06/25 13:00 Ertapenem 1 gm/ Sodium Chloride 50 ml @ 100 mls/hr DAILY IV 09/07/25 10:00 09/13/25 12:42 100 MLS/HR Amino Acids 0 ml @ 0 mls/hr PER PHARMACY IV 09/08/25 15:00 Diagnostic Test (Pha) 1 strip Q6HR 09/08/25 18:00 09/14/25 05:35 1 STRIP Insulin Human Regular FOLLOW SLIDING SCALE Q6HR SC 09/08/25 18:00 09/14/25 13:03 4 UNITS Dextrose 50 ml UD IV 09/08/25 15:30 Amino Acids/ Electrolytes/ Dextrose 1,000 ml @ 42 mls/hr DAILY@2200 IV 09/08/25 22:00 09/14/25 21:21 42 MLS/HR Aspirin 81 mg DAILY PO 09/09/25 10:00 Atorvastatin Calcium 20 mg HS PO 09/09/25 22:00 Cyanocobalamin 500 mcg DAILY PO 09/09/25 10:00 Albuterol 2.5 mg Q6HPRN PRN NEB 09/10/25 12:00 09/14/25 07:58 2.5 MG Azithromycin 250 ml @ 125 mls/hr DAILY IV 09/11/25 10:00 09/14/25 08:30 125 MLS/HR objective General: the patient is well developed and nourished. No acute distress. MENTAL STATUS: Subjective SPEECH, LANGUAGE, HIGHER CORTICAL FUNCTION: Subjective CRANIAL NERVES: Pupils are equal, round and reactive. Gait eye movement. Facial sensation okay in all three divisions bilaterally. Mandibular strength intact. Facial muscles symmetrical and strength intact. SENSATION: Sensation to touch and pinprick is fine MOTOR: Normal tone in the upper and lower extremity. Normal muscle bulk. No fasciculations. No abnormal movements or posturing. Subjective, REFLEXES: Deep tendon reflexes are symmetrical. Up going toes in the feet CEREBELLAR/COORDINATION: Deferred GAIT/STATION: deferred laboratory and microbiology Laboratory Tests 09/14/25 06:05 Test 09/14/25 06:05 Range/Units Serum Glucose 162 H 74-106 mg/dL Problem List Right hemiparesis secondary to multiple strokes Multiple strokes Altered mental status Secondary to metabolic encephalopathy, UTI related, hypernatremia Secondary multiple strokes Urinalysis Leukocytosis/sepsis Respiratory failure Dementia, he may have advanced dementia A fib (Dr. Norris's notes and ER note, she has not captured AFib, SNF med list: No anticoagulant)) Assessment/Plan Monitoring Supportive treatment Telemetry ROMAN Aspirin 81 mg daily Lipitor 10 mg daily Vitamin B12, 500 mcg q.d. DVT prophylaxis/Lovenox Cardiology on case More recommendation per clinical course This medical document was created using an electronic medical record system with [employer] dictation system. Although this document has been carefully reviewed, there may still be some phonetic and typographical errors. These areas are purely typographical due to imperfections of the software programs, and do not reflect any compromise in the patient's medical care. Prognosis poor Dietary Evaluation Review Comments: 1) Initiate Ensure High Protein bid 2) Initiate MVI @ 1 tb qd 3) Initiate vitamin C @ 500 mg bid and zinc sulfate @ 220 mg qd for 7 days 4) Follow-up with neurology, nephrology, cardiology, and pulmonology 5) Continue to monitor I&O, labs, and skin integrity Expected Outcomes/Goals: 1) appetite and labs to improve 2) wounds to improve 3) f/u in 3-5 days Plan discussed with: Other Total Time (mins): 35 ELLA MURDOCK MD Sep 14, 2025 22:44
[2025-09-15 00:01] VITALS: O2SAT 98
[2025-09-15 05:00] VITALS: BP 140/79; PULSE 71; RESP 20; TEMP 97.1; O2SAT 98
[2025-09-15 06:48] LABS: Alkaline Phosphatase 71 U/L (46-116); Anion Gap 8 (5-15); BUN/Creatinine Ratio 30.3 (10.0-20.0); Blood Urea Nitrogen 20 mg/dL (9-23); Calcium 8.8 mg/dL (8.7-10.4); Carbon Dioxide 28 mmol/L (20-31); Magnesium 2.2 mg/dL (1.6-2.6); Potassium 4.1 mmol/L (3.5-5.1); Total Protein 5.9 g/dL (5.7-8.2)
[2025-09-15 06:52] LABS: Alanine Aminotransferase 65 U/L (7-40); Albumin 2.8 g/dL (3.2-4.8); Bilirubin, Total 1.4 mg/dL (0.2-1.0); Chloride 117 mmol/L (98-107); Glucose 142 mg/dL (74-106); Sodium 153 mmol/L (136-145)
[2025-09-15 08:00] VITALS: PULSE 67; RESP 16; O2SAT 96
[2025-09-15 08:43] VITALS: O2SAT 100
--- NOTE | 2025-09-15 10:51 | DVHPN2 ---
Progress Note - Dictate Date Seen: Sep 15, 2025 Medical Necessity Reason Pt with a Central, PICC or Fol: No Subjective While is a 84 years old gentleman with a history of hypertension, dyslipidemia, TIA, dementia, the patient was brought to the [facility] on 09/15/2025 with a chief complaint of fall, I have seen and examined the patient, I have talked to his nurse, he looks better today, eyes are open, moving in the head and is responsive to verbal, he tried to answer but his voice was too weak to understand, he moves the left arm a little bit Urinalysis, 09/08/2025: WBC: 54, urine leukocyte esterase: 3+ WBC/HB/PLT/MCV, 09/07/2025: 16.6/40.9/326/92.8 Na 09/06/2025: 144, 09/07/2025: 148, 09/09/2025: 149, 09/10/2020 5:151, 09/11/25:153, 09/12/2025: 157, 09/14/2025: 155, 09/15/25: 153 BUN/CR, 09/06/2025: 35/1.91, 09/07/2025: 40/1.99, 09/09/2025: 29/1.4, 09/12/2025: 28/0.98 GFR, 09/06/2025: 33, 09/07/2025: 33 TBI/AST/ALT/AP, 09/12/2025: 1.2/47/29/59, 11/14/2024: 1.4/49/48/71 TG/HDL/LDL/HDL, 09/09/2025: 114/136/85/33 Vitamin B12, 09/09/2025: 320 Folic acid, 09/09/2025: 7.59 TSH, 09/09/2025: 1.97 FT4 09/09/2025: 1.18 Extremity venous study, 09/08/2025: No flow noted in the right cephalic vein and no compressibility consistent with thrombosis. Carotid Doppler, 09/08/2025: No appreciable flow within either ICA suggesting either occlusion or near occlusion. MRI head, 09/08/2025: Limited examination. Only DWI and axial T2 images submitted for review. Recommend repeat brain MRI when patient is able to tolerate. 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 Correlate for thromboembolic, vasospastic etiology vital signs Vital Sign Date Time Temp Pulse Resp B/P (MAP) Pulse Ox O2 Delivery O2 Flow Rate FiO2 09/15/25 08:43 100 Mask 8.0 09/15/25 08:43 60 09/15/25 05:00 97.1 71 20 140/79 (99) 97.1 Total Intake and Output 09/14/25 09/14/25 09/15/25 15:00 23:00 07:00 Intake Total 0 ml Output Total 3400 ml Balance -3400 ml 0 ml medications Current Medications Medications Dose Ordered Sig/Abilio Route Start Time Stop Time Status Last Admin Dose Admin Acetaminophen/ Hydrocodone Bitart 1 tab Q4HP PRN PO 09/06/25 13:00 Ondansetron HCl 4 mg Q4HP PRN IV 09/06/25 13:00 Acetaminophen 650 mg Q6HP PRN PO 09/06/25 13:00 Morphine Sulfate 2 mg Q4HPRN PRN IV 09/06/25 13:00 09/10/25 16:51 2 MG Enoxaparin Sodium 40 mg DAILY SC 09/06/25 13:00 09/14/25 08:31 40 MG Nitroglycerin 0.4 mg Q5MINP PRN SL 09/06/25 13:00 Morphine Sulfate 2 mg Q30M PRN IV 09/06/25 13:00 Ertapenem 1 gm/ Sodium Chloride 50 ml @ 100 mls/hr DAILY IV 09/07/25 10:00 09/15/25 09:49 100 MLS/HR Amino Acids 0 ml @ 0 mls/hr PER PHARMACY IV 09/08/25 15:00 Diagnostic Test (Pha) 1 strip Q6HR 09/08/25 18:00 09/15/25 05:31 1 STRIP Insulin Human Regular FOLLOW SLIDING SCALE Q6HR SC 09/08/25 18:00 09/15/25 05:42 2 UNITS Dextrose 50 ml UD IV 09/08/25 15:30 Amino Acids/ Electrolytes/ Dextrose 1,000 ml @ 42 mls/hr DAILY@2200 IV 09/08/25 22:00 09/14/25 21:21 42 MLS/HR Aspirin 81 mg DAILY PO 09/09/25 10:00 Atorvastatin Calcium 20 mg HS PO 09/09/25 22:00 Cyanocobalamin 500 mcg DAILY PO 09/09/25 10:00 Albuterol 2.5 mg Q6HPRN PRN NEB 09/10/25 12:00 09/14/25 07:58 2.5 MG Azithromycin 250 ml @ 125 mls/hr DAILY IV 09/11/25 10:00 09/14/25 08:30 125 MLS/HR objective General: the patient is well developed and nourished. No acute distress. MENTAL STATUS: Subjective SPEECH, LANGUAGE, HIGHER CORTICAL FUNCTION: Subjective CRANIAL NERVES: Pupils are equal, round and reactive. Gait eye movement. Facial sensation okay in all three divisions bilaterally. Mandibular strength intact. Facial muscles symmetrical and strength intact. SENSATION: Sensation to touch and pinprick is fine MOTOR: Normal tone in the upper and lower extremity. Normal muscle bulk. No fasciculations. No abnormal movements or posturing. Subjective, REFLEXES: Deep tendon reflexes are symmetrical. 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 Norris's and ER notes. SNF med list: No anticoagulant) Assessment/Plan Monitoring Supportive treatment Telemetry ROMAN Aspirin 81 mg daily Lipitor 10 mg daily Vitamin B12, 500 mcg q.d. DVT prophylaxis/Lovenox Cardiology on case More recommendation per clinical course This medical document was created using an electronic medical record system with [employer] dictation system. Although this document has been carefully reviewed, there may still be some phonetic and typographical errors. These areas are purely typographical due to imperfections of the software programs, and do not reflect any compromise in the patient's medical care. Prognosis poor Dietary Evaluation Review Comments: 1) Initiate Ensure High Protein bid 2) Initiate MVI @ 1 tb qd 3) Initiate vitamin C @ 500 mg bid and zinc sulfate @ 220 mg qd for 7 days 4) Follow-up with neurology, nephrology, cardiology, and pulmonology 5) Continue to monitor I&O, labs, and skin integrity Expected Outcomes/Goals: 1) appetite and labs to improve 2) wounds to improve 3) f/u in 3-5 days Plan discussed with: Other ELLA MURDOCK MD Sep 15, 2025 10:51
--- NOTE | 2025-09-15 23:57 | DVHPN2 ---
Progress Note - Dictate Date Seen: Sep 15, 2025 Medical Necessity Reason Pt with a Central, PICC or Fol: No Subjective Patient was seen and evaluated in follow up. Patient has no new complaints at this time. Patient denies any cardiac symptoms. Patient is cardiac stable for discharge. Telemetry reviewed. vital signs Vital Sign Date Time Temp Pulse Resp B/P (MAP) Pulse Ox O2 Delivery O2 Flow Rate FiO2 09/15/25 08:43 100 Mask 8.0 09/15/25 08:43 60 09/15/25 08:00 67 09/15/25 08:00 16 09/15/25 05:00 97.1 140/79 (99) 97.1 Total Intake and Output 09/14/25 09/14/25 09/15/25 15:00 23:00 07:00 Intake Total 0 ml Output Total 3400 ml Balance -3400 ml 0 ml objective GENERAL: Altered. EYES: PERRL, EOMI. Anicteric. HENT: Moist mucous membranes. LUNGS: Clear to auscultation bilaterally. CARDIOVASCULAR: Irregular rate and rhythm. ABDOMEN: Soft, non-tender and non-distended. EXTREMITIES: No edema. SKIN: Warm, dry. laboratory and microbiology Laboratory Tests 09/15/25 05:10 09/14/25 06:05 Test 09/15/25 05:10 Range/Units Serum Glucose 142 H 74-106 mg/dL Problem List Paroxysmal atrial fibrillation. Metabolic encephalopathy. Elevated troponin. Dementia. HLD. HTN. History of TIA. Assessment/Plan Continued all current supportive medical care. Nitro SL. DVT prophylactics. IV antibiotics as ordered. Morphine and Elbert for pain management. Additional plan as per the hospital course. Dietary Evaluation Review Comments: 1) Initiate Ensure High Protein bid 2) Initiate MVI @ 1 tb qd 3) Initiate vitamin C @ 500 mg bid and zinc sulfate @ 220 mg qd for 7 days 4) Follow-up with neurology, nephrology, cardiology, and pulmonology 5) Continue to monitor I&O, labs, and skin integrity Expected Outcomes/Goals: 1) appetite and labs to improve 2) wounds to improve 3) f/u in 3-5 days Plan discussed with: Patient BLAINE NASH MD Sep 15, 2025 23:57
== END 2025-09-15 10:31 | disposition hospice, home (50) | DRG 871 ==
LOC: EDBD 05:20 → EDUNIT# 05:20 → ER 05:21 → OVERFLOW 12:53 → TELE-WESTW 16:11
PROVIDERS: ADMIT Internal Medicine; ATTEND Internal Medicine
DX: A41.9 Sepsis, unspecified organism (principal); G93.41 Metabolic encephalopathy; J18.9 Pneumonia, unspecified organism; I63.9 Cerebral infarction, unspecified; J96.90 Respiratory failure, unspecified, unspecified whether with hypoxia or hypercapnia; J69.0 Pneumonitis due to inhalation of food and vomit; N39.0 Urinary tract infection, site not specified; I69.351 Hemiplegia and hemiparesis following cerebral infarction affecting right dominant side; F03.90 Unspecified dementia, unspecified severity, without behavioral disturbance, psychotic disturbance, mood disturbance, and anxiety; I10 Essential (primary) hypertension; E87.0 Hyperosmolality and hypernatremia; R31.29 Other microscopic hematuria; I48.0 Paroxysmal atrial fibrillation; E78.5 Hyperlipidemia, unspecified; R79.89 Other specified abnormal findings of blood chemistry; R91.1 Solitary pulmonary nodule; N40.0 Benign prostatic hyperplasia without lower urinary tract symptoms; I25.10 Atherosclerotic heart disease of native coronary artery without angina pectoris; Z79.82 Long term (current) use of aspirin; Z79.899 Other long term (current) drug therapy; Z80.3 Family history of malignant neoplasm of breast; Z88.0 Allergy status to penicillin; Z91.041 Radiographic dye allergy status
CPT/HCPCS: 36415; 36600; 70450; 70551; 71045; 72170; 74176; 80048; 80053; 80061; 81001; 82607; 82746; 82805; 82962; 83735; 84100; 84154; 84439; 84443; 84478; 84484; 85025; 87086; 92610; 93886; 93971; 94640; 96360; 99291; 99292; G0378; J1335; J1815